=== PATIENT | female | born 1985 | race Caucasian/White ===

== ENCOUNTER 2016-07-01 06:36 | Emergency (ER) | payer OTHER ==
[~2016-07-01] VITALS: Ht 160 cm; Wt 69.6 kg
[~2016-07-01 06:36] MED LIST: HYDR-5688 PO; IBUP-1450 PO
[2016-07-01 06:41] VITALS: TEMP 37; Ht 160 cm; Wt 69.6 kg
[2016-07-01] MEDS ORDERED: TYLOTC500 PO (07:03)
[2016-07-01] MEDS ORDERED: SODIUM CHLORIDE 0.9% 1000ML 1,000 ML IV STA (07:09)
--- NOTE | 2016-07-01 07:20 | EMERGENCY ROOM VISIT NOTE ---
History First contact with patient: 06:59 Chief Complaint: FLANK PAIN Stated Complaint: PAIN/DISCOMFORT IN LEFT SIDE History of Present Illness The patient is a 30 year old female who presents to the Emergency Room with complaints of pain in her left upper abdomen with radiation into the back for the past one week. The patient reports that she has had a "uncomfortable" feeling in her left upper abdomen which radiates to the left flank. She first noticed a gradual onset of pain one week ago. She states that the pain has been constant since then. She reports she believes she has had low-grade fevers throughout the week. She saw her primary care provider 3 days ago, who ordered labs and a urinalysis. She is unsure of the results of these. The patient did have a few episodes of vomiting but has not vomited for 3 days now. She's been taking Tylenol for the pain but did not take any this morning. The patient rates her discomfort a 7/10. She states it is sometimes worse with movement. She denies any history of abdominal surgery. She does report a history of adrenal hyperplasia. She denies any chest pain, shortness of breath , changes in bowel movements. She does state that her urine seems dark in color but denies any other urinary symptoms. Review of Systems A complete 10-point Review of Systems was discussed with the patient, with pertinent positives and negatives listed in the History of Present Illness. All remaining Review of Systems questions can be considered negative unless otherwise specified. Past Medical/Surgical History Medical Problems: (1) Acute thoracic myofascial strain (2) Asthma (3) Congenital adrenal hyperplasia (4) Left elbow tendonitis (5) Mid back pain (6) Pain, dental (7) Work related injury Social History Smoking Status: Current Every Day Smoker Drug Use: none Housing Status: lives with family Occupation Status: employed Current/Historical Medications Scheduled Omeprazole (Prilosec), 40 MG PO DAILY Scheduled PRN Acetaminophen (Tylenol), 1,000 MG PO Q4 PRN for Pain or Fever Allergies Coded Allergies: Silver (Unverified Allergy, Severe, RASH, 07/01/16) Penicillins (Verified Allergy, Unknown, 07/01/16) Physical Exam Vital Signs Date Time Temp Pulse Resp B/P Pulse Ox O2 Delivery O2 Flow Rate FiO2 07/01/16 09:27 83 18 103/57 97 Room Air 07/01/16 08:43 72 18 101/66 98 Room Air 07/01/16 06:41 37.0 110 18 123/80 97 Room Air Physical Exam VITALS: Vitals are noted on the nurse's note and reviewed by myself. Vital signs stable. GENERAL: This is a 30-year-old female, in no acute distress, nondiaphoretic, well-developed well-nourished. HEART: Regular rate and rhythm without murmurs gallops or rubs. LUNGS: Clear to auscultation bilaterally without wheezes, rales or rhonchi. ABDOMEN: Positive bowel sounds x 4. The abdomen is soft. There is mild tenderness of the left upper quadrant and epigastric region. No guarding or rebound tenderness. MUSCULOSKELETAL: No CVA tenderness. NEURO: Patient was alert and oriented to person place and time. Medical Decision & Procedures ER Provider Diagnostic Interpretation: CT OF THE ABDOMEN AND PELVIS WITH CONTRAST TECHNIQUE: Following IV administration of 93 mL of Optiray-320, axial images of the abdomen and pelvis were obtained from the lung bases to the proximal femurs. Images were reviewed in the axial, sagittal, and coronal planes. IV contrast was administered without complication. CT DOSE: 291.64 mGy.cm FINDINGS: The liver, spleen, kidneys and pancreas are normal. Significant bilateral adrenal enlargement, left greater than right, is similar to CT of July 14, 2011. The left adrenal gland measures 7.5 x 2.7 cm. This is similar to prior exam. There is no hydronephrosis. No biliary or pancreatic ductal dilatation is present. No enlarged abdominal or pelvic lymph nodes are present. The caliber and wall thickness of small and large bowel are normal. The appendix is normal. Skeletal structures are unremarkable. Visualized portions of the lower lungs demonstrate tree-in-bud nodules within the right middle lobe and mucoid impaction. IMPRESSION: 1. No acute process within the abdomen or pelvis. 2. No change in significant bilateral adrenal enlargement, left greater than right, since CT of July 14, 2011. The findings favor adrenal hyperplasia. 3. Minimal tree-in-bud opacities within the right middle lobe which suggest a mild bronchiolitis, likely infectious. Laboratory Results 07/01/16 07:15 Red Blood Count 5.24, Mean Corpuscular Volume 87.8, Mean Corpuscular Hemoglobin 31.1, Mean Corpuscular Hemoglobin Concent 35.4, Mean Platelet Volume 10.5, Neutrophils (%) (Auto) 61.8, Lymphocytes (%) (Auto) 23.8, Monocytes (%) (Auto) 10.2, Eosinophils (%) (Auto) 3.4, Basophils (%) (Auto) 0.5, Neutrophils # (Auto ) 5.95, Lymphocytes # (Auto) 2.29, Monocytes # (Auto) 0.98, Eosinophils # (Auto ) 0.33, Basophils # (Auto) 0.05 07/01/16 07:15 Test 07/01/16 07:15 White Blood Count 9.63 K/uL (4.8-10.8) Red Blood Count 5.24 M/uL (4.2-5.4) Hemoglobin 16.3 g/dL (12.0-16.0) Hematocrit 46.0 % (37-47) Mean Corpuscular Volume 87.8 fL (80-100) Mean Corpuscular Hemoglobin 31.1 pg (25-34) Mean Corpuscular Hemoglobin Concent 35.4 g/dl (32-36) Platelet Count 341 K/uL (130-400) Mean Platelet Volume 10.5 fL (7.4-10.4) Neutrophils (%) (Auto) 61.8 % Lymphocytes (%) (Auto) 23.8 % Monocytes (%) (Auto) 10.2 % Eosinophils (%) (Auto) 3.4 % Basophils (%) (Auto) 0.5 % Neutrophils # (Auto) 5.95 K/uL (1.4-6.5) Lymphocytes # (Auto) 2.29 K/uL (1.2-3.4) Monocytes # (Auto) 0.98 K/uL (0.11-0.59) Eosinophils # (Auto) 0.33 K/uL (0-0.5) Basophils # (Auto) 0.05 K/uL (0-0.2) RDW Standard Deviation 41.4 fL (36.4-46.3) RDW Coefficient of Variation 12.8 % (11.5-14.5) Immature Granulocyte % (Auto) 0.3 % Immature Granulocyte # (Auto) 0.03 K/uL (0.00-0.02) Urine Color YELLOW Urine Appearance CLEAR (CLEAR) Urine pH 6.0 (4.5-7.5) Urine Specific [place] 1.013 (1.000-1.030) Urine Protein NEG (NEG) Urine Glucose (UA) NEG (NEG) Urine Ketones NEG (NEG) Urine Occult Blood NEG (NEG) Urine Nitrite NEG (NEG) Urine Bilirubin NEG (NEG) Urine Urobilinogen NEG (NEG) Urine Leukocyte Esterase NEG (NEG) Urine Test NEG (NEG) Anion Gap 12.0 mmol/L (3-11) Est Creatinine Clear Calc Drug Dose 83.8 ml/min Estimated GFR () 97.4 Estimated GFR (Non- 84.1 BUN/Creatinine Ratio 12.9 (10-20) Calcium Level 9.0 mg/dl (8.5-10.1) Total Bilirubin 0.2 mg/dl (0.2-1) Aspartate Amino Transf (AST/SGOT) 15 U/L (15-37) Alanine Aminotransferase (ALT/SGPT) 19 U/L (12-78) Alkaline Phosphatase 87 U/L (45-117) Total Protein 7.7 gm/dl (6.4-8.2) Albumin 4.2 gm/dl (3.4-5.0) Globulin 3.5 gm/dl (2.5-4.0) Albumin/Globulin Ratio 1.2 (0.9-2) Lipase 115 U/L (73-393) Medications Administered Medications (Trade) Dose Ordered Sig/Saul Route Start Time Stop Time Status Last Admin Dose Admin Sodium Chloride (Nss 1000ml) 1,000 ml @ 999 mls/hr Q1H1M STAT IV 07/01/16 07:09 07/01/16 08:09 DC 07/01/16 07:27 999 MLS/HR Morphine Sulfate (MoRPHine SULFATE INJ) 4 mg NOW STAT IV 07/01/16 07:31 07/01/16 07:32 DC 07/01/16 07:42 4 MG Medical Decision Differential diagnosis includes gastritis, cholecystitis, gastroenteritis, colitis, among others. The patient was evaluated as above. Labs were drawn and IV access was obtained. Imaging studies were performed and read by radiology as above. The patient was medicated with 1 L normal saline solution and 4 mg morphine IV. The patient was reassessed multiple times during their stay in the emergency department and remained in stable condition. The patient is a and 30-year-old female who presents today complaining of left upper quadrant abdominal pain. Labs revealed no leukocytosis, anemia or concerning electrolyte abnormalities. Urinalysis was not suggestive of infection. Urine was negative. CT scan of the abdomen and pelvis showed no acute findings. The patient does have adrenal hyperplasia, consistent with her verbal history of congenital adrenal hyperplasia. The patient did have evidence of possible bronchiolitis but has not been complaining of any upper respiratory symptoms. The patient has been here previously for epigastric discomfort and has been diagnosed with possible gastritis. I did recommend that she again began taking a PPI and follow up with her primary care provider. She will return for any worsening pain or any new/concerning symptoms. Based on the patient's presentation, lab results, and imaging studies, I feel the patient is stable for outpatient treatment. The patient's case was reviewed with Dr. Greenwood, ED attending physician, who agreed with my assessment and treatment plan. Discharge instructions were reviewed with the patient. The patient verbalized understanding of my assessment and treatment plan and was discharged home in good condition. Impression Primary Impression: Abdominal pain, left upper quadrant Departure Information Dispostion Home / Self-Care Condition GOOD Prescriptions Omeprazole (Prilosec) 40 Mg Capcr 40 MG PO DAILY for 14 Days, #14 CAP Prov: Miranda Almonte ., YONATHAN 07/01/16 Referrals Cordell Rosas, D.O. (PCP) Patient Instructions My [facility] Additional Instructions You have been treated in the Emergency Department for your Abdominal Pain. Laboratory results and imaging studies have ruled out any emergent causes for your abdominal pain which would warrant admission or surgery. Take Prilosec as prescribed until follow-up with your primary care provider. You may also use Tums or Mylanta [id number] for additional relief of her pain. For pain control, you can use the following [id number] medicines (if >12 yo): - Regular strength (325mg/tab) Tylenol (acetaminophen) 2 tabs every 4-6 hours as needed. Do not exceed 12 tablets in a 24 hour period. Avoid taking more than 4 grams (4000 mg) of Tylenol per day. This includes any other sources of acetaminophen you may take on a regular basis. Drink plenty of water and stay well hydrated. Follow-up with your primary care provider this week. Return to the emergency department if your symptoms persist despite treatment plan outlined above or if the following symptoms occur: fevers, chills, worsening nausea/vomiting, blood in your stool or urine.
[2016-07-01] MEDS ORDERED: MoRPHine SULFATE 4 MG/ML 1 ML CARP\\VIAL IV STA (07:31)
[2016-07-01 07:37] LABS: URINE APPEARANCE CLEAR (CLEAR); URINE BILIRUBIN NEG (NEG); URINE COLOR YELLOW; URINE NITRITE NEG (NEG); URINE SPECIFIC GRAVITY 1.013 (1.000-1.030); UROBILINOGEN NEG (NEG); ZZUR CULT IF INDIC CLEAN CATCH NO
[2016-07-01 07:38] LABS: BASO % 0.5 %; BASO ABS # 0.05 K/uL (0-0.2); COMPLETE YES; EOS % 3.4 %; IG% 0.3 %; LYMPH % 23.8 %; LYMPH ABS # 2.29 K/uL (1.2-3.4); MEAN CELL VOLUME 87.8 fL (80-100); MEAN CORPUSCULAR HEMOGLOBIN 31.1 pg (25-34); MEAN CORPUSCULAR HGB CONC 35.4 g/dl (32-36); MEAN PLATELET VOLUME 10.5 fL (7.4-10.4); MONO % 10.2 %; NEUT % 61.8 %; PLATELET COUNT 341 K/uL (130-400); PREG INTERNAL NEGATIVE QC NEG CLEAR BACKGROUND; PREG INTERNAL POSITIVE QC POS CONTROL LINE; RED BLOOD COUNT 5.24 M/uL (4.2-5.4); WHITE BLOOD COUNT 9.63 K/uL (4.8-10.8)
[2016-07-01 07:40] LABS: MANUAL MICROSCOPIC REQUIRED? NO; REVIEW REQ? NO
[2016-07-01 07:54] LABS: BUN/CREATININE RATIO 12.9 (10-20); CREATININE 0.91 mg/dl (0.60-1.20)
[2016-07-01 07:57] LABS: ALB/GLOB RATIO 1.2 (0.9-2)
--- NOTE | 2016-07-01 08:35 | DIAGNOSTIC IMAGING REPORT ---
CT OF THE ABDOMEN AND PELVIS WITH CONTRAST CLINICAL HISTORY: Left upper quadrant pain and vomiting. COMPARISON STUDY: CT of the abdomen and pelvis July 14, 2011 TECHNIQUE: Following IV administration of 93 mL of Optiray-320, axial images of the abdomen and pelvis were obtained from the lung bases to the proximal femurs. Images were reviewed in the axial, sagittal, and coronal planes. IV contrast was administered without complication. CT DOSE: 291.64 mGy.cm FINDINGS: The liver, spleen, kidneys and pancreas are normal. Significant bilateral adrenal enlargement, left greater than right, is similar to CT of July 14, 2011. The left adrenal gland measures 7.5 x 2.7 cm. This is similar to prior exam. There is no hydronephrosis. No biliary or pancreatic ductal dilatation is present. No enlarged abdominal or pelvic lymph nodes are present. The caliber and wall thickness of small and large bowel are normal. The appendix is normal. Skeletal structures are unremarkable. Visualized portions of the lower lungs demonstrate tree-in-bud nodules within the right middle lobe and mucoid impaction. IMPRESSION: 1. No acute process within the abdomen or pelvis. 2. No change in significant bilateral adrenal enlargement, left greater than right, since CT of July 14, 2011. The findings favor adrenal hyperplasia. 3. Minimal tree-in-bud opacities within the right middle lobe which suggest a mild bronchiolitis, likely infectious. Electronically signed by: Gaston Swan M.D. 07/01/2016 8:33 AM Dictated Date/Time: 07/01/2016 8:18 AM
[2016-07-01] MEDS ORDERED: OMEP40CA PO (09:10)
[2016-07-01 09:27] VITALS: BP 103/57; PULSE 83; O2SAT 97
[2016-07-01] MEDS ORDERED: ALUM-30 PO (17:58)
[2016-07-01] MEDS ORDERED: OXYC1TAB3 PO (19:37)
== END 2016-07-01 09:38 | disposition home or self-care (01) ==
LOC: C.EDB 06:37
DX: R10.12 Left upper quadrant pain (principal); E27.8 Other specified disorders of adrenal gland; J45.909 Unspecified asthma, uncomplicated; F17.200 Nicotine dependence, unspecified, uncomplicated

== ENCOUNTER 2016-07-01 17:01 | Emergency (ER) | payer OTHER ==
[~2016-07-01] VITALS: Ht 160 cm; Wt 70.9 kg
[~2016-07-01 17:01] MED LIST changes: +OMEP40CA PO; +TYLOTC500 PO
[2016-07-01 17:07] VITALS: TEMP 36.8; Ht 160 cm; Wt 70.9 kg
[2016-07-01] MEDS ORDERED: ALUM-30 PO (17:58)
[2016-07-01] MEDS ORDERED: LIDOCAINE HCL 2% VISC SOLN 20 ML UDC PO STA (18:02)
[2016-07-01] MEDS ORDERED: ALUMINUM/MAGNESIUM SUSP 30 ML UDC PO STA (18:02)
[2016-07-01] MEDS ORDERED: OXYCODONE HCL IR 5 MG TAB (IMMEDIATE RELEASE) PO STA (18:49)
[2016-07-01] MEDS ORDERED: OXYC1TAB3 PO (19:37)
--- NOTE | 2016-07-01 19:39 | EMERGENCY ROOM VISIT NOTE ---
History First contact with patient: 17:55 Chief Complaint: FLANK PAIN Stated Complaint: ABD PAIN WORSENING,LF SIDED ABD NEAR BLADDER History of Present Illness The patient is a 30 year old female who presents to the Emergency Room with complaints that her abdominal pain has persisted and gotten worse. The patient states that she was seen in the emergency room this morning for the same symptoms. The patient states that she went home and was able to keep food down. She has not vomited since being in the emergency room. She also states that she got a sharp pain in the left lower abdomen near her bladder but now she has pain in the epigastric and left upper quadrant. The patient denies any chest pain or shortness of breath. The patient states that she came back to the emergency room because at work is what was stated on her discharge papers. Review of Systems 10 system review was performed and was negative unless stated otherwise history of present illness. Past Medical/Surgical History Medical Problems: (1) Acute thoracic myofascial strain (2) Asthma (3) Congenital adrenal hyperplasia (4) Left elbow tendonitis (5) Mid back pain (6) Pain, dental (7) Work related injury Social History Smoking Status: Current Every Day Smoker Drug Use: none Housing Status: lives with family Occupation Status: employed Current/Historical Medications Scheduled Alum & Mag Hydrox-Simethicone (Mylanta), 1 DOSE PO DIRECTED Omeprazole (Prilosec), 40 MG PO DAILY Scheduled PRN Acetaminophen (Tylenol), 1,000 MG PO Q4 PRN for Pain or Fever Allergies Coded Allergies: Silver (Unverified Allergy, Severe, RASH, 07/01/16) Penicillins (Verified Allergy, Unknown, 07/01/16) Physical Exam Vital Signs Date Time Temp Pulse Resp B/P Pulse Ox O2 Delivery O2 Flow Rate FiO2 07/01/16 18:17 70 18 101/54 98 Room Air 07/01/16 17:07 36.8 81 18 119/80 99 Room Air Physical Exam GENERAL: 30-year-old white female appears in no acute distress. MENTAL Status: Alert and oriented 3. MOUTH: Mucosa is moist. NECK: Supple, no lymphadenopathy noted. No carotid bruits noted. LUNGS: Clear auscultation without wheezes rales or rhonchi. CARDIAC: Regular rate and rhythm without murmur. Pulses is full and equal throughout. BACK: No CVA tenderness noted. ABDOMEN: Positive bowel sounds all 4 quadrants. Soft, mild tenderness palpation in the left upper quadrant otherwise nontender to palpation without organomegaly or masses. EXTREMITIES: No cyanosis or edema noted. Medical Decision & Procedures Medications Administered Medications (Trade) Dose Ordered Sig/Saul Route Start Time Stop Time Status Last Admin Dose Admin Lidocaine HCl (Viscous Lidocaine 2% Soln) 10 ml NOW STAT PO 07/01/16 18:02 07/01/16 18:03 DC 07/01/16 18:15 10 ML Al Hydroxide/Mg Hydroxide (Maalox Susp) 30 ml NOW STAT PO 07/01/16 18:02 07/01/16 18:03 DC 07/01/16 18:14 30 ML Oxycodone HCl (Roxicodone Immediate Rel Tab) 5 mg NOW STAT PO 07/01/16 18:49 07/01/16 18:50 DC 07/01/16 18:55 5 MG ED Course The patient was evaluated. The patient's EMR was reviewed from this morning. The patient had a CAT scan without any acute findings this morning. Labs were unremarkable. Urinalysis was negative. The patient was given a GI cocktail. The patient was reevaluated and still was complaining of pain and therefore he was given OxyIR 5 mg by mouth.. The patient was reevaluated was feeling slightly better. The patient was discharged home with her mother driving. Medical Decision Differential diagnosis include acute gastritis, peptic ulcer disease, GERD, UTI , ureteral calculi, diverticulitis, colitis The patient had a full workup earlier today therefore no additional diagnostic imaging or laboratory studies were performed. Impression Primary Impression: Abdominal pain, left upper quadrant Additional Impression: Gastroenteritis Departure Information Dispostion Home / Self-Care Condition GOOD Prescriptions Oxycodone Immediate Rel Tab (ROXICODONE IR) 5 Mg Tab 5 MG PO Q6H Y for Pain, #14 TAB Prov: Cathy Monroy PA-C 07/01/16 Referrals Cordell Rosas D.OEmely (PCP) Forms HOME CARE DOCUMENTATION FORM, IMPORTANT VISIT INFORMATION Patient Instructions My [employer] Additional Instructions Push fluids but did not drink too much. Follow bland diet. Advance diet slowly as tolerated. Take Zofran as needed for nausea. Take OxyIR as needed for pain. Do not drive while taking the OxyIR. Recommend follow-up with your family doctor and possible referral to gastroenterology for colonoscopy and/or endoscopy if symptoms persist. Problem Qualifiers
[2016-07-01 20:05] VITALS: BP 112/73; PULSE 66; O2SAT 98
== END 2016-07-01 20:06 | disposition home or self-care (01) ==
LOC: C.EDB 17:01 → C.EDC 20:06
DX: K52.9 Noninfective gastroenteritis and colitis, unspecified (principal); J45.909 Unspecified asthma, uncomplicated; E27.8 Other specified disorders of adrenal gland; F17.200 Nicotine dependence, unspecified, uncomplicated

== ENCOUNTER 2016-10-11 14:25 | Emergency (ER) | payer OTHER ==
[~2016-10-11] VITALS: Ht 160 cm; Wt 70.4 kg
[~2016-10-11 14:25] MED LIST changes: +ALUM-30 PO; -HYDR-5688 PO; -IBUP-1450 PO; -OMEP40CA PO; +OXYC1TAB3 PO
[2016-10-11 14:47] VITALS: TEMP 36.9; Ht 160 cm; Wt 70.4 kg
--- NOTE | 2016-10-11 16:42 | DIAGNOSTIC IMAGING REPORT ---
RIGHT FOOT MIN 3 VIEWS ROUTINE CLINICAL HISTORY: Dorsal right foot pain and swelling. COMPARISON: None FINDINGS: Tarsometatarsal joints are intact. There is no acute fracture. A lucency within the distal tuft of the distal pharynx the right first toe is likely chronic. IMPRESSION: Lucency within the distal tuft of the distal phalanx of the right great toe. This is probably old although an acute nondisplaced fracture could appear similar. Electronically signed by: Gaston Swan M.D. 10/11/2016 4:41 PM Dictated Date/Time: 10/11/2016 4:39 PM
[2016-10-11] MEDS ORDERED: ASPI325T39 PO (16:53)
[2016-10-11] MEDS ORDERED: HYDR-5688 PO (16:53)
[2016-10-11] MEDS ORDERED: FLR/1 PO (16:53)
[2016-10-11] MEDS ORDERED: PRED-301 PO (16:53)
--- NOTE | 2016-10-11 17:27 | DIAGNOSTIC IMAGING REPORT ---
RIGHT LOWER EXTREMITY VENOUS DOPPLER CLINICAL HISTORY: R dorsal foot pain/swelling - R/O DVT COMPARISON STUDY: No previous studies for comparison. TECHNIQUE: Sonography of the deep venous system of the right lower extremity was performed. Compression and augmentation were evaluated. FINDINGS: The common femoral, superficial femoral and popliteal veins were compressible. Augmentation was normal. Flow was shown within the deep calf vessels. IMPRESSION: No evidence of deep venous thrombus within the right lower extremity. Electronically signed by: Gaston Swan M.D. 10/11/2016 5:25 PM Dictated Date/Time: 10/11/2016 5:25 PM
[2016-10-11 18:17] VITALS: BP 108/58; PULSE 78; O2SAT 97
--- NOTE | 2016-10-11 19:07 | EMERGENCY ROOM VISIT NOTE ---
History First contact with patient: 15:49 Chief Complaint: LEG PAIN,LEG INJURY Stated Complaint: PAIN IN LOWER LEG/ANKLE - SWELLING History of Present Illness The patient is a 31 year old female who presents to the Emergency Room with complaints of right foot pain and swelling for the past 2 days. The patient now reports significant pain with weightbearing, rating her discomfort a 9 out of 10. She denies any known injury. She does work on her feet all day long. She has been applying ice and elevating the foot without relief. The patient has also noticed some paresthesias of the foot as well. The patient denies any prior history of right foot injuries or DVT. The patient went to an urgent care facility yesterday and received a prescription for Vicodin. There was no additional workup performed. Review of Systems 10 system review was performed and was negative except for pertinent positives and negatives as indicated in history of present illness Past Medical/Surgical History Medical Problems: (1) Acute thoracic myofascial strain (2) Asthma (3) Congenital adrenal hyperplasia (4) Left elbow tendonitis (5) Mid back pain (6) Pain, dental (7) Work related injury Family History Unremarkable Social History Smoking Status: Current Every Day Smoker Drug Use: none Housing Status: lives with family Occupation Status: employed Current/Historical Medications Scheduled Aspirin (Aspirin Ec), 325 MG PO BID Fludrocortisone Acetate (Florinef), 1 TAB PO DAILY Hydrocodone/Acetaminophen 5MG/325MG ([place] 5MG/325MG), 1 TABLET PO BID Prednisone (Prednisone), 5 MG PO DAILY Allergies Coded Allergies: Silver (Unverified Allergy, Severe, RASH, 07/01/16) Penicillins (Verified Allergy, Unknown, 07/01/16) Physical Exam Vital Signs Date Time Temp Pulse Resp B/P Pulse Ox O2 Delivery O2 Flow Rate FiO2 10/11/16 18:17 78 19 108/58 97 10/11/16 17:39 84 19 100/55 97 10/11/16 16:29 79 18 114/64 95 Room Air 10/11/16 14:47 36.9 72 20 105/64 97 Room Air Physical Exam CONSTITUTIONAL: Healthy and well nourished. Alert and oriented X 3 with positive affect. Patient does not appear in any acute distress on initial exam. HEENT: Normocephalic, atraumatic. Pupils equal, round and reactive. NECK: Full active range of motion without discomfort. RESPIRATORY: Clear to auscultation bilaterally with no wheezing, crackles, rhonchi or stridor. CARDIOVASCULAR: Regular rate and rhythm with no murmurs, rubs or gallops. GASTROINTESTINAL: Bowel sounds present in all quadrants. Soft and nontender to palpation. MUSCULOSKELETAL: Examination shows moderate edema of the right foot and ankle region. She is tender across the dorsum of the foot. Subtalar motion also worsens her discomfort. No focal tenderness to palpation through the Achilles tendon, calcaneus, metatarsals, phalanges or ankle region. Negative anterior draw. Pedal pulses are intact. INTEGUMENTARY: No rash or other significant dermatologic conditions noted. NEUROLOGIC: No focal neurologic deficits noted. Right foot and toes are sensory intact. Medical Decision & Procedures ER Provider Diagnostic Interpretation: Venous ultrasound of the right lower extremity is negative for deep vein thrombosis. Radiologist report is as follows: RIGHT LOWER EXTREMITY VENOUS DOPPLER CLINICAL HISTORY: R dorsal foot pain/swelling - R/O DVT COMPARISON STUDY: No previous studies for comparison. TECHNIQUE: Sonography of the deep venous system of the right lower extremity was performed. Compression and augmentation were evaluated. FINDINGS: The common femoral, superficial femoral and popliteal veins were compressible. Augmentation was normal. Flow was shown within the deep calf vessels. IMPRESSION: No evidence of deep venous thrombus within the right lower extremity. My interpretation of right foot x-rays does not show any midfoot fractures or subluxation. Radiologist does question an age indeterminate fracture of the tuft of the great toe. Radiologist report is as follows: RIGHT FOOT MIN 3 VIEWS ROUTINE CLINICAL HISTORY: Dorsal right foot pain and swelling. COMPARISON: None FINDINGS: Tarsometatarsal joints are intact. There is no acute fracture. A lucency within the distal tuft of the distal pharynx the right first toe is likely chronic. IMPRESSION: Lucency within the distal tuft of the distal phalanx of the right great toe. This is probably old although an acute nondisplaced fracture could appear similar. ED Course Patient history and physical exam were performed. Nurse's notes were reviewed. Vital signs were reviewed and normal. X-rays of the right foot shows an age indeterminate tuft fracture of the great toe. The patient reports that she dropped a board on her foot last fall, and was seen here. She was told that she did not have any fractures. Venous ultrasound of the right lower extremity today was normal as well. The patient was advised that her clinical exam is suggestive of a midfoot sprain. Crutches were dispensed. The patient argued for a while about how she is to work or get around because of the pain. The patient was advised that if she had intermittently applies ice, elevate the foot and use crutches for ambulation, her pain should be easy to control. She was recently here and received a prescription for Vicodin. She was instructed to follow-up with orthopedics if symptoms persist. The patient voiced understanding of all discharge instructions, and rated her discomfort a 4 out of 10 at the time of discharge. [place] Drug Monitoring Program Search Results: patient reviewed within database, no issues identified Impression Primary Impression: Sprain of right foot Departure Information Referrals Cordell Rosas, D.OEmely (PCP) Patient Instructions My [facility] Problem Qualifiers Primary Impression: Sprain of right foot Encounter type: initial encounter Qualified Codes: S93.601A - Unspecified sprain of right foot, initial encounter
== END 2016-10-11 18:27 | disposition home or self-care (01) ==
LOC: C.EDB 14:26 → C.EDC 18:27
DX: S93.601A Unspecified sprain of right foot, initial encounter (principal); X58.XXXA Exposure to other specified factors, initial encounter; J45.909 Unspecified asthma, uncomplicated; F17.200 Nicotine dependence, unspecified, uncomplicated; Z87.828 Personal history of other (healed) physical injury and trauma; Z88.0 Allergy status to penicillin; Z91.09 Other allergy status, other than to drugs and biological substances

== ENCOUNTER 2016-11-18 10:46 | Emergency (ER) | payer OTHER ==
[~2016-11-18] VITALS: Ht 161.3 cm; Wt 67.2 kg
[~2016-11-18 10:46] MED LIST changes: -ALUM-30 PO; +ASPI325T39 PO; +FLR/1 PO; +HYDR-5688 PO; -OXYC1TAB3 PO; +PRED-301 PO; -TYLOTC500 PO
[2016-11-18 10:50] VITALS: TEMP 36.9; Ht 161.3 cm; Wt 67.2 kg
[2016-11-18] MEDS ORDERED: ACETAMINOPHEN/CODEINE 300/30MG TAB PO ONE (11:15)
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
[2016-11-18] MEDS ORDERED: HYDR-5688 PO (14:29)
[2016-11-18 14:47] VITALS: BP 123/80; PULSE 74; O2SAT 99
== END 2016-11-18 14:48 | disposition home or self-care (01) ==
LOC: C.EDB 10:47 → C.EDD 14:48
DX: S22.32XA Fracture of one rib, left side, initial encounter for closed fracture (principal); V49.50XA Passenger injured in collision with unspecified motor vehicles in traffic accident, initial encounter; M46.92 Unspecified inflammatory spondylopathy, cervical region; M46.90 Unspecified inflammatory spondylopathy, site unspecified; J45.909 Unspecified asthma, uncomplicated; F17.210 Nicotine dependence, cigarettes, uncomplicated; Z87.828 Personal history of other (healed) physical injury and trauma; Z87.11 Personal history of peptic ulcer disease; Z79.82 Long term (current) use of aspirin; Z79.899 Other long term (current) drug therapy; Z88.0 Allergy status to penicillin; Z91.09 Other allergy status, other than to drugs and biological substances

== ENCOUNTER 2017-01-14 18:16 | Emergency (ER) | payer OTHER ==
[~2017-01-14] VITALS: Ht 162.6 cm; Wt 73.3 kg
[~2017-01-14 18:16] MED LIST changes: -FLR/1 PO; -PRED-301 PO
[2017-01-14 18:25] VITALS: TEMP 36.6; Ht 162.6 cm; Wt 73.3 kg
--- NOTE | 2017-01-14 18:50 | EMERGENCY ROOM VISIT NOTE ---
History Report prepared by Bonilla: Bijan Barksdale Under the Supervision of: Dr. Shubham Dyer M.D. First contact with patient: 18:30 Chief Complaint: SWELLING TO EXTREMITY Stated Complaint: LOWER EXT SWELLING AND PAIN History of Present Illness The patient is a 31 year old female who presents to the Emergency Room with complaints of worsening bilateral leg swelling for the past two weeks. The patient states that she was on vacation, and the swelling went into her left leg. A few days later the patient got some swelling in her right leg. The patient states that today she tried to get up for work, and she was having leg pain and swelling worse than before. She additionally states that she has been having headaches and some shortness of breath, though she smokes. 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 The patient denies any family history of blood clots. She states that she is taking prednisone, Florinef and Tylenol for the pain. The patient has a history of adrenal hyperplasia. Source of History: patient Onset: two weeks ago Position: leg (bilateral) Quality: other (swelling) Timing: worsening Associated Symptoms: + headache, + SOB Review of Systems See HPI for pertinent positives & negatives. A total of 10 systems reviewed and were otherwise negative. Past Medical & Surgical Medical Problems: (1) Acute thoracic myofascial strain (2) Asthma (3) Congenital adrenal hyperplasia (4) Left elbow tendonitis (5) Mid back pain (6) Pain, dental (7) Work related injury Old medical records were reviewed. Nurse's notes were reviewed and I agree with. Social History Smoking Status: Current Every Day Smoker Drug Use: none Housing Status: lives with family Occupation Status: employed Current/Historical Medications Scheduled Fludrocortisone Acetate (Florinef), 0.1 MG PO HS Prednisone (Prednisone), 5 MG PO HS Allergies Coded Allergies: Silver (Unverified Allergy, Severe, RASH, 01/14/17) Penicillins (Verified Allergy, Unknown, 01/14/17) Physical Exam Vital Signs Date Time Temp Pulse Resp B/P (MAP) Pulse Ox O2 Delivery O2 Flow Rate FiO2 01/14/17 18:25 36.6 88 16 107/63 94 Room Air Physical Exam General: Non-ill appearing young female in no acute distress. HEENT: Normal cephalic atraumatic. Pupils are equal round and reactive to light. Extraocular movements are intact. Oropharynx is pink with moist mucous membranes. No swelling of the mouth lips or tongue. Neck: Supple with a midline trachea. No meningeal signs or stiffness, no JVD or bruits. No Stridor. Chest: Clear to auscultation bilaterally. No wheezes or rhonchi. No increased work of breathing. Heart: regular rate and rhythm. Abdomen: Soft nontender, nondistended without rebound guarding or rigidity. Extremities: Lower extremities have edema bilaterally mostly lateral. No redness or warmth. No calf tenderness. No cyanosis clubbing. No calf tenderness or assymetry Spine/Back. Non tender to palpation. No CVA tenderness Skin: Good turgor without rashes. Neurologic exam: Cranial nerves two through 12 are intact. Motor and sensation are intact and symmetrical throughout. Medical Decision & Procedures ER Provider Diagnostic Interpretation: Radiology results as stated below per my review and radiologist interpretation: ULTRASOUND BILATERAL LOWER EXTREMITY VENOUS CLINICAL HISTORY: Lower extremity pain and swelling. COMPARISON STUDY: Right lower extremity venous ultrasound dated 10/11/2016. TECHNIQUE: Real-time, grayscale, and color Doppler sonography of the deep veins of the right and left lower extremity was performed from the inguinal crease to the calf. Compression and augmentation were utilized. FINDINGS: There is no sonographic evidence of deep venous thrombosis identified in the right or left lower extremity. The common femoral, superficial femoral, and popliteal veins are patent and normally compressible bilaterally. The greater saphenous vein and the profunda femoris vein at the junction with the common femoral vein are clear in both legs. The visualized calf veins are patent bilaterally. Benign-appearing inguinal lymph nodes are incidentally noted. IMPRESSION: There is no sonographic evidence of deep venous thrombosis identified in the right or left lower extremity. Electronically signed by: Geovanny Goodman M.D. 01/14/2017 7:46 PM Dictated Date/Time: 01/14/2017 7:45 PM SINGLE VIEW CHEST CLINICAL HISTORY: Atypical chest pain. FINDINGS: An AP, portable, upright chest radiograph is compared to study dated 11/18/2016. The examination is degraded by portable technique and patient rotation. The cardiomediastinal silhouette is unremarkable. The lungs and pleural spaces are clear. No pneumothorax is seen. The bony thorax is grossly intact. IMPRESSION: No active disease in the chest Electronically signed by: Geovanny Goodman M.D. 01/14/2017 7:05 PM Dictated Date/Time: 01/14/2017 7:03 PM Laboratory Results 01/14/17 18:50 Red Blood Count 4.63, Mean Corpuscular Volume 91.6, Mean Corpuscular Hemoglobin 30.0, Mean Corpuscular Hemoglobin Concent 32.8, Mean Platelet Volume 9.4, Neutrophils (%) (Auto) 54.2, Lymphocytes (%) (Auto) 28.6, Monocytes (%) (Auto) 11.0, Eosinophils (%) (Auto) 5.1, Basophils (%) (Auto) 0.8, Neutrophils # (Auto ) 4.18, Lymphocytes # (Auto) 2.20, Monocytes # (Auto) 0.85, Eosinophils # (Auto ) 0.39, Basophils # (Auto) 0.06 01/14/17 18:50 Test 01/14/17 18:50 01/14/17 18:56 White Blood Count 7.70 K/uL (4.8-10.8) Red Blood Count 4.63 M/uL (4.2-5.4) Hemoglobin 13.9 g/dL (12.0-16.0) Hematocrit 42.4 % (37-47) Mean Corpuscular Volume 91.6 fL (80-100) Mean Corpuscular Hemoglobin 30.0 pg (25-34) Mean Corpuscular Hemoglobin Concent 32.8 g/dl (32-36) Platelet Count 348 K/uL (130-400) Mean Platelet Volume 9.4 fL (7.4-10.4) Neutrophils (%) (Auto) 54.2 % Lymphocytes (%) (Auto) 28.6 % Monocytes (%) (Auto) 11.0 % Eosinophils (%) (Auto) 5.1 % Basophils (%) (Auto) 0.8 % Neutrophils # (Auto) 4.18 K/uL (1.4-6.5) Lymphocytes # (Auto) 2.20 K/uL (1.2-3.4) Monocytes # (Auto) 0.85 K/uL (0.11-0.59) Eosinophils # (Auto) 0.39 K/uL (0-0.5) Basophils # (Auto) 0.06 K/uL (0-0.2) RDW Standard Deviation 47.1 fL (36.4-46.3) RDW Coefficient of Variation 14.0 % (11.5-14.5) Immature Granulocyte % (Auto) 0.3 % Immature Granulocyte # (Auto) 0.02 K/uL (0.00-0.02) Anion Gap 5.0 mmol/L (3-11) Est Creatinine Clear Calc Drug Dose 101.6 ml/min Estimated GFR () 116.6 Estimated GFR (Non- 100.6 BUN/Creatinine Ratio 13.4 (10-20) Uric Acid 4.9 mg/dl (2.6-7.2) Calcium Level 8.6 mg/dl (8.5-10.1) Total Bilirubin 0.4 mg/dl (0.2-1) Direct Bilirubin < 0.1 mg/dl (0-0.2) Aspartate Amino Transf (AST/SGOT) 20 U/L (15-37) Alanine Aminotransferase (ALT/SGPT) 24 U/L (12-78) Alkaline Phosphatase 76 U/L (45-117) Pro-B-Type Natriuretic Peptide 18 pg/ml (0-450) Total Protein 6.9 gm/dl (6.4-8.2) Albumin 3.6 gm/dl (3.4-5.0) Lipase 56 U/L (73-393) Thyroid Stimulating Hormone (TSH) 2.360 uIu/ml (0.300-4.500) Bedside Troponin I < 0.030 ng/ml (0-0.045) Laboratory studies as stated above per my review. ECG Indication: other (leg swelling) Rate (beats per minute): 82 Rhythm: normal sinus Findings: no acute ischemic change, other (Early repolarization) Comparison ECG Date: 08/09/11 Change: no significant change ED Course 0: Past medical records reviewed. The patient was evaluated in room B9, and a complete history and physical examination were performed. 1910: I reassessed the patient, and she was waiting for her ultrasound. 1950: Upon reevaluation, the patient is feeling well. I discussed the results and treatment plan with her. She verbalized agreement of the treatment plan. The patient was discharged home. Medical Decision Differentials include, but are not limited to; DVT, peripheral edema, cardiac disease, thyroid disease. This patient comes in as described above. She was placed in room B9. She has had bilateral lower extremity edema it has been hot and she does work on her feet. She does have congenital adrenal hyperplasia and has been taking her Florinef and prednisone has not missed any dosages. She has had no other symptoms. No chest pain or shortness of breath. No known injury. She was seen at [facility] [place] and referred here for possible DVTs. IV access established , EKG, chest x-ray, urinalysis and blood work were obtained. I also ordered ultrasounds of her legs bilaterally. She was reassessed frequently. EKG shows early repolarization unchanged from previous EKG. In no acute ischemic changes. Chest x-ray does not suggest congestive heart failure, pneumonia, or pneumothorax. She's had no fever or white count to suggest infection. There are no elevation of cardiac enzymes. There are no acute electrolyte or metabolic abnormalities. Clinically she does not appear to have cellulitis. Is no thyroid disease. BNP is not elevated nor is to troponin. There is no evidence to suggest any right-sided heart failure. Ultrasound shows no DVTs. Some of this may be from the hot weather and standing up at work. At this point , there is nothing to suggest this is related to the Florinef or adrenal hypoplasia. I told her to rest and elevate return if increasing pain or swelling, chest pain, shortness breath, fever chills, any new problems or concerns. Follow-up with her doctor this week for recheck. She was happy with plan and discharged to home. Medication Reconcilliation Current Medication List: was personally reviewed by me Blood Pressure Screening Patient's blood pressure: Normal blood pressure Impression Primary Impression: Bilateral lower extremity edema Scribe Attestation The scribe's documentation has been prepared under my direction and personally reviewed by me in its entirety. I confirm that the note above accurately reflects all work, treatment, procedures, and medical decision making performed by me. Departure Information Dispostion Home / Self-Care Referrals Cordell Rosas D.O. (PCP) Forms HOME CARE DOCUMENTATION FORM, IMPORTANT VISIT INFORMATION, WORK / SCHOOL INSTRUCTIONS Patient Instructions [facility] Additional Instructions Rest. Elevate your feet. Return if: Increasing pain or swelling, worsening symptoms, fever or chills, any new problems concerns. Follow-up with your doctor this week for recheck.
[2017-01-14 19:01] LABS: BASO % 0.8 %; BASO ABS # 0.06 K/uL (0-0.2); COMPLETE YES; EOS % 5.1 %; HEMATOCRIT 42.4 % (37-47); IG% 0.3 %; LYMPH % 28.6 %; MEAN CELL VOLUME 91.6 fL (80-100); MEAN CORPUSCULAR HGB CONC 32.8 g/dl (32-36); MEAN PLATELET VOLUME 9.4 fL (7.4-10.4); NEUT % 54.2 %; PLATELET COUNT 348 K/uL (130-400); RED BLOOD COUNT 4.63 M/uL (4.2-5.4)
--- NOTE | 2017-01-14 19:06 | DIAGNOSTIC IMAGING REPORT ---
SINGLE VIEW CHEST CLINICAL HISTORY: Atypical chest pain. FINDINGS: An AP, portable, upright chest radiograph is compared to study dated 11/18/2016. The examination is degraded by portable technique and patient rotation. The cardiomediastinal silhouette is unremarkable. The lungs and pleural spaces are clear. No pneumothorax is seen. The bony thorax is grossly intact. IMPRESSION: No active disease in the chest. Electronically signed by: Geovanny Goodman M.D. 01/14/2017 7:05 PM Dictated Date/Time: 01/14/2017 7:03 PM
[2017-01-14] MEDS ORDERED: PRED-301 PO (19:13)
[2017-01-14] MEDS ORDERED: FLUD0.1T10 PO (19:13)
[2017-01-14 19:18] LABS: ALT/SGPT 24 U/L (12-78); AST/SGOT 20 U/L (15-37); BLOOD UREA NITROGEN 10 mg/dl (7-18); BUN/CREATININE RATIO 13.4 (10-20); CALCIUM 8.6 mg/dl (8.5-10.1); CARBON DIOXIDE 29 mmol/L (21-32); CHLORIDE 105 mmol/L (98-107); CREATININE 0.78 mg/dl (0.60-1.20); GLUCOSE 84 mg/dl (70-99); SODIUM 139 mmol/L (136-145); URIC ACID 4.9 mg/dl (2.6-7.2)
[2017-01-14 19:29] LABS: ALKALINE PHOSPHATASE 76 U/L (45-117)
--- NOTE | 2017-01-14 19:47 | DIAGNOSTIC IMAGING REPORT ---
ULTRASOUND BILATERAL LOWER EXTREMITY VENOUS CLINICAL HISTORY: Lower extremity pain and swelling. COMPARISON STUDY: Right lower extremity venous ultrasound dated 10/11/2016. TECHNIQUE: Real-time, grayscale, and color Doppler sonography of the deep veins of the right and left lower extremity was performed from the inguinal crease to the calf. Compression and augmentation were utilized. FINDINGS: There is no sonographic evidence of deep venous thrombosis identified in the right or left lower extremity. The common femoral, superficial femoral, and popliteal veins are patent and normally compressible bilaterally. The greater saphenous vein and the profunda femoris vein at the junction with the common femoral vein are clear in both legs. The visualized calf veins are patent bilaterally. Benign-appearing inguinal lymph nodes are incidentally noted. IMPRESSION: There is no sonographic evidence of deep venous thrombosis identified in the right or left lower extremity. Electronically signed by: Geovanny Goodman M.D. 01/14/2017 7:46 PM Dictated Date/Time: 01/14/2017 7:45 PM
[2017-01-14 20:48] VITALS: BP 105/49; PULSE 71; O2SAT 100
[2017-01-14 21:43] LABS: URINE APPEARANCE CLEAR (CLEAR); URINE BILIRUBIN NEG (NEG); URINE COLOR YELLOW; URINE NITRITE NEG (NEG); URINE PH 7.5 (4.5-7.5); URINE SPECIFIC GRAVITY 1.009 (1.000-1.030); UROBILINOGEN NEG (NEG)
[2017-01-14 21:48] LABS: MANUAL MICROSCOPIC REQUIRED? NO; REVIEW REQ? NO
== END 2017-01-14 20:55 | disposition home or self-care (01) ==
LOC: C.EDB 18:17
DX: R60.0 Localized edema (principal); R51 Headache; F17.210 Nicotine dependence, cigarettes, uncomplicated; E27.8 Other specified disorders of adrenal gland; J45.909 Unspecified asthma, uncomplicated; E25.0 Congenital adrenogenital disorders associated with enzyme deficiency; Z79.899 Other long term (current) drug therapy

== ENCOUNTER 2017-09-09 12:14 | Emergency (ER) | payer OTHER ==
[~2017-09-09] VITALS: Ht 160 cm; Wt 74.8 kg
[~2017-09-09 12:14] MED LIST changes: -ASPI325T39 PO; +FLUD0.1T10 PO; -HYDR-5688 PO; +PRED-301 PO
[2017-09-09 12:30] VITALS: TEMP 36.8; Ht 160 cm; Wt 74.8 kg
[2017-09-09] MEDS ORDERED: BUPR8SUB19 SL (13:29)
[2017-09-09 13:48] LABS: BASO % 0.7 %; BASO ABS # 0.04 K/uL (0-0.2); EOS % 3.8 %; EOS ABS # 0.23 K/uL (0-0.5); HEMOGLOBIN 13.9 g/dL (12.0-16.0); IG# 0.01 K/uL (0.00-0.02); LYMPH % 31.7 %; LYMPH ABS # 1.93 K/uL (1.2-3.4); MEAN CELL VOLUME 89.4 fL (80-100); MEAN CORPUSCULAR HEMOGLOBIN 28.9 pg (25-34); MEAN CORPUSCULAR HGB CONC 32.3 g/dl (32-36); MEAN PLATELET VOLUME 9.6 fL (7.4-10.4); MONO % 12.2 %; MONO ABS # 0.74 K/uL (0.11-0.59); NEUT % 51.4 %; NEUT ABS # 3.13 K/uL (1.4-6.5); PLATELET COUNT 349 K/uL (130-400); RED CELL DISTRIBUTION WIDTH CV 14.4 % (11.5-14.5); RED CELL DISTRIBUTION WIDTH SD 47.7 fL (36.4-46.3); WHITE BLOOD COUNT 6.08 K/uL (4.8-10.8)
--- NOTE | 2017-09-09 13:50 | DIAGNOSTIC IMAGING REPORT ---
L-SPINE MIN 4 VIEWS ROUTINE CLINICAL HISTORY: Low back pain COMPARISON: Lumbar spine radiographs December 29, 2012. FINDINGS: There is minimal leftward curvature of the lumbar spine. Vertebral body heights are maintained. There is no fracture or suspicious lesion. There is mild disc space narrowing at L5-S1. Bowel gas pattern is normal. There is a moderate amount stool within the colon. IMPRESSION: 1. No lumbar spine fracture or subluxation. 2. Mild disc space narrowing at L5-S1. 3. Slight leftward curvature of the lumbar spine. Electronically signed by: Gaston Swan M.D. 09/09/2017 1:48 PM Dictated Date/Time: 09/09/2017 1:47 PM
[2017-09-09 14:26] LABS: ALBUMIN 3.6 gm/dl (3.4-5.0); CALCIUM 8.6 mg/dl (8.5-10.1); CREATININE 0.78 mg/dl (0.60-1.20)
[2017-09-09 14:30] LABS: TOTAL PROTEIN 6.9 gm/dl (6.4-8.2)
--- NOTE | 2017-09-09 15:13 | DIAGNOSTIC IMAGING REPORT ---
ULTRASOUND VENOUS DOPPLER LWR EXT BILA CLINICAL HISTORY: Bilateral lower extremity edema COMPARISON STUDY: No previous studies for comparison. FINDINGS: Real-time and color flow Doppler imaging were performed. Flow was seen within the femoral, popliteal and calf veins with no intraluminal thrombus demonstrated. The saphenous vein is patent. There are mildly prominent bilateral inguinal lymph nodes. IMPRESSION: No evidence of lower extremity DVT. Electronically signed by: Dinh Powell M.D. 09/09/2017 3:12 PM Dictated Date/Time: 09/09/2017 3:11 PM
--- NOTE | 2017-09-09 17:02 | DIAGNOSTIC IMAGING REPORT ---
(CHEST FOR PE) ANGIO WITH CT DOSE: 553.65 mGy.cm HISTORY: Chest pain dyspnea TECHNIQUE: Multiaxial CT images of the chest were performed following the intravenous administration of contrast to evaluate the pulmonary arteries. Maximal intensity projection images were also obtained. A dose lowering technique was utilized adhering to the principles of ALARA. COMPARISON STUDY: None. FINDINGS: The thoracic aorta is normal. The pulmonary vasculature enhances uniformly. No filling defects are appreciated. Bibasilar atelectatic change. The lungs otherwise appear clear. Moderate mediastinal adenopathy. Right para esophageal node image 85 measuring 1.3 cm. Para-aortic nodes measuring to 1.5 cm. Left paratracheal nodes measuring 1.6 cm. Subcarinal nodes measuring 2.5 cm. Left hilar nodes measuring to 1.3 cm. Right hilar nodes measuring to 1.5 cm. Small hiatal hernia. Splenomegaly measuring 11.5 cm. IMPRESSION: 1. Study is negative for pulmonary embolus. 2. Bibasilar atelectatic change. 3. Significant mediastinal and hilar adenopathy. 4. Splenic enlargement 5. Follow-up should be performed to exclude entities such as lymphoma/sarcoid. The above report was generated using voice recognition software. It may contain grammatical, syntax or spelling errors. Electronically signed by: Chencho Monroy M.D. 09/09/2017 5:01 PM Dictated Date/Time: 09/09/2017 4:54 PM
--- NOTE | 2017-09-09 17:08 | DIAGNOSTIC IMAGING REPORT ---
CT ABD/PELVIS IV CONTRAST ONLY CLINICAL HISTORY: Lower extremity edema, erythema COMPARISON STUDY: 07/01/2016 TECHNIQUE: Following the IV administration of 116 mL of [id number]-320, CT scan of the abdomen and pelvis was performed from the lung bases to the proximal femurs. Images are reviewed in the axial, sagittal, and coronal planes. IV contrast was administered without complication. A dose lowering technique was utilized adhering to the principles of ALARA. CT DOSE: FINDINGS: Lower chest: There are lingular right middle lobe and bilateral lower lobe atelectatic changes. A 9 mm pleural-based opacity within the right middle lobe while nonspecific likely reflects focal atelectasis. There is mild prominence the parasagittal soft tissues and subcarinal adenopathy is suspected. Liver: The contrast-enhanced liver is normal in size, contour, and attenuation. There is no intrahepatic biliary ductal dilatation. The hepatic veins and portal veins are patent. Gallbladder: Unremarkable. Spleen: Normal in size and attenuation. Pancreas: Unremarkable. Adrenal glands: There is persistent bilateral adrenal gland enlargement, left markedly greater than right. The left adrenal gland measures 81 x 28 mm. This finding has been present on studies dating back to 2011. This strongly favors a diagnosis of adrenal gland hyperplasia Kidneys: There is symmetric renal cortical enhancement. The kidneys are normal in size without hydronephrosis. Bowel: There are no transition zones to indicate bowel obstruction. There is no acute diverticulitis. The appendix appears normal. There is mild fecal retention. Peritoneum: There is no intraperitoneal free air or abdominal ascites. Vasculature: The abdominal aorta is normal in course and caliber. Adenopathy: Inguinal lymph nodes are the upper limits of normal in size. Pelvic viscera: The bladder, and pelvic viscera are unremarkable. Skeletal structures: No destructive osseous lesions are seen. IMPRESSION: 1. No evidence of bowel obstruction. No evidence of free air 2. Persistent significant bilateral adrenal gland enlargement left greater than right, likely representing adrenal hyperplasia 3. Suspected subcarinal lymphadenopathy 4. Inguinal lymph nodes at the upper limits of normal in size Electronically signed by: Dinh Powell M.D. 09/09/2017 5:07 PM Dictated Date/Time: 09/09/2017 4:59 PM
[2017-09-09] MEDS ORDERED: OPTIRAY 320 IV PRN (17:15)
[2017-09-09] MEDS ORDERED: HYDROCORTISONE SOD SUCCINATE 100 MG/2 ML VIAL IV STA (18:35)
[2017-09-09] MEDS ORDERED: CEPH500C PO (18:48)
--- NOTE | 2017-09-09 18:53 | EMERGENCY ROOM VISIT NOTE ---
History First contact with patient: 12:51 Chief Complaint: FOOT PAIN Stated Complaint: SWELLING IN FEET,TINGLING AND NUMBNESS,RANDOM PAIN History of Present Illness The patient is a 32 year old female who presents to the Emergency Room via private vehicle with complaints of "swelling in feet, tingling and numbness, random pain". The patient states that she has a history of congenital adrenal hyperplasia, and has not been taking her medication recently. She states that she is here today because she is tingling in the bilateral legs and feet, sharp pains in her back and behind her knees. She also notes that she was eating breakfast today she developed sudden onset of swelling in her feet. She states that she can no longer put her shoes on. She states that she has been 55 days sober from drugs. She states that she had swelling of this in her legs before but that was from standing for long periods of time she states that is not the case at this time. She states it also feels that there is a knot in her back. She denies any chest pain, shortness of breath, fevers or chills. She notes that she may have some sweats at times. Review of Systems A complete 10-point Review of Systems was discussed with the patient, with pertinent positives and negatives listed in the History of Present Illness. All remaining Review of Systems questions can be considered negative unless otherwise specified. Past Medical/Surgical History Medical Problems: (1) Abdominal pain, left upper quadrant (2) Acute thoracic myofascial strain (3) Asthma (4) Congenital adrenal hyperplasia (5) History of congenital adrenal hyperplasia (6) Hx of drug abuse (7) Left elbow tendonitis (8) Mid back pain (9) Pain, dental (10) Sprain of right foot (11) Work related injury (12) Wrist pain, left Surgical Problems: (1) Hx of carpal tunnel repair Social History Smoking Status: Current Every Day Smoker Drug Use: none Housing Status: lives with family Occupation Status: employed Current/Historical Medications Scheduled Buprenorphine Hcl (Subutex), 1 DOSE SL DAILY Cephalexin Monohydrate (Keflex), 500 MG PO TID Fludrocortisone Acetate (Florinef), 0.1 MG PO HS Prednisone (Prednisone), 5 MG PO HS Physical Exam Vital Signs Date Time Temp Pulse Resp B/P (MAP) Pulse Ox O2 Delivery O2 Flow Rate FiO2 09/09/17 19:00 85 16 102/76 98 09/09/17 18:16 93 22 119/78 97 Room Air 09/09/17 12:30 36.8 97 18 118/79 96 Room Air Physical Exam VITAL SIGNS - Vital signs and nursing notes were reviewed. Stable. GENERAL - 32-year-old female appearing her stated age who is in no acute distress. Communicates well with provider and answers questions appropriately. SKIN -there is minimal erythema of the bilateral lower extremities. There is also edema of the feet and ankle regions and distal shins. HEAD - NC/AT. EYES - Sclera anicteric. EARS - No deformities of external structures noted on gross examination bilaterally. NOSE - Midline and without cyanosis. No epistaxis or purulent drainage noted. MOUTH/OROPHARYNX - Without perioral cyanosis. NECK - Neck with FROM. No nuchal rigidity. LUNGS - Chest wall symmetric without accessory muscle use, intercostals retractions, or central cyanosis. Normal vesicular breath sounds CTA B/L. No wheezes, rales, or rhonchi appreciated. CARDIAC - RRR with S1/S2. No murmur, rubs, or gallops appreciated. EXTREMITIES - +5/5 strength noted in UE/LE bilaterally. There is edema noted to the bilateral lower extremity with erythema. NEUROLOGIC - Cranial nerves II through XII grossly intact. Sensory intact to light touch throughout. PSYCH - A&O, and cooperates fully with examiner. Pt is very pleasant and interacts well with examiner. Medical Decision & Procedures ER Provider Diagnostic Interpretation: (CHEST FOR PE) ANGIO WITH CT DOSE: 553.65 mGy.cm HISTORY: Chest pain dyspnea TECHNIQUE: Multiaxial CT images of the chest were performed following the intravenous administration of contrast to evaluate the pulmonary arteries. Maximal intensity projection images were also obtained. A dose lowering technique was utilized adhering to the principles of ALARA. COMPARISON STUDY: None. FINDINGS: The thoracic aorta is normal. The pulmonary vasculature enhances uniformly. No filling defects are appreciated. Bibasilar atelectatic change. The lungs otherwise appear clear. Moderate mediastinal adenopathy. Right para esophageal node image 85 measuring 1.3 cm. Para-aortic nodes measuring to 1.5 cm. Left paratracheal nodes measuring 1.6 cm. Subcarinal nodes measuring 2.5 cm. Left hilar nodes measuring to 1.3 cm. Right hilar nodes measuring to 1.5 cm. Small hiatal hernia. Splenomegaly measuring 11.5 cm. IMPRESSION: 1. Study is negative for pulmonary embolus. 2. Bibasilar atelectatic change. 3. Significant mediastinal and hilar adenopathy. 4. Splenic enlargement 5. Follow-up should be performed to exclude entities such as lymphoma/sarcoid. The above report was generated using voice recognition software. It may contain grammatical, syntax or spelling errors. Electronically signed by: Chencho Monroy M.D. 09/09/2017 5:01 PM Dictated Date/Time: 09/09/2017 4:[address] ABD/PELVIS IV CONTRAST ONLY CLINICAL HISTORY: Lower extremity edema, erythema COMPARISON STUDY: 07/01/2016 TECHNIQUE: Following the IV administration of 116 mL of [id number]-320, CT scan of the abdomen and pelvis was performed from the lung bases to the proximal femurs. Images are reviewed in the axial, sagittal, and coronal planes. IV contrast was administered without complication. A dose lowering technique was utilized adhering to the principles of ALARA. CT DOSE: FINDINGS: Lower chest: There are lingular right middle lobe and bilateral lower lobe atelectatic changes. A 9 mm pleural-based opacity within the right middle lobe while nonspecific likely reflects focal atelectasis. There is mild prominence the parasagittal soft tissues and subcarinal adenopathy is suspected. Liver: The contrast-enhanced liver is normal in size, contour, and attenuation. There is no intrahepatic biliary ductal dilatation. The hepatic veins and portal veins are patent. Gallbladder: Unremarkable. Spleen: Normal in size and attenuation. Pancreas: Unremarkable. Adrenal glands: There is persistent bilateral adrenal gland enlargement, left markedly greater than right. The left adrenal gland measures 81 x 28 mm. This finding has been present on studies dating back to 2011. This strongly favors a diagnosis of adrenal gland hyperplasia Kidneys: There is symmetric renal cortical enhancement. The kidneys are normal in size without hydronephrosis. Bowel: There are no transition zones to indicate bowel obstruction. There is no acute diverticulitis. The appendix appears normal. There is mild fecal retention. Peritoneum: There is no intraperitoneal free air or abdominal ascites. Vasculature: The abdominal aorta is normal in course and caliber. Adenopathy: Inguinal lymph nodes are the upper limits of normal in size. Pelvic viscera: The bladder, and pelvic viscera are unremarkable. Skeletal structures: No destructive osseous lesions are seen. IMPRESSION: 1. No evidence of bowel obstruction. No evidence of free air 2. Persistent significant bilateral adrenal gland enlargement left greater than right, likely representing adrenal hyperplasia 3. Suspected subcarinal lymphadenopathy 4. Inguinal lymph nodes at the upper limits of normal in size Electronically signed by: Dinh Powell M.D. 09/09/2017 5:07 PM Dictated Date/Time: 09/09/2017 4:59 PM L-SPINE MIN 4 VIEWS ROUTINE CLINICAL HISTORY: Low back pain COMPARISON: Lumbar spine radiographs December 29, 2012. FINDINGS: There is minimal leftward curvature of the lumbar spine. Vertebral body heights are maintained. There is no fracture or suspicious lesion. There is mild disc space narrowing at L5-S1. Bowel gas pattern is normal. There is a moderate amount stool within the colon. IMPRESSION: 1. No lumbar spine fracture or subluxation. 2. Mild disc space narrowing at L5-S1. 3. Slight leftward curvature of the lumbar spine. Electronically signed by: Gaston Swan M.D. 09/09/2017 1:48 PM Dictated Date/Time: 09/09/2017 1:47 PM ULTRASOUND VENOUS DOPPLER LWR EXT BILA CLINICAL HISTORY: Bilateral lower extremity edema COMPARISON STUDY: No previous studies for comparison. FINDINGS: Real-time and color flow Doppler imaging were performed. Flow was seen within the femoral, popliteal and calf veins with no intraluminal thrombus demonstrated. The saphenous vein is patent. There are mildly prominent bilateral inguinal lymph nodes. IMPRESSION: No evidence of lower extremity DVT. Electronically signed by: Dinh Powell M.D. 09/09/2017 3:12 PM Dictated Date/Time: 09/09/2017 3:11 PM Laboratory Results 09/09/17 13:24 Red Blood Count 4.81, Mean Corpuscular Volume 89.4, Mean Corpuscular Hemoglobin 28.9, Mean Corpuscular Hemoglobin Concent 32.3, Mean Platelet Volume 9.6, Neutrophils (%) (Auto) 51.4, Lymphocytes (%) (Auto) 31.7, Monocytes (%) (Auto) 12.2, Eosinophils (%) (Auto) 3.8, Basophils (%) (Auto) 0.7, Neutrophils # (Auto ) 3.13, Lymphocytes # (Auto) 1.93, Monocytes # (Auto) 0.74, Eosinophils # (Auto ) 0.23, Basophils # (Auto) 0.04 09/09/17 13:24 Test 09/09/17 13:24 White Blood Count 6.08 K/uL (4.8-10.8) Red Blood Count 4.81 M/uL (4.2-5.4) Hemoglobin 13.9 g/dL (12.0-16.0) Hematocrit 43.0 % (37-47) Mean Corpuscular Volume 89.4 fL (80-100) Mean Corpuscular Hemoglobin 28.9 pg (25-34) Mean Corpuscular Hemoglobin Concent 32.3 g/dl (32-36) Platelet Count 349 K/uL (130-400) Mean Platelet Volume 9.6 fL (7.4-10.4) Neutrophils (%) (Auto) 51.4 % Lymphocytes (%) (Auto) 31.7 % Monocytes (%) (Auto) 12.2 % Eosinophils (%) (Auto) 3.8 % Basophils (%) (Auto) 0.7 % Neutrophils # (Auto) 3.13 K/uL (1.4-6.5) Lymphocytes # (Auto) 1.93 K/uL (1.2-3.4) Monocytes # (Auto) 0.74 K/uL (0.11-0.59) Eosinophils # (Auto) 0.23 K/uL (0-0.5) Basophils # (Auto) 0.04 K/uL (0-0.2) RDW Standard Deviation 47.7 fL (36.4-46.3) RDW Coefficient of Variation 14.4 % (11.5-14.5) Immature Granulocyte % (Auto) 0.2 % Immature Granulocyte # (Auto) 0.01 K/uL (0.00-0.02) Anion Gap 7.0 mmol/L (3-11) Est Creatinine Clear Calc Drug Dose 99.4 ml/min Estimated GFR () 115.8 Estimated GFR (Non- 99.9 BUN/Creatinine Ratio 15.4 (10-20) Calcium Level 8.6 mg/dl (8.5-10.1) Total Bilirubin 0.4 mg/dl (0.2-1) Aspartate Amino Transf (AST/SGOT) U/L (15-37) Alanine Aminotransferase (ALT/SGPT) 35 U/L (12-78) Alkaline Phosphatase 86 U/L (45-117) Pro-B-Type Natriuretic Peptide 32 pg/ml (0-450) Total Protein 6.9 gm/dl (6.4-8.2) Albumin 3.6 gm/dl (3.4-5.0) Globulin 3.3 gm/dl (2.5-4.0) Albumin/Globulin Ratio 1.1 (0.9-2) Human Chorionic Gonadotropin, Qual NEG (NEG) Medications Administered Medications (Trade) Dose Ordered Sig/Saul Route Start Time Stop Time Status Last Admin Dose Admin Hydrocortisone Sodium Succinate (Solu-Cortef IV) 100 mg NOW STAT IV 09/09/17 18:35 09/09/17 18:36 DC 09/09/17 18:35 100 MG Medical Decision Patient was seen and evaluated as above in room D6. Review was performed of nursing notes and vital signs. After obtaining a thorough history and physical examination the above work up was performed. She presents today with lower back pain and bilateral lower extremity edema. She is nontoxic on exam. Vital signs are stable. CBC reveals no concerning leukocytosis or anemia. Metabolic panel reveals no concerning electrolyte abnormality, kidney function, LFT abnormality. BNP normal. HCG negative. Negative. I did obtain a CAT scan of the abdomen and pelvis as well as CTA as the patient There vital signs are stable. Imaging was obtained in the lower extremities. No DVT. There is significant edema of the lower extremities. This is more than expected for this patient.I did obtain a lumbar spine x-ray as well. Throughout her stay had more and more lower extremity edema. She was also seen by the attending physician. A bedside ultrasound was performed of the heart/limited echo. No abnormalities are seen. Good ejection fraction noted from the emergency department standpoint. These imaging studies do reveal a large amount of adenopathy. I did discuss this with the attending physician and subsequently the hospitalist. They came to evaluate the patient. It was identified that the patient could be managed in the outpatient setting. I was recommended to provide an IV dose of steroids here. As well as provide her with p.o. Keflex for home per the admission team. This was provided. She is to follow with the family doctor/material yard clerk. I did inform her upon possibilities of which can cause the lymph node enlargement. She is to return with worsening. The patient was educated upon management, had questions answered prior to discharge , and was discharged home in good condition. She was placed upon p.o. Keflex, noting that she said as a child penicillins caused a rash. I discussed with her benefit versus risk of initiating this medication and the decision was made to initiate. Case was discussed with the attending physician. In the evaluation and treatment of this patient the following differential diagnoses were entertained: UT, PE, DVT, adrenal insufficiency, adrenal crisis, mass pressing upon the IVC, urticarial reaction, among others. Impression Primary Impression: Lower extremity edema Additional Impressions: Hilar adenopathy Mediastinal adenopathy Departure Information Dispostion Home / Self-Care Condition GOOD Prescriptions Cephalexin Monohydrate (Keflex) 500 Mg Cap 500 MG PO TID for 10 Days, #30 CAP Prov: Duane Alvarado PA-C 09/09/17 Referrals No Doctor, Assigned (PCP) Patient Instructions My [facility] Additional Instructions You were seen in the emergency department for swelling in her lower extremities. At this time we have given you IV steroids. We will also begin with oral antibiotics in the case of a small infection. As we discussed you do have a penicillin allergy and these are in a similar family so if you develop any rash, hives or problems please stop and return. I do recommend follow-up with the family doctor for the enlarged lymph nodes in your chest as you may need to see a cotton factor/oncologist. Please continue your regular medications with the steroid. Please return with any new/concerning symptoms. If you are not able to follow-up within the next 7 days please call back here to help arrange appointment at [phone] and ask for watch case polisher. Thank you for your time. Problem Qualifiers
[2017-09-09 19:00] VITALS: BP 102/76; PULSE 85; O2SAT 98
--- NOTE | 2017-09-09 20:48 | Medical Consult ---
Consultation Date of Consultation: Sep 09, 2017. Attending Physician: Reason for Consultation: Request by ER physician to evaluate History of Present Illness Pt is 32 y/o F with PMH congenital adrenal hyperplasia, hx IV heroin use presented to ER with c/o LE edema. Pt reports this morning woke up and was eating breakfast and noticed swelling to bilateral feet and lower legs with associated tingling sensation. States thinks legs looked a little red. Denies injury/trauma to legs or open wounds. Hx LE edema approx 7 months ago which lasted several days and resolved and had negative LE dopplers at that time. Reports hx low back pain, having some pain to lower back today also and doesn't feel worse than normal. Denies recent injury or trauma. Denies loss control of bowel/bladder, saddle paresthesias. Pt admits hasn't used her steroids for approx 6 months. Reports stopped using IV drugs 2 months ago and when would use , would inject to bilateral arms. Denies fever/chills, diaphoresis, N/V/D/C, CASE , dizziness, vision changes, neck pain, CP, SOB, orthopnea, palpitations, cough , sore throat, choking, otalgia, rhinorrhea, abdominal pain, extremity weakness , rashes, urinary symptoms. Past Medical/Surgical History Medical Problems: (1) Abdominal pain, left upper quadrant Status: Resolved (2) Acute thoracic myofascial strain Status: Resolved (3) Asthma Status: Chronic (4) Congenital adrenal hyperplasia Status: Chronic (5) History of congenital adrenal hyperplasia Status: Chronic (6) Hx of drug abuse Status: Chronic (7) Left elbow tendonitis Status: Resolved (8) Mid back pain Status: Resolved (9) Pain, dental Status: Resolved (10) Sprain of right foot Status: Resolved (11) Work related injury Status: Resolved (12) Wrist pain, left Status: Resolved Surgical Problems: (1) Hx of carpal tunnel repair Status: Resolved Family History FH: congenital adrenal hyperplasia - brother, grandfather Social History Smoking Status: Current Every Day Smoker Smokeless Tobacco Use: No Alcohol Use: occasionally Drug Use: none (denies current use, reports been clean for past 2 months) Housing Status: lives with family Occupation Status: employed Allergies Coded Allergies: Silver (Unverified Allergy, Severe, RASH, 09/09/17) Penicillins (Verified Allergy, Unknown, 09/09/17) Current Inpatient Medications Current Inpatient Medications Medications (Trade) Dose Ordered Sig/Saul Route Start Time Stop Time Status Last Admin Dose Admin Ioversol (Optiray 320) 116 ml UD PRN IV 09/09/17 17:15 09/13/17 17:14 Review of Systems See HPI for pertinent positives & negatives. All other systems reviewed and were otherwise negative Physical Exam Date Time Temp Pulse Resp B/P (MAP) Pulse Ox O2 Delivery O2 Flow Rate FiO2 09/09/17 18:16 93 22 119/78 97 Room Air 09/09/17 12:30 36.8 97 18 118/79 96 Room Air General Appearance: no apparent distress, + pertinent finding (appears older than stated age) Head: normocephalic, atraumatic Eyes: normal inspection ENT: hearing grossly normal Respiratory/Chest: lungs clear, normal breath sounds, no respiratory distress Cardiovascular: regular rate, rhythm, normal peripheral pulses Abdomen/GI: normal bowel sounds, non tender, soft Extremities/Musculoskelatal: normal capillary refill, normal range of motion, + pedal edema (bilateral, no significant erythema or red streaking or open wounds noted to lower extremities. ROM intact, sensation to light touch intact) Neurologic/Psych: alert, normal mood/affect, oriented x 3 Skin: normal color, warm/dry Laboratory Results Last 24 Hours Test 09/09/17 13:24 White Blood Count 6.08 K/uL Red Blood Count 4.81 M/uL Hemoglobin 13.9 g/dL Hematocrit 43.0 % Mean Corpuscular Volume 89.4 fL Mean Corpuscular Hemoglobin 28.9 pg Mean Corpuscular Hemoglobin Concent 32.3 g/dl Platelet Count 349 K/uL Mean Platelet Volume 9.6 fL Neutrophils (%) (Auto) 51.4 % Lymphocytes (%) (Auto) 31.7 % Monocytes (%) (Auto) 12.2 % Eosinophils (%) (Auto) 3.8 % Basophils (%) (Auto) 0.7 % Neutrophils # (Auto) 3.13 K/uL Lymphocytes # (Auto) 1.93 K/uL Monocytes # (Auto) 0.74 K/uL Eosinophils # (Auto) 0.23 K/uL Basophils # (Auto) 0.04 K/uL RDW Standard Deviation 47.7 fL RDW Coefficient of Variation 14.4 % Immature Granulocyte % (Auto) 0.2 % Immature Granulocyte # (Auto) 0.01 K/uL Sodium Level 137 mmol/L Potassium Level mmol/L Chloride Level 104 mmol/L Carbon Dioxide Level 26 mmol/L Anion Gap 7.0 mmol/L Blood Urea Nitrogen 12 mg/dl Creatinine 0.78 mg/dl Est Creatinine Clear Calc Drug Dose 99.4 ml/min Estimated GFR () 115.8 Estimated GFR (Non- 99.9 BUN/Creatinine Ratio 15.4 Random Glucose 95 mg/dl Calcium Level 8.6 mg/dl Total Bilirubin 0.4 mg/dl Aspartate Amino Transf (AST/SGOT) U/L Alanine Aminotransferase (ALT/SGPT) 35 U/L Alkaline Phosphatase 86 U/L Pro-B-Type Natriuretic Peptide 32 pg/ml Total Protein 6.9 gm/dl Albumin 3.6 gm/dl Globulin 3.3 gm/dl Albumin/Globulin Ratio 1.1 Human Chorionic Gonadotropin, Qual NEG Assessment & Plan LE EDEMA Pt with B/L LE edema today. Negative U/S LE for DVT. Recommend elevation LE. Could do trial oral antibiotics. To return if any worsening. MEDIASTINAL/HILAR ADENOPATHY Vitals stable, labs WNL. No SOB or CP. -recommend pt f/u with PCP, may need further f/u with heme/onc out patient. CT CHEST:IMPRESSION: 1. Study is negative for pulmonary embolus. 2. Bibasilar atelectatic change. 3. Significant mediastinal and hilar adenopathy. 4. Splenic enlargement 5. Follow-up should be performed to exclude entities such as lymphoma/sarcoid. CT ABD/PELVIS: IMPRESSION: 1. No evidence of bowel obstruction. No evidence of free air 2. Persistent significant bilateral adrenal gland enlargement left greater than right, likely representing adrenal hyperplasia 3. Suspected subcarinal lymphadenopathy 4. Inguinal lymph nodes at the upper limits of normal in size CHRONIC BACK PAIN: No bowel/bladder incontinence or saddle paresthesias CT L SPINE: IMPRESSION: 1. No lumbar spine fracture or subluxation. 2. Mild disc space narrowing at L5-S1. 3. Slight leftward curvature of the lumbar spine. CONGENITAL ADRENAL HYPERPLASIA Pt to resume her prednisone, Florinef as directed. F/U with citrus peeler Disposition: Pt was seen with Dr Becerril. See addendum Feel pt can do out patient trial with close f/u with PCP and [facility] Follows with Dr Rosas for routine care Patient is a 32 yr female with PMH of IV drug use, congenial adrenal hyperplasia , Medication non compliance and other problems presents with B/L LE swelling. Venous doppler was negative of DVT. Patient had also reported similar B/L LE swelling which spontaneously resolved as per patient. She reports some LE discomfort and tingling sensation. She was noted to have significant mediastinal and hilar adenopathy and splenomegaly on CT scan incidentally. Patient denied any chest pain, SOB, cough, fever, chills, abd pain. Patient admitted that she has not been taking his Florinef and prednisone since at least 6 months. Physical Exam: B/L LE swelling CTA S1, S2 B/L LE edema CAH: Follows with citrus peeler in [place] Lymphadenopathy/Splenomegaly Non compliance Patient received Hydrocortisone in ED Advised to resume Florinef, prednisone Was DCed home on empiric oral ABx Advised close follow up with PCP, Endocrinology and Heme oncology as outpatient Also advised to consider Infectious disease as outpatient Advised that repeat CT is needed to assess resolution and possible need for biopsy Seek immediate medical attention if your symptoms reoccur or worsen I personally reviewed the record. Patient is interviewed and examined at bedside. Patient's care is coordinated with Yamilet Garcia PA-C. Please refer to the documentation above for details of patient's presentation and for discussion of other issues. Additional Copies To Cordell Rosas D.O.
== END 2017-09-09 19:00 | disposition home or self-care (01) ==
LOC: C.EDB 12:15 → C.EDD 19:00
DX: R60.0 Localized edema (principal); R59.1 Generalized enlarged lymph nodes; E25.0 Congenital adrenogenital disorders associated with enzyme deficiency; J45.909 Unspecified asthma, uncomplicated; F17.200 Nicotine dependence, unspecified, uncomplicated

== ENCOUNTER 2018-01-18 10:55 | Emergency (ER) | payer OTHER ==
[~2018-01-18] VITALS: Ht 160 cm; Wt 75.4 kg
[~2018-01-18 10:55] MED LIST changes: +BUPR8SUB19 SL
[2018-01-18 10:57] VITALS: TEMP 36.9; Ht 160 cm; Wt 75.4 kg
[2018-01-18 12:18] VITALS: BP 125/90; PULSE 102; O2SAT 97
--- NOTE | 2018-01-18 17:15 | EMERGENCY ROOM VISIT NOTE ---
History First contact with patient: 11:00 Chief Complaint: WRIST PAIN Stated Complaint: WRIST PAIN, NUMBNESS History of Present Illness The patient is a 32 year old female who presents to the Emergency Room with complaints of numbness and tingling of her fingers, as well as pain extending from her hand, through the forearm and into the elbow region. 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 He reports that he is barely high enough to operate the arm to slice the potatoes. The patient reports that doing so significantly worsens his pain. He denies any other trauma to the right upper extremity. He is right-hand dominant. The patient is status post bilateral carpal tunnel release.. He denies any neck pain, and rates his discomfort a 3 out of 10. The patient is right-hand dominant. Review of Systems 10 system review was performed and was negative except for pertinent positives and negatives as indicated in history of present illness Past Medical/Surgical History Medical Problems: (1) Abdominal pain, left upper quadrant (2) Acute thoracic myofascial strain (3) Asthma (4) Congenital adrenal hyperplasia (5) History of congenital adrenal hyperplasia (6) Hx of drug abuse (7) Left elbow tendonitis (8) Mid back pain (9) Pain, dental (10) Sprain of right foot (11) Work related injury (12) Wrist pain, left Surgical Problems: (1) Hx of carpal tunnel repair Family History Unremarkable Social History Smoking Status: Current Every Day Smoker Drug Use: none Housing Status: lives with family Occupation Status: employed Current/Historical Medications Scheduled Fludrocortisone Acetate (Florinef), 0.1 MG PO HS Prednisone (Prednisone), 5 MG PO HS Physical Exam Vital Signs Date Time Temp Pulse Resp B/P (MAP) Pulse Ox O2 Delivery O2 Flow Rate FiO2 01/18/18 12:18 102 20 125/90 97 01/18/18 10:57 36.9 75 17 120/82 95 Room Air Physical Exam CONSTITUTIONAL: Healthy and well nourished. Alert and oriented X 3 with positive affect. HEENT: Normocephalic, atraumatic. Pupils equal, round and reactive. NECK: Full active range of motion without discomfort. MUSCULOSKELETAL: Examination shows generalized tenderness to palpation of all the muscles through the forearm. He is also tender over the lateral and medial epicondyles, lateral worse than medial. Resisted extension and flexion of the wrist worsens his discomfort over the epicondyles. He has no worsening pain with pronation and supination. He has generalized tenderness to palpation through the muscles of the forearm and volar wrist region. Capillary refill of the fingers is less than 2 seconds. He is able to individually flex and extend all fingers. INTEGUMENTARY: No rash or other significant dermatologic conditions noted. NEUROLOGIC: Right hand and fingers are sensory intact. No thenar or interosseous flattening/atrophy noted. Medical Decision & Procedures ED Course Patient history and physical exam were performed. Nurse's notes were reviewed. Vital signs were reviewed and were normal. The patient was advised that his symptoms are likely secondary to his activities at work. The patient was advised that his condition is called overuse syndrome. A wrist brace was applied. She was encouraged to intermittently apply ice to the wrist, forearm and elbow region. I did recommend orthopedic follow-up if needed for further management of symptoms are not improving within the next week, which is unlikely given his job duties. She was encouraged alternate ibuprofen and Tylenol as needed for pain. The patient voiced understanding of all discharge instructions, was happy with plan of care, and rated her discomfort a 3 out of 10 at the time of discharge. Medical Decision Impression Primary Impression: Right arm tendonitis Additional Impression: Right upper extremity overuse syndrome Departure Information Dispostion Home / Self-Care Condition GOOD Referrals Ike Cage D.O. Cordell Rosas D.O. (PCP) No Doctor, Assigned Forms HOME CARE DOCUMENTATION FORM, IMPORTANT VISIT INFORMATION Patient Instructions My [facility] Additional Instructions Continue to intermittently apply ice to the arm. Wear wrist brace when working. Ibuprofen 800 mg and/or Tylenol 1000 mg every 8 hours. You may also alternate these medications for more effective pain relief: Ibuprofen --4 HRS--> Tylenol --4 HRS--> ibuprofen --4 HRS--> Tylenol .... Follow-up with [facility] (Dr. Cage) for further management -call for appointment. Problem Qualifiers
== END 2018-01-18 12:14 | disposition home or self-care (01) ==
LOC: C.EDB 10:56 → C.EDD 12:14
DX: M77.8 Other enthesopathies, not elsewhere classified (principal); M70.90 Unspecified soft tissue disorder related to use, overuse and pressure of unspecified site; J45.909 Unspecified asthma, uncomplicated; E25.0 Congenital adrenogenital disorders associated with enzyme deficiency; F17.210 Nicotine dependence, cigarettes, uncomplicated; Z79.899 Other long term (current) drug therapy

== ENCOUNTER 2024-08-30 15:58 | Observation (INO) ==
[2024-08-30 17:04] LABS: Basophils # (auto) 0.04 K/uL (0.00-0.20); Basophils % (auto) 0.4 %; Eosinophils # (auto) 0.14 K/uL (0.00-0.50); Eosinophils % (auto) 1.4 %; Hematocrit (blood only) 46.7 % (37.0-47.0); Hemoglobin 15.8 g/dl (12.0-16.0); Immature Granulocytes # (auto) 0.04 K/uL (0.01-0.20); Immature Granulocytes % (auto) 0.4 %; Lymphocytes # (auto) 1.17 K/uL (1.20-3.40); Lymphocytes % (auto) 11.5 %; Mean Corpuscular Hemoglobin 29.9 pg (25.0-34.0); Mean Corpuscular Hgb Conc 33.8 g/dL (32.0-36.0); Mean Corpuscular Volume 88.3 fL (80.0-100.0); Mean Platelet Volume 10.1 fL (9.4-12.4); Monocytes # (auto) 0.74 K/uL (0.11-0.59); Monocytes % (auto) 7.3 %; Neutrophils # (auto) 8.04 K/uL (1.40-6.50); Platelet Count 341 K/uL (130-400); RDW Coefficient of Variation 12.8 % (11.5-14.5); RDW Standard Deviation 41.2 fL (36.4-46.3); Red Blood Count 5.29 M/uL (4.20-5.40); White Blood Count 10.17 K/ul (4.8-10.8)
--- NOTE | 2024-08-30 17:04 | Emergency Department Note ---
Impression & Plan Nausea vomiting and diarrhea, High serum lactate, Elevated procalcitonin, Congenital adrenal hyperplasia ED Provider Note CHIEF COMPLAINT: Flu like symptoms HISTORY OF PRESENTING ILLNESS: This 39 year old female patient presents to the ER for evaluation of fevers, nausea, vomiting, and diarrhea. Also having some chills and body aches. Fever 102 F max. Symptoms started abruptly last night. Not able to keep much fluid down and not able to eat. Having a headache as well. Not really having abdominal pain, just the discomfort from the vomiting and diarrhea. Denies chest pain or SOB. Took Tylenol yesterday without improvement of her symptoms. She is not on any blood thinners. She has a history of congenital adrenal hyperplasia and is on steroids on a regular basis. However, she has been unable to keep down her oral steroids. She is supposed to take a stress dose injection if she can't keep her medications down. However, she did not have any of the stress dose of steroids at home because of problems with availability at the pharmacy and problems with insurance. She follows with endocrinology through [facility]. Her stress dose of steroids is Decadron 4 mg IM per patient and [facility] records. REVIEW OF SYSTEMS: See HPI for pertinent positives and pertinent negatives. ALLERGIES: Silver, PCN MEDICATIONS: See below PAST MEDICAL HISTORY: See below PHYSICAL EXAM: Vital Signs: Vitals are noted on the nurse's note and reviewed by myself. GENERAL: Non toxic in appearance and in no acute distress. SKIN: Capillary reflex less than 2 seconds. HEAD: Normocephalic, atraumatic. EARS: Bilateral external auditory canals clear without tragus tenderness. Bilateral tympanic membranes pearly salgado without erythema or effusion. No mastoid tenderness bilaterally. EYES: Pupils equal round and reactive to light and accommodation. Conjunctivae without injection, sclerae without icterus. Extraocular movements intact. NOSE: Patent, turbinates inflamed with no discharge. No sinus tenderness. MOUTH: Mucous membranes moist. Airway patent, uvula midline. Pharynx is not erythematous and not edematous without exudate. Pharynx without postnasal drip. No evidence for peritonsillar abscess. NECK: Supple without nuchal rigidity. No lymphadenopathy. HEART: Regular rate and rhythm without murmurs gallops or rubs. LUNGS: Clear to auscultation bilaterally without wheezes, rales or rhonchi. No accessory muscle use or retractions. ABDOMEN: Positive bowel sounds x 4. Normal tympanic percussion. Soft, nontender to palpation. No masses or hepatosplenomegaly. No guarding, rigidity, or rebound tenderness. No CVA tenderness. No focal RLQ or LLQ tenderness. NEURO: Patient was alert and oriented. DIFFERENTIAL DIAGNOSIS: Differential diagnosis includes viral gastroenteritis, bacterial gastroenteritis, food poisoning, viral syndrome, RSV, Influenza, COVID, strep throat, pharyngitis/tonsillitis, mononucleosis, retropharyngeal abscess, peritonsillar abscess, otitis media, otitis externa, sinusitis, bronchitis, pneumonia, as well as other pathologies. ED COURSE AND MEDICAL DECISION MAKING: MEDICATIONS GIVEN: Decadron 4 mg IV, Zofran 4 mg IV, Tylenol 1000 mg IV, Toradol 10 mg IV. Reglan 10 mg IV. Pepcid 20 mg IV. A total of 1750 mL normal saline solution bolus. Rocephin 2 g IV. MONITOR: Continuous manager monitoring: Order was placed for continuous manager monitoring. Patient was placed on the manager monitoring and continuous pulse ox. Patient was noted to be in normal sinus rhythm at an initial rate of 90 bpm per my interpretation. INTERPRETATION OF LABS: I interpreted the labs with full lab results as below in the lab section of this note. Laboratory results pertinent to the emergent complaint are discussed in the MDM section below. The patient was advised to follow up with their PCP and/or specialist(s) for further outpatient monitoring and management of any abnormal results. INTERPRETATION OF IMAGING: Imaging studies were interpreted by myself and read by radiology as per the imaging section of this note. The patient was advised to follow up with their PCP and/or specialist(s) for further outpatient management of any non-emergent abnormal findings. Chest x-ray negative for pneumonia or other acute cardiopulmonary etiology. CT scan of the abdomen pelvis with IV contrast shows a fat density area involving the lateral aspect of the enlarged left adrenal gland has increased in the previous examination and now measures 1.7 x 1.4 cm where it was 1.1 x 0.8 cm previously. Otherwise, the previously described bilateral adrenal hypertrophic changes (L>R) are stable in appearance. No evidence for focal high-grade bowel obstruction. Fluid and gas distended small bowel throughout the abdomen and pelvis without dilation is nonspecific in appearance but suggests a diffuse enteritis. No obvious asymmetric bowel mucosal abnormality. Minimal stool burden. Questionable prominent fluid in the descending colon raises a suspicion for potential coexisting diarrheal disease. No for diverticulitis. No free air or pneumoperitoneum. EXTERNAL RECORDS REVIEWED: I reviewed the patient's records from [facility] endocrinology from 11/24/2023. CHRONIC MEDICAL/SOCIAL CONDITIONS AFFECTING CARE: Congenital adrenal hyperplasia CONSULTATIONS: On-call hospitalist MDM SUMMARY: The patient was seen during a time of extreme volume and extreme acuity. Nursing triage protocols were initiated with IV lock, labs, and/or imaging studies conducted by protocol in the triage area. The patient was initially evaluated in a triage room and then re-evaluated once they were taken back to an exam room. The patient started with nausea, vomiting, diarrhea last evening. She then had a fever of 102 F maximum today. She denies any significant abdominal pain. Denies any cough, chest pain, or shortness of breath. The patient has a history of congenital adrenal hyperplasia and has been taking her baseline dose of steroids, but ran out of her stress dose of steroids. The patient was mildly tachycardic at 112 bpm in triage, but her heart rate was normal in the 80s and low 90s at the time of my examination. She was afebrile. She was well-appearing upon initial exam. Laboratory studies at the time of my examination showed a normal white blood cell count. Therefore, lactate and procalcitonin were not ordered initially. I reviewed the outpatient [facility] endocrinology records that showed that she is to take methylprednisolone 2 mg orally 2 tablets in the morning and 1 tablet in the evening with a prescription for Decadron 4 mg IM to be used for an adrenal flare. The patient was given Decadron 4 mg IV in the ER since she had not taken her stress dose at home. The patient was medicated with IV Tylenol, IV Toradol, IV Zofran, IV Reglan, and IV Pepcid for her symptoms. Initially the patient was given 1 L normal saline solution bolus. The patient's initial laboratory studies showed a normal white blood cell count at 10.17, hemoglobin 15.8, and platelet count 341. Sodium was slightly low at 133 and glucose 105, but CMP otherwise normal. Magnesium normal. Serum hCG negative. Urinalysis with trace ketones, but otherwise negative. Respiratory BioFire negative. Upon recheck of the patient to discuss the laboratory studies, the patient looked a little sweatier and her blood pressure had dropped to 95/67. Repeat temp revealed a temperature of 99.5 F. At this point, lactate and procalcitonin were drawn and the patient was given an additional 500 mL normal saline solution bolus. The patient's lactate came back elevated at 2.5 and her procalcitonin came back elevated at 0.57. The patient was given another 250 mL normal saline solution bolus for a total of 1750 mL based on her ideal body weight. Blood cultures were also drawn and the patient was given Rocephin 2 g IV. The patient's repeat lactate level was still elevated at 2.4. Additional imaging studies were also obtained at this time given her worsening condition. Chest x-ray negative for pneumonia or other acute cardiopulmonary etiology. CT scan of the abdomen pelvis with IV contrast shows a fat density area involving the lateral aspect of the enlarged left adrenal gland has increased in the previous examination and now measures 1.7 x 1.4 cm where it was 1.1 x 0.8 cm previously. Otherwise, the previously described bilateral adrenal hypertrophic changes (L>R) are stable in appearance. No evidence for focal high-grade bowel obstruction. Fluid and gas distended small bowel throughout the abdomen and pelvis without dilation is nonspecific in appearance but suggests a diffuse enteritis. No obvious asymmetric bowel mucosal abnormality. Minimal stool burden. Questionable prominent fluid in the descending colon raises a suspicion for potential coexisting diarrheal disease. No for diverticulitis. No free air or pneumoperitoneum. Unfortunately, the patient was unable to give a stool sample while in the ER. I suspect the patient's symptoms are secondary to a diarrheal illness or possible gastroenteritis that is exacerbated by her congenital adrenal hyperplasia and inability to keep down her oral steroids from the vomiting. Based on the patient's appearance, vital signs, and continued abnormal lactate level despite IV fluids, I feel the patient requires admission for further evaluation and treatment. I spoke with the on-call hospitalist who agreed to admit the patient for further inpatient management. Please refer to their dictation for further details. The patient's care was transferred in stable condition. DIAGNOSIS: Nausea, vomiting, and diarrhea Elevated lactate and procalcitonin Congenital adrenal hyperplasia Past Med/Surg History Problem List (Updated 08/30/24 @ 23:04 by Richa Leon PA-C) Congenital adrenal hyperplasia (Acute) Elevated procalcitonin (Acute) High serum lactate (Acute) Nausea vomiting and diarrhea (Acute) History of congenital adrenal hyperplasia (Chronic) Hx of drug abuse (Chronic) Social History Smoking Status: Current every day smoker Tobacco Type: Cigarettes Preferred Language: Cymro Feels Safe at Home: Yes Allergies Allergies Allergy/AdvReac Type Severity Reaction Status Date / Time silver Allergy Severe RASH Verified 08/30/24 19:19 Penicillins Allergy Unknown HAPPENED A Verified 08/30/24 19:19 LONG TIME AGO. Home Meds Home Medications Medication Instructions Recorded Confirmed Medical Marijuana 1 dose inhalation DIRECTED PRN 09/13/21 08/30/24 NEEDED acetaminophen 500 mg tablet 500 - 1,000 mg PO DIRECTED PRN 08/30/24 08/30/24 (Tylenol Extra Strength) Pain albuterol sulfate 90 mcg/actuation 2 puff inhalation DIRECTED PRN 08/30/24 08/30/24 aerosol inhaler Shortness Of Breath Or Wheezing baclofen 10 mg tablet 10 mg PO BID PRN MUSCLE SPASMS 08/30/24 08/30/24 diclofenac sodium 75 mg 75 mg PO DAILY 08/30/24 08/30/24 tablet,delayed release fludrocortisone 0.1 mg tablet 0.1 mg PO DAILY 08/30/24 08/30/24 methylprednisolone 2 mg tablet 2 - 4 mg PO BID 08/30/24 08/30/24 spironolactone 50 mg tablet 50 mg PO DAILY 08/30/24 08/30/24 varenicline tartrate 1 mg tablet 1 mg PO DAILY 08/30/24 08/30/24 (Chantix) Results & Data (ED) Vital Signs Vital Signs - 24 hr 08/30/24 16:03 08/30/24 18:04 08/30/24 18:08 Temperature 37.0 C Temperature Source Oral Pulse Rate 112 H Pulse Rate [Apical] 87 Pulse Rate from SpO2 Sensor Pulse Rhythm Regular Pulse Rhythm [Apical] Pulse Strength Normal Pulse Strength [Apical] Respiratory Rate 20 16 Respiratory Effort / Characteristics Non-Labored Spontaneous Non-Labored Spontaneous Respiratory Depth Normal Normal Respiratory Pattern Regular Regular Blood Pressure 103/61 95/67 L Blood Pressure [Right Arm] 95/67 L Blood Pressure Mean 75 75 Blood Pressure Mean [Right Arm] 76 Blood Pressure Position [Right Arm] Pulse Oximetry 97 95 Oxygen Delivery Method Room Air Room Air Sepsis Recent Fever Within 48 Hours No Sepsis New/Unexplained Change in Mental Status N/A Sepsis Action Taken by Nursing No Action Required 08/30/24 18:26 08/30/24 18:33 08/30/24 19:05 Temperature 37.5 C Temperature Source Oral Pulse Rate 97 H 90 Pulse Rate [Apical] Pulse Rate from SpO2 Sensor 90 Pulse Rhythm Pulse Rhythm [Apical] Pulse Strength Pulse Strength [Apical] Respiratory Rate 29 H Respiratory Effort / Characteristics Respiratory Depth Respiratory Pattern Blood Pressure Blood Pressure [Right Arm] Blood Pressure Mean Blood Pressure Mean [Right Arm] Blood Pressure Position [Right Arm] Pulse Oximetry 95 Oxygen Delivery Method Room Air Sepsis Recent Fever Within 48 Hours Sepsis New/Unexplained Change in Mental Status Sepsis Action Taken by Nursing 08/30/24 19:05 08/30/24 19:30 08/30/24 20:01 Temperature Temperature Source Pulse Rate 86 85 Pulse Rate [Apical] Pulse Rate from SpO2 Sensor Pulse Rhythm Pulse Rhythm [Apical] Pulse Strength Pulse Strength [Apical] Respiratory Rate 30 H 26 H Respiratory Effort / Characteristics Respiratory Depth Respiratory Pattern Blood Pressure 82/53 L 89/62 L 108/53 L Blood Pressure [Right Arm] Blood Pressure Mean 55 64 70 Blood Pressure Mean [Right Arm] Blood Pressure Position [Right Arm] Pulse Oximetry 96 97 Oxygen Delivery Method Room Air Room Air Sepsis Recent Fever Within 48 Hours Sepsis New/Unexplained Change in Mental Status Sepsis Action Taken by Nursing 08/30/24 20:51 08/30/24 21:00 08/30/24 21:30 Temperature Temperature Source Pulse Rate 83 86 82 Pulse Rate [Apical] Pulse Rate from SpO2 Sensor 83 84 Pulse Rhythm Pulse Rhythm [Apical] Pulse Strength Pulse Strength [Apical] Respiratory Rate 17 22 21 Respiratory Effort / Characteristics Respiratory Depth Respiratory Pattern Blood Pressure 83/63 L 104/65 95/62 L Blood Pressure [Right Arm] Blood Pressure Mean 69 73 73 Blood Pressure Mean [Right Arm] Blood Pressure Position [Right Arm] Pulse Oximetry 97 94 96 Oxygen Delivery Method Room Air Room Air Room Air Sepsis Recent Fever Within 48 Hours Sepsis New/Unexplained Change in Mental Status Sepsis Action Taken by Nursing 08/30/24 22:00 08/30/24 22:23 08/30/24 22:34 Temperature Temperature Source Pulse Rate 89 87 90 Pulse Rate [Apical] Pulse Rate from SpO2 Sensor Pulse Rhythm Pulse Rhythm [Apical] Pulse Strength Pulse Strength [Apical] Respiratory Rate 24 20 Respiratory Effort / Characteristics Respiratory Depth Respiratory Pattern Blood Pressure 85/57 L 96/59 L Blood Pressure [Right Arm] Blood Pressure Mean 68 62 Blood Pressure Mean [Right Arm] Blood Pressure Position [Right Arm] Pulse Oximetry 96 97 Oxygen Delivery Method Room Air Room Air Sepsis Recent Fever Within 48 Hours Sepsis New/Unexplained Change in Mental Status Sepsis Action Taken by Nursing 08/30/24 23:35 08/31/24 01:00 Temperature Temperature Source Pulse Rate Pulse Rate [Apical] 80 100 H Pulse Rate from SpO2 Sensor Pulse Rhythm Pulse Rhythm [Apical] Regular Regular Pulse Strength Pulse Strength [Apical] Normal Normal Respiratory Rate 17 18 Respiratory Effort / Characteristics Non-Labored Spontaneous Respiratory Depth Normal Normal Respiratory Pattern Regular Blood Pressure Blood Pressure [Right Arm] 90/52 L 92/63 L Blood Pressure Mean Blood Pressure Mean [Right Arm] 64 72 Blood Pressure Position [Right Arm] Lying Pulse Oximetry 94 96 Oxygen Delivery Method Room Air Room Air Sepsis Recent Fever Within 48 Hours Sepsis New/Unexplained Change in Mental Status Sepsis Action Taken by Nursing Laboratory Data 08/30/24 16:40 08/30/24 16:40 Lab Results 08/30/24 08/30/24 08/30/24 Range/Units 16:04 16:40 18:05 WBC 10.17 (4.8-10.8) K/ul RBC 5.29 (4.20-5.40) M/uL Hgb 15.8 (12.0-16.0) g/dl Hct 46.7 (37.0-47.0) % MCV 88.3 (80.0-100.0) fL MCH 29.9 (25.0-34.0) pg MCHC 33.8 (32.0-36.0) g/dL RDW Std Deviation 41.2 (36.4-46.3) fL RDW Coeff of Sonya 12.8 (11.5-14.5) % Plt Count 341 (130-400) K/uL MPV 10.1 (9.4-12.4) fL Immature Gran % (Auto) 0.4 % Neut % (Auto) 79.0 % Lymph % (Auto) 11.5 % [place] % (Auto) 7.3 % Eos % (Auto) 1.4 % Baso % (Auto) 0.4 % Neut # (Auto) 8.04 H (1.40-6.50) K/uL Lymph # (Auto) 1.17 L (1.20-3.40) K/uL [place] # (Auto) 0.74 H (0.11-0.59) K/uL Eos # (Auto) 0.14 (0.00-0.50) K/uL Baso # (Auto) 0.04 (0.00-0.20) K/uL Immature Gran # (Auto) 0.04 (0.01-0.20) K/uL Sodium 133 L (136-145) mmol/L Potassium 3.9 (3.5-5.1) mmol/L Chloride 104 (98-107) mmol/L Carbon Dioxide 21 (21-32) mmol/L Anion Gap 8 (3-11) BUN 12 (6-23) mg/dl Creatinine 0.93 (0.6-1.2) mg/dl Est Cr Clr Drug Dosing 76.9 ml/min eGFR 79.68 BUN/Creatinine Ratio 12.9 (10-20) Glucose 105 H (70-99(Fasting)) mg/dl Lactate (0.4-2.0) mmol/L Calcium 8.7 (8.6-10.3) mg/dl Magnesium 1.8 (1.7-2.4) mg/dl Total Bilirubin 0.7 (0.2-1.0) mg/dl AST 19 (13-39) U/L ALT 20 (7-52) U/L Alkaline Phosphatase 81 (34-104) U/L Total Protein 7.3 (6.0-8.3) gm/dl Albumin 4.7 (3.4-5.0) gm/dl Globulin 2.6 (2.5-4.0) gm/dl Albumin/Globulin Ratio 1.8 (0.9-2) Procalcitonin 0.57 H (0-0.5) ng/ml HCG, Qual Negative (Negative) Urine Color Urine Appearance (Clear) Urine pH (4.5-7.5) Ur Specific [place] (1.000-1.030) Urine Protein (Negative) Urine Glucose (UA) (Negative) Urine Ketones (Negative) Urine Blood (Negative) Urine Nitrite (Negative) Urine Bilirubin (Negative) Urine Urobilinogen (Negative) Ur Leukocyte Esterase (Negative) Adenovirus (PCR) Not Detected (NotDetected) B. pertussis DNA (PCR) Not Detected (NotDetected) B.parapertussis DNA PCR Not Detected (NotDetected) C. pneumoniae DNA (PCR) Not Detected (NotDetected) Coronavirus OC43 (PCR) Not Detected (NotDetected) Coronavirus HKU1 (PCR) Not Detected (NotDetected) Coronavirus 229E (PCR) Not Detected (NotDetected) SARS-CoV-2 (PCR) Not Detected (NotDetected) Coronavirus NL63 (PCR) Not Detected (NotDetected) Human Metapneumovir PCR Not Detected (NotDetected) Influenza Type A (PCR) Not Detected (NotDetected) Influenza Type B (PCR) Not Detected (NotDetected) M. pneumoniae (PCR) Not Detected (NotDetected) Parainfluenza 1 (PCR) Not Detected (NotDetected) Parainfluenza 2 (PCR) Not Detected (NotDetected) Parainfluenza 3 (PCR) Not Detected (NotDetected) Parainfluenza 4 (PCR) Not Detected (NotDetected) RSV (PCR) Not Detected (NotDetected) Entero/Rhino (PCR) Not Detected (NotDetected) 08/30/24 08/30/24 08/30/24 Range/Units 19:03 19:12 20:57 WBC (4.8-10.8) K/ul RBC (4.20-5.40) M/uL Hgb (12.0-16.0) g/dl Hct (37.0-47.0) % MCV (80.0-100.0) fL MCH (25.0-34.0) pg MCHC (32.0-36.0) g/dL RDW Std Deviation (36.4-46.3) fL RDW Coeff of Sonya (11.5-14.5) % Plt Count (130-400) K/uL MPV (9.4-12.4) fL Immature Gran % (Auto) % Neut % (Auto) % Lymph % (Auto) % [place] % (Auto) % Eos % (Auto) % Baso % (Auto) % Neut # (Auto) (1.40-6.50) K/uL Lymph # (Auto) (1.20-3.40) K/uL [place] # (Auto) (0.11-0.59) K/uL Eos # (Auto) (0.00-0.50) K/uL Baso # (Auto) (0.00-0.20) K/uL Immature Gran # (Auto) (0.01-0.20) K/uL Sodium (136-145) mmol/L Potassium (3.5-5.1) mmol/L Chloride (98-107) mmol/L Carbon Dioxide (21-32) mmol/L Anion Gap (3-11) BUN (6-23) mg/dl Creatinine (0.6-1.2) mg/dl Est Cr Clr Drug Dosing ml/min eGFR BUN/Creatinine Ratio (10-20) Glucose (70-99(Fasting)) mg/dl Lactate 2.5 H* 2.4 H* (0.4-2.0) mmol/L Calcium (8.6-10.3) mg/dl Magnesium (1.7-2.4) mg/dl Total Bilirubin (0.2-1.0) mg/dl AST (13-39) U/L ALT (7-52) U/L Alkaline Phosphatase (34-104) U/L Total Protein (6.0-8.3) gm/dl Albumin (3.4-5.0) gm/dl Globulin (2.5-4.0) gm/dl Albumin/Globulin Ratio (0.9-2) Procalcitonin (0-0.5) ng/ml HCG, Qual (Negative) Urine Color Yellow Urine Appearance Clear (Clear) Urine pH 5.5 (4.5-7.5) Ur Specific [place] 1.026 (1.000-1.030) Urine Protein Negative (Negative) Urine Glucose (UA) Negative (Negative) Urine Ketones Trace H (Negative) Urine Blood Negative (Negative) Urine Nitrite Negative (Negative) Urine Bilirubin Negative (Negative) Urine Urobilinogen Negative (Negative) Ur Leukocyte Esterase Negative (Negative) Adenovirus (PCR) (NotDetected) B. pertussis DNA (PCR) (NotDetected) B.parapertussis DNA PCR (NotDetected) C. pneumoniae DNA (PCR) (NotDetected) Coronavirus OC43 (PCR) (NotDetected) Coronavirus HKU1 (PCR) (NotDetected) Coronavirus 229E (PCR) (NotDetected) SARS-CoV-2 (PCR) (NotDetected) Coronavirus NL63 (PCR) (NotDetected) Human Metapneumovir PCR (NotDetected) Influenza Type A (PCR) (NotDetected) Influenza Type B (PCR) (NotDetected) M. pneumoniae (PCR) (NotDetected) Parainfluenza 1 (PCR) (NotDetected) Parainfluenza 2 (PCR) (NotDetected) Parainfluenza 3 (PCR) (NotDetected) Parainfluenza 4 (PCR) (NotDetected) RSV (PCR) (NotDetected) Entero/Rhino (PCR) (NotDetected) Administered Medications Discontinued Medications Dexamethasone Sodium Phosphate (DexamethasonePf 10 Mg/Ml Vial) 4 mg IV NOW ONE Stop: 08/30/24 17:07 Last Admin: 08/30/24 17:58 Dose: 4 mg Documented By: NAA Sodium Chloride (Nss) 1,000 mls @ 999 mls/hr IV .Q1H1M ONE Stop: 08/30/24 18:06 Last Infusion: 08/30/24 19:29 Dose: Infused Documented By: Admin: 08/30/24 17:59 Dose: 999 mls/hr Documented By: NAA Acetaminophen (Ofirmev) 1,000 mg in 100 mls @ 400 mls/hr IV NOW STA Stop: 08/30/24 17:20 Last Infusion: 08/30/24 18:55 Dose: Infused Documented By: Admin: 08/30/24 17:58 Dose: 400 mls/hr Documented By: NAA Sodium Chloride (Nss) 500 mls @ 999 mls/hr IV .Q31M ONE Stop: 08/30/24 19:57 Last Infusion: 08/30/24 21:03 Dose: Infused Documented By: Admin: 08/30/24 19:55 Dose: 999 mls/hr Documented By: TONA Sodium Chloride (Nss) 250 mls @ 999 mls/hr IV .Q16M ONE Stop: 08/30/24 19:42 Last Infusion: 08/30/24 21:03 Dose: Infused Documented By: Admin: 08/30/24 19:56 Dose: 999 mls/hr Documented By: TONA Ceftriaxone Sodium (Rocephin) 2,000 mg in 50 mls @ 100 mls/hr IV NOW STA Stop: 08/30/24 20:38 Last Infusion: 08/30/24 21:40 Dose: Infused Documented By: Admin: 08/30/24 20:53 Dose: 100 mls/hr Documented By: NAA Famotidine (Pepcid 20mg Iv Push) 20 mg in 5 mls @ 2.5 mls/min IV NOW STA Stop: 08/30/24 21:31 Last Admin: 08/30/24 21:39 Dose: 2.5 mls/min Documented By: TONA Ioversol (Optiray 320 100ml) 93 ml IV ONCE ONE Stop: 08/30/24 20:27 Last Admin: 08/30/24 20:26 Dose: 93 ml Documented By: PRICILA Ketorolac Tromethamine (Ketorolac Tromethamine 15 Mg/Ml Vial) 10 mg IV NOW ONE Stop: 08/30/24 19:05 Last Admin: 08/30/24 19:25 Dose: 10 mg Documented By: NAA Metoclopramide HCl (Metoclopramide Hcl Inj 5 Mg/Ml 2 Ml Vial) 10 mg IV NOW STA Stop: 08/30/24 21:25 Last Admin: 08/30/24 21:39 Dose: 10 mg Documented By: TONA Ondansetron HCl (Ondansetron Inj 2 Mg/Ml 2 Ml Vial) 4 mg IV NOW STA Stop: 08/30/24 17:07 Last Admin: 08/30/24 17:57 Dose: 4 mg Documented By: NAA Imaging Data Radiologist's Impression: Chest X-Ray 08/30/24 19:04 INDICATION: Cough. TECHNIQUE: Frontal radiograph of the chest. COMPARISON: Radiograph from 10/01/2023. FINDINGS: The cardiomediastinal silhouette and pulmonary vasculature appear within normal limits. No infiltrate, pleural effusion or pneumothorax. No acute osseous abnormality evident. IMPRESSION: No acute cardiopulmonary process. Electronically signed by Jamie Pedroza 08-30-2024 7:29 PM Abdomen/Pelvis CT 03/17/25 20:09 Exam(s): CT ABDOMEN + PELVIS With Contrast IV Amt: 93 cc opti 320 EXAM: CT Abdomen and Pelvis With Intravenous Contrast CLINICAL HISTORY: abd pain, N/V/D, fever. TECHNIQUE: Axial computed tomography images of the abdomen and pelvis with intravenous contrast. CTDI is 20 mGy and DLP is 1038 mGy-cm. Automated exposure control was utilized for the study. A dose lowering technique was utilized adhering to the principles of ALARA. CONTRAST: Patient received 93 cc opti 320 of IV contrast COMPARISON: CT abdomen and pelvis with contrast dated 09/13/2021 FINDINGS: Lung bases: Unremarkable. No mass. No consolidation. ABDOMEN: Liver: Unremarkable. No mass. Gallbladder and bile ducts: Unremarkable. No calcified stones. No ductal dilation. Pancreas: Unremarkable. No mass. No ductal dilation. Spleen: Unremarkable. No splenomegaly. Adrenals: Unremarkable. No mass. Kidneys and ureters: Unremarkable. No solid mass. No hydronephrosis. Stomach and bowel: No evidence for focal high-grade bowel obstruction. Fluid and gas distended small bowel throughout the abdomen and pelvis without dilation is noted. No obvious asymmetric bowel mucosal abnormality, accounting for limitations with diffuse respiratory artifact. Minimal stool burden. Questionable prominent fluid in the descending colon. No diverticulitis. PELVIS: Appendix: No findings to suggest acute appendicitis. Bladder: Unremarkable. No mass. Reproductive: Unremarkable as visualized. ABDOMEN and PELVIS: Intraperitoneal space: Unremarkable. No free air. No significant fluid collection. Bones/joints: A fat density area involving the lateral aspect of the enlarged left adrenal gland has increased from the previous examination, now measuring 1.7 x 1.4 cm from 1.1 x 0.8 cm previously. Otherwise, the previously described bilateral adrenal hypertrophic changes, left greater than right, are stable in appearance. No acute fracture. No dislocation. Soft tissues: Unremarkable. Vasculature: Unremarkable. No abdominal aortic aneurysm. Lymph nodes: Unremarkable. No enlarged lymph nodes. IMPRESSION: 1. A fat density area involving the lateral aspect of the enlarged left adrenal gland has increased from the previous examination, now measuring 1.7 x 1.4 cm from 1.1 x 0.8 cm previously. Otherwise, the previously described bilateral adrenal hypertrophic changes, left greater than right, are stable in appearance. 2. No evidence for focal high-grade bowel obstruction. Fluid and gas distended small bowel throughout the abdomen and pelvis without dilation is nonspecific in appearance but suggests diffuse enteritis. No obvious asymmetric bowel mucosal abnormality, accounting for limitations with diffuse respiratory artifact. Minimal stool burden. Questionable prominent fluid in the descending colon raises a suspicion for potential coexisting diarrheal disease. No diverticulitis. No free intraperitoneal fluid or pneumoperitoneum. Electronically signed by: Pramod Dawn MD 08/30/24 21:23 PM Discharge Plan Visit Data Chief Complaint: Illness Stated Complaint: N/V,FEVER,HEADACHE,DIZZINESS ED Provider: Luis Maloney ED Midlevel Provider: Richa Leon Discharge Problem: Nausea vomiting and diarrhea, High serum lactate, Elevated procalcitonin, Congenital adrenal hyperplasia Patient Disposition: Admitted As Inpatient Condition: Good Forms Stand Alone Forms: My Fitbit Prescriptions Prescriptions: No Action Medical Marijuana 1 dose inhalation DIRECTED PRN (Reason: NEEDED) Rx Instructions: PER PT "USES VAP AND TRYING TO MAKE EDIBLES". acetaminophen [Tylenol Extra Strength] 500 mg Tablet 500 - 1,000 mg PO DIRECTED PRN (Reason: Pain) methylprednisolone 2 mg Tablet 2 - 4 mg PO BID Rx Instructions: PER PT "TAKES 4 MG QAM, THEN 2 MG QPM". baclofen 10 mg tablet 10 mg PO BID PRN (Reason: MUSCLE SPASMS) diclofenac sodium 75 mg Tablet,Delayed Release (Dr/Ec) 75 mg PO DAILY albuterol sulfate 90 mcg/actuation Hfa Aerosol Inhaler 2 puff INHALATION DIRECTED PRN (Reason: Shortness Of Breath Or Wheezing) fludrocortisone 0.1 mg Tablet 0.1 mg PO DAILY spironolactone 50 mg Tablet 50 mg PO DAILY varenicline tartrate [Chantix] 1 mg Tablet 1 mg PO DAILY Referrals Referrals: Cordell Rosas DO [Primary Care Provider] -
[2024-08-30 17:20] LABS: Albumin Globulin Ratio 1.8 (0.9-2); Albumin Level 4.7 gm/dl (3.4-5.0); BUN Creatinine Ratio 12.9 (10-20); Bilirubin,Total 0.7 mg/dl (0.2-1.0); Calcium 8.7 mg/dl (8.6-10.3); Creatinine Clr Calc Pharmacy 76.9 ml/min; Globulin 2.6 gm/dl (2.5-4.0); Magnesium 1.8 mg/dl (1.7-2.4); Potassium 3.9 mmol/L (3.5-5.1); Total Protein 7.3 gm/dl (6.0-8.3)
[2024-08-30 17:30] LABS: Pregnancy Test, Serum Negative (Negative)
[2024-08-30] MEDS: ONDANSETRON INJ 2 MG/ML 2 ML VIAL IV STA (17:57)
[2024-08-30] MEDS: dexAMETHasone**PF** 10 MG/ML VIAL IV ONE (17:58)
[2024-08-30] MEDS: ACETAMINOPHEN 1,000 MG/100 ML VIAL IV STA (17:58)
[2024-08-30] MEDS: SODIUM CHLORIDE 0.9% 1,000 ML IV ONE (17:59)
[2024-08-30 19:13] LABS: Adenovirus PCR Not Detected (NotDetected); Bordetella parapertussis PCR Not Detected (NotDetected); Bordetella pertussis PCR Not Detected (NotDetected); Chlamydia pneumoniae PCR Not Detected (NotDetected); Coronavirus 229E PCR Not Detected (NotDetected); Coronavirus CoV-2 (COVID19)PCR Not Detected (NotDetected); Coronavirus HKU1 PCR Not Detected (NotDetected); Coronavirus NL63 PCR Not Detected (NotDetected); Coronavirus OC43PCR Not Detected (NotDetected); Human Metapneumovirus PCR Not Detected (NotDetected); Influenza A PCR Not Detected (NotDetected); Influenza B PCR Not Detected (NotDetected); Mycoplasma pneumoniae PCR Not Detected (NotDetected); Parainfluenza Virus 1 PCR Not Detected (NotDetected); Parainfluenza Virus 2 PCR Not Detected (NotDetected); Parainfluenza Virus 3 PCR Not Detected (NotDetected); Parainfluenza Virus 4 PCR Not Detected (NotDetected); Respiratory Syncytial VirusPCR Not Detected (NotDetected); Rhinovirus/Enterovirus PCR Not Detected (NotDetected)
[2024-08-30 19:18] LABS: Appearance Urine Clear (Clear); Bilirubin Urine Negative (Negative); Blood Urine Negative (Negative); Color Urine Yellow; Glucose Urine UA Negative (Negative); Ketones Urine Trace (Negative); Leukocyte Esterase Urine Negative (Negative); Nitrite Urine Negative (Negative); Protein Urine Negative (Negative); Specific Gravity Urine 1.026 (1.000-1.030); Urobilinogen Urine Negative (Negative); pH Urine 5.5 (4.5-7.5)
[2024-08-30] MEDS: KETOROLAC TROMETHAMINE 15 MG/ML VIAL IV ONE (19:25)
--- NOTE | 2024-08-30 19:29 | XRay Report ---
INDICATION: Cough. TECHNIQUE: Frontal radiograph of the chest. COMPARISON: Radiograph from 10/01/2023. FINDINGS: The cardiomediastinal silhouette and pulmonary vasculature appear within normal limits. No infiltrate, pleural effusion or pneumothorax. No acute osseous abnormality evident. IMPRESSION: No acute cardiopulmonary process. Electronically signed by Jamie Pedroza 08-30-2024 7:29 PM
[2024-08-30] MEDS: SODIUM CHLORIDE 0.9% 500 ML IV ONE (19:55)
[2024-08-30] MEDS: SODIUM CHLORIDE 0.9% 250 ML IV ONE (19:56)
[2024-08-30] MEDS: OPTIRAY 320 100ml IV ONE (20:26)
[2024-08-30] MEDS: cefTRIAXone SODIUM 2,000 MG/50 ML BAG IV STA (20:53)
--- NOTE | 2024-08-30 21:24 | CT Scan Report ---
Exam(s): CT ABDOMEN + PELVIS With Contrast IV Amt: 93 cc opti 320 EXAM: CT Abdomen and Pelvis With Intravenous Contrast CLINICAL HISTORY: abd pain, N/V/D, fever. TECHNIQUE: Axial computed tomography images of the abdomen and pelvis with intravenous contrast. CTDI is 20 mGy and DLP is 1038 mGy-cm. Automated exposure control was utilized for the study. A dose lowering technique was utilized adhering to the principles of ALARA. CONTRAST: Patient received 93 cc opti 320 of IV contrast COMPARISON: CT abdomen and pelvis with contrast dated 09/13/2021 FINDINGS: Lung bases: Unremarkable. No mass. No consolidation. ABDOMEN: Liver: Unremarkable. No mass. Gallbladder and bile ducts: Unremarkable. No calcified stones. No ductal dilation. Pancreas: Unremarkable. No mass. No ductal dilation. Spleen: Unremarkable. No splenomegaly. Adrenals: Unremarkable. No mass. Kidneys and ureters: Unremarkable. No solid mass. No hydronephrosis. Stomach and bowel: No evidence for focal high-grade bowel obstruction. Fluid and gas distended small bowel throughout the abdomen and pelvis without dilation is noted. No obvious asymmetric bowel mucosal abnormality, accounting for limitations with diffuse respiratory artifact. Minimal stool burden. Questionable prominent fluid in the descending colon. No diverticulitis. PELVIS: Appendix: No findings to suggest acute appendicitis. Bladder: Unremarkable. No mass. Reproductive: Unremarkable as visualized. ABDOMEN and PELVIS: Intraperitoneal space: Unremarkable. No free air. No significant fluid collection. Bones/joints: A fat density area involving the lateral aspect of the enlarged left adrenal gland has increased from the previous examination, now measuring 1.7 x 1.4 cm from 1.1 x 0.8 cm previously. Otherwise, the previously described bilateral adrenal hypertrophic changes, left greater than right, are stable in appearance. No acute fracture. No dislocation. Soft tissues: Unremarkable. Vasculature: Unremarkable. No abdominal aortic aneurysm. Lymph nodes: Unremarkable. No enlarged lymph nodes. IMPRESSION: 1. A fat density area involving the lateral aspect of the enlarged left adrenal gland has increased from the previous examination, now measuring 1.7 x 1.4 cm from 1.1 x 0.8 cm previously. Otherwise, the previously described bilateral adrenal hypertrophic changes, left greater than right, are stable in appearance. 2. No evidence for focal high-grade bowel obstruction. Fluid and gas distended small bowel throughout the abdomen and pelvis without dilation is nonspecific in appearance but suggests diffuse enteritis. No obvious asymmetric bowel mucosal abnormality, accounting for limitations with diffuse respiratory artifact. Minimal stool burden. Questionable prominent fluid in the descending colon raises a suspicion for potential coexisting diarrheal disease. No diverticulitis. No free intraperitoneal fluid or pneumoperitoneum. Electronically signed by: Pramod Dawn MD 08/30/24 21:23 PM
[2024-08-30] MEDS: FAMOTIDINE 20MG IV PUSH 20 MG/5 ML SYR IV STA (21:39)
[2024-08-30] MEDS: METOCLOPRAMIDE HCL INJ 5 MG/ML 2 ML VIAL IV STA (21:39)
--- NOTE | 2024-08-31 01:45 | History & Physical Report ---
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 Friday patient had brunch outside and since evening she started have a lot of nausea /vomiting and diarrhea. And also had temp spike. Not able to keep anything down. So came to the ER. Currently nausea is better. Was also having abdominal pain which is better now. Did not moved bowels since Friday afternoon. Denies any chest pain or shortness of breath. No cough. No headache. No runny nose or sore throat. Resting comfortably. Feeli ng hungry. Nausea vomiting and diarrhea Mostly gastroenteritis Will follow stool studies CT scan showing diffuse enteritis UA is unremarkable. Respiratory bio fire negative Seems improving Clear liquid diet for now Initial lactic is 2.5 repeat is 2.4 possibly from dehydration IV fluids, IV antiemetics as needed Procalcitonin is elevated empirically placed on Rocephin we will follow the blood cultures Will follow repeat lactic acid Observe in the hospital CAH due to 21-hydroxylase deficiency On methylprednisolone and Florinef and Aldactone Currently giving stress dose IV Decadron 4 mg daily Continue Florinef if able to take p.o. 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 Friday patient had brunch outside and since evening she started have a lot of nausea /vomiting and diarrhea. And also had temp spike. Not able to keep anything down. So came to the ER. Currently nausea is better. Was also having abdominal pain which is better now. Did not moved bowels since Friday. Denies any chest pain or shortness of breath. No cough. No headache. No runny nose or sore throat. Resting comfortably. Feeling hungry. Past medical history. As mentioned above Past surgical history. Bilateral carpal tunnel surgery. Vaginoplasty. Social history. Smokes 1.5 pack a day for last 23 years. Vapes some days. Alcohol rarely. Uses marijuana. History of heroin and cocaine and meth use. Family history. Brother had bipolar disorder. Brother had CAH. Paternal grandfather had CHF. Allergies Allergy/AdvReac Type Severity Reaction Status Date / Time silver Allergy Severe RASH Verified 08/30/24 19:19 Penicillins Allergy Unknown HAPPENED A Verified 08/30/24 19:19 LONG TIME AGO. Home Medications Medication Instructions Recorded Confirmed Type Medical Marijuana 1 dose inhalation DIRECTED PRN 09/13/21 08/30/24 History NEEDED acetaminophen 500 mg tablet 500 - 1,000 mg PO DIRECTED PRN 08/30/24 08/30/24 History (Tylenol Extra Strength) Pain albuterol sulfate 90 mcg/actuation 2 puff inhalation DIRECTED PRN 08/30/24 08/30/24 History aerosol inhaler Shortness Of Breath Or Wheezing baclofen 10 mg tablet 10 mg PO BID PRN MUSCLE SPASMS 08/30/24 08/30/24 History diclofenac sodium 75 mg 75 mg PO DAILY 08/30/24 08/30/24 History tablet,delayed release fludrocortisone 0.1 mg tablet 0.1 mg PO DAILY 08/30/24 08/30/24 History methylprednisolone 2 mg tablet 2 - 4 mg PO BID 08/30/24 08/30/24 History spironolactone 50 mg tablet 50 mg PO BID 08/30/24 08/31/24 History varenicline tartrate 1 mg tablet 1 mg PO DAILY 08/30/24 08/30/24 History (Chantix) Past Med/Surg History Problem List (Updated 08/30/24 @ 23:04 by Richa Leon PA-C) Congenital adrenal hyperplasia (Acute) Elevated procalcitonin (Acute) High serum lactate (Acute) Nausea vomiting and diarrhea (Acute) History of congenital adrenal hyperplasia (Chronic) Hx of drug abuse (Chronic) Social History Smoking Status: Current some day smoker Tobacco Type: Cigarettes Hx Alcohol Use: Yes Hx Substance Use: Yes Preferred Language: Thai Communication Ability: Effective Communications Administrator Required: No Beliefs That Will Affect Care: None Current Living Situation: Alone Other Information That Helps Us Care for You: No Feels Safe at Home: Yes Safety Concerns: Feels Safe At This Time Assistive Devices: Glasses Review of Systems Review of Systems: All systems reviewed & are unremarkable except as noted in HPI & below Physical Exam Physical Exam: General- Not in distress Head- atraumatic Eyes- PERRL. ENT- oropharynx clear Neck- supple, no JVD. Lungs- clear to auscultation no wheezing or crackles Heart- regular rate and rhythm; no murmur, no gallop. Abdomen- normal bowel sounds, soft, nontender, no distension. Extremities- no pretibial edema, no erythema seen Neuro- alert, oriented PERRL, no facial palsy; no dysarthria; moves extremities Results & Data Results & Data Vital Signs (Past 12 Hours) Vital Signs Temp Pulse Pulse Resp BP BP Pulse Ox 08/31/24 01:00 100 H 18 92/63 L 96 08/30/24 23:35 80 17 90/52 L 94 08/30/24 22:34 90 20 96/59 L 97 08/30/24 22:23 87 08/30/24 22:00 89 24 85/57 L 96 08/30/24 21:30 82 21 95/62 L 96 08/30/24 21:00 86 22 104/65 94 08/30/24 20:51 83 17 83/63 L 97 08/30/24 20:01 85 26 H 108/53 L 97 08/30/24 19:30 86 30 H 89/62 L 96 08/30/24 19:05 82/53 L 08/30/24 19:05 37.5 C 08/30/24 18:33 90 29 H 95 08/30/24 18:26 97 H 08/30/24 18:08 87 16 95/67 L 95 08/30/24 18:04 95/67 L 08/30/24 16:03 37.0 C 112 H 20 103/61 97 O2 Del Method 08/31/24 01:00 Room Air 08/30/24 23:35 Room Air 08/30/24 22:34 Room Air 08/30/24 22:23 08/30/24 22:00 Room Air 08/30/24 21:30 Room Air 08/30/24 21:00 Room Air 08/30/24 20:51 Room Air 08/30/24 20:01 Room Air 08/30/24 19:30 Room Air 08/30/24 19:05 08/30/24 19:05 08/30/24 18:33 Room Air 08/30/24 18:26 08/30/24 18:08 Room Air 08/30/24 18:04 08/30/24 16:03 Room Air Diagnostic Findings Laboratory Results WBC 10.17 K/ul (4.8-10.8) 08/30/24 16:40 RBC 5.29 M/uL (4.20-5.40) 08/30/24 16:40 Hgb 15.8 g/dl (12.0-16.0) 08/30/24 16:40 Hct 46.7 % (37.0-47.0) 08/30/24 16:40 MCV 88.3 fL (80.0-100.0) 08/30/24 16:40 MCH 29.9 pg (25.0-34.0) 08/30/24 16:40 MCHC 33.8 g/dL (32.0-36.0) 08/30/24 16:40 RDW Std Deviation 41.2 fL (36.4-46.3) 08/30/24 16:40 RDW Coeff of Sonya 12.8 % (11.5-14.5) 08/30/24 16:40 Plt Count 341 K/uL (130-400) 08/30/24 16:40 MPV 10.1 fL (9.4-12.4) 08/30/24 16:40 Immature Gran % (Auto) 0.4 % 08/30/24 16:40 Neut % (Auto) 79.0 % 08/30/24 16:40 Lymph % (Auto) 11.5 % 08/30/24 16:40 [place] % (Auto) 7.3 % 08/30/24 16:40 Eos % (Auto) 1.4 % 08/30/24 16:40 Baso % (Auto) 0.4 % 08/30/24 16:40 Neut # (Auto) 8.04 K/uL (1.40-6.50) H 08/30/24 16:40 Lymph # (Auto) 1.17 K/uL (1.20-3.40) L 08/30/24 16:40 [place] # (Auto) 0.74 K/uL (0.11-0.59) H 08/30/24 16:40 Eos # (Auto) 0.14 K/uL (0.00-0.50) 08/30/24 16:40 Baso # (Auto) 0.04 K/uL (0.00-0.20) 08/30/24 16:40 Immature Gran # (Auto) 0.04 K/uL (0.01-0.20) 08/30/24 16:40 Sodium 133 mmol/L (136-145) L 08/30/24 16:40 Potassium 3.9 mmol/L (3.5-5.1) 08/30/24 16:40 Chloride 104 mmol/L (98-107) 08/30/24 16:40 Carbon Dioxide 21 mmol/L (21-32) 08/30/24 16:40 Anion Gap 8 (3-11) 08/30/24 16:40 BUN 12 mg/dl (6-23) 08/30/24 16:40 Creatinine 0.93 mg/dl (0.6-1.2) 08/30/24 16:40 Est Cr Clr Drug Dosing 76.9 ml/min 08/30/24 16:40 eGFR 79.68 08/30/24 16:40 BUN/Creatinine Ratio 12.9 (10-20) 08/30/24 16:40 Glucose 105 mg/dl (70-99(Fasting)) H 08/30/24 16:40 Lactate 2.4 mmol/L (0.4-2.0) H* 08/30/24 20:57 Calcium 8.7 mg/dl (8.6-10.3) 08/30/24 16:40 Magnesium 1.8 mg/dl (1.7-2.4) 08/30/24 16:40 Total Bilirubin 0.7 mg/dl (0.2-1.0) 08/30/24 16:40 AST 19 U/L (13-39) 08/30/24 16:40 ALT 20 U/L (7-52) 08/30/24 16:40 Alkaline Phosphatase 81 U/L (34-104) 08/30/24 16:40 Total Protein 7.3 gm/dl (6.0-8.3) 08/30/24 16:40 Albumin 4.7 gm/dl (3.4-5.0) 08/30/24 16:40 Globulin 2.6 gm/dl (2.5-4.0) 08/30/24 16:40 Albumin/Globulin Ratio 1.8 (0.9-2) 08/30/24 16:40 Procalcitonin 0.57 ng/ml (0-0.5) H 08/30/24 16:04 HCG, Qual Negative (Negative) 08/30/24 16:40 Urine Color Yellow 08/30/24 19:03 Urine Appearance Clear (Clear) 08/30/24 19:03 Urine pH 5.5 (4.5-7.5) 08/30/24 19:03 Ur Specific [place] 1.026 (1.000-1.030) 08/30/24 19:03 Urine Protein Negative (Negative) 08/30/24 19:03 Urine Glucose (UA) Negative (Negative) 08/30/24 19:03 Urine Ketones Trace (Negative) H 08/30/24 19:03 Urine Blood Negative (Negative) 08/30/24 19:03 Urine Nitrite Negative (Negative) 08/30/24 19:03 Urine Bilirubin Negative (Negative) 08/30/24 19:03 Urine Urobilinogen Negative (Negative) 08/30/24 19:03 Ur Leukocyte Esterase Negative (Negative) 08/30/24 19:03 Adenovirus (PCR) Not Detected (NotDetected) 08/30/24 18:05 B. pertussis DNA (PCR) Not Detected (NotDetected) 08/30/24 18:05 B.parapertussis DNA PCR Not Detected (NotDetected) 08/30/24 18:05 C. pneumoniae DNA (PCR) Not Detected (NotDetected) 08/30/24 18:05 Coronavirus OC43 (PCR) Not Detected (NotDetected) 08/30/24 18:05 Coronavirus HKU1 (PCR) Not Detected (NotDetected) 08/30/24 18:05 Coronavirus 229E (PCR) Not Detected (NotDetected) 08/30/24 18:05 SARS-CoV-2 (PCR) Not Detected (NotDetected) 08/30/24 18:05 Coronavirus NL63 (PCR) Not Detected (NotDetected) 08/30/24 18:05 Human Metapneumovir PCR Not Detected (NotDetected) 08/30/24 18:05 Influenza Type A (PCR) Not Detected (NotDetected) 08/30/24 18:05 Influenza Type B (PCR) Not Detected (NotDetected) 08/30/24 18:05 M. pneumoniae (PCR) Not Detected (NotDetected) 08/30/24 18:05 Parainfluenza 1 (PCR) Not Detected (NotDetected) 08/30/24 18:05 Parainfluenza 2 (PCR) Not Detected (NotDetected) 08/30/24 18:05 Parainfluenza 3 (PCR) Not Detected (NotDetected) 08/30/24 18:05 Parainfluenza 4 (PCR) Not Detected (NotDetected) 08/30/24 18:05 RSV (PCR) Not Detected (NotDetected) 08/30/24 18:05 Entero/Rhino (PCR) Not Detected (NotDetected) 08/30/24 18:05 Impressions Chest X-Ray 08/30/24 19:04 INDICATION: Cough. TECHNIQUE: Frontal radiograph of the chest. COMPARISON: Radiograph from 10/01/2023. FINDINGS: The cardiomediastinal silhouette and pulmonary vasculature appear within normal limits. No infiltrate, pleural effusion or pneumothorax. No acute osseous abnormality evident. IMPRESSION: No acute cardiopulmonary process. Electronically signed by Jamie Pedroza 08-30-2024 7:29 PM Abdomen/Pelvis CT 08/30/24 20:09 Exam(s): CT ABDOMEN + PELVIS With Contrast IV Amt: 93 cc opti 320 EXAM: CT Abdomen and Pelvis With Intravenous Contrast CLINICAL HISTORY: abd pain, N/V/D, fever. TECHNIQUE: Axial computed tomography images of the abdomen and pelvis with intravenous contrast. CTDI is 20 mGy and DLP is 1038 mGy-cm. Automated exposure control was utilized for the study. A dose lowering technique was utilized adhering to the principles of ALARA. CONTRAST: Patient received 93 cc opti 320 of IV contrast COMPARISON: CT abdomen and pelvis with contrast dated 09/13/2021 FINDINGS: Lung bases: Unremarkable. No mass. No consolidation. ABDOMEN: Liver: Unremarkable. No mass. Gallbladder and bile ducts: Unremarkable. No calcified stones. No ductal dilation. Pancreas: Unremarkable. No mass. No ductal dilation. Spleen: Unremarkable. No splenomegaly. Adrenals: Unremarkable. No mass. Kidneys and ureters: Unremarkable. No solid mass. No hydronephrosis. Stomach and bowel: No evidence for focal high-grade bowel obstruction. Fluid and gas distended small bowel throughout the abdomen and pelvis without dilation is noted. No obvious asymmetric bowel mucosal abnormality, accounting for limitations with diffuse respiratory artifact. Minimal stool burden. Questionable prominent fluid in the descending colon. No diverticulitis. PELVIS: Appendix: No findings to suggest acute appendicitis. Bladder: Unremarkable. No mass. Reproductive: Unremarkable as visualized. ABDOMEN and PELVIS: Intraperitoneal space: Unremarkable. No free air. No significant fluid collection. Bones/joints: A fat density area involving the lateral aspect of the enlarged left adrenal gland has increased from the previous examination, now measuring 1.7 x 1.4 cm from 1.1 x 0.8 cm previously. Otherwise, the previously described bilateral adrenal hypertrophic changes, left greater than right, are stable in appearance. No acute fracture. No dislocation. Soft tissues: Unremarkable. Vasculature: Unremarkable. No abdominal aortic aneurysm. Lymph nodes: Unremarkable. No enlarged lymph nodes. IMPRESSION: 1. A fat density area involving the lateral aspect of the enlarged left adrenal gland has increased from the previous examination, now measuring 1.7 x 1.4 cm from 1.1 x 0.8 cm previously. Otherwise, the previously described bilateral adrenal hypertrophic changes, left greater than right, are stable in appearance. 2. No evidence for focal high-grade bowel obstruction. Fluid and gas distended small bowel throughout the abdomen and pelvis without dilation is nonspecific in appearance but suggests diffuse enteritis. No obvious asymmetric bowel mucosal abnormality, accounting for limitations with diffuse respiratory artifact. Minimal stool burden. Questionable prominent fluid in the descending colon raises a suspicion for potential coexisting diarrheal disease. No diverticulitis. No free intraperitoneal fluid or pneumoperitoneum. Electronically signed by: Pramod Dawn MD 08/30/24 21:23 PM Code Status & VTE Plan VTE Prophylaxis Plan VTE Prophylaxis will be ordered: Yes
[2024-08-31] MEDS: LACTATED RINGER'S 1,000 ML IV SCH (01:57)
[2024-08-31] MEDS ORDERED: ALBUTEROL HFA 8 GM INHALER INH PRN (02:42)
[2024-08-31] MEDS ORDERED: BACLOFEN 10 MG TAB PO PRN (02:42)
[2024-08-31] MEDS ORDERED: ONDANSETRON INJ 2 MG/ML 2 ML VIAL IV PRN (02:42)
[2024-08-31] MEDS ORDERED: ACETAMINOPHEN 1,000 MG/100 ML VIAL IV PRN (02:42)
[2024-08-31] MEDS: SODIUM CHLORIDE 0.9% 1,000 ML IV SCH (02:44)
--- OUTSIDE RECORDS SUMMARY | 2024-08-31 02:55 | External Medical Summary | Summary of Care ---
Author Name Unknown Organization [facility] Address [address] [place] [address] Phone [phone] Care Team Providers Care Iuss Analyst Name Role Phone Cordell Rosas DO Primary Care Provider [phone] Reason for Visit * Reason Onset Date Comments Advice 08/06/2024 Encounter Details Date Type Department Care Team (Late st Contact Info) Description 08/06/2024 Telephone Access Center, [facility] [address] [facility] *DO NOT REMOVE THIS DEPARTMENT* [place] [address] Services, Scheduling [address] [place] [address] Advice Allergies Active Allergy Reactions Criticality Noted Date Comments Penicillins 01/01/2002 Silver 01/05/2016 documented as of this encounter (statuses as of 08/13/2024) Medications Acetaminophen 500 MG Oral Tablet (Tylenol Extra Strength) Take 1 Tablet by mouth every 6 hours as needed. Active Albuterol Sulfate HFA 108 (90 Base) MCG/ACT Inhalation Aerosol SolutionIndicatio ns:Bronchitis, complicated Inhale 2 Puffs by mouth every 4 hours as needed for Wheezing. 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 20 Tablet 12/01/19 24 Active Baclofen 10 MG Oral Tablet (Lioresal)Indicat ions:Cervical radiculopathy due to degenerative joint disease of spine,Osteoarthri tis of left AC (acromioclavicula r) joint Take 1 Tablet by mouth in the morning and 1 Tablet before bedtime. 40 Tablet 1 12/01/19 24 Active Vitamin D3 50 MCG (2000 UT) Oral Capsule TAKE 1 CAPSULE BY MOUTH EVERY MORNING 90 Capsule 1 01/27/20 24 Active Benzonatate 200 MG Oral CapsuleIndication s:Acute non-recurrent maxillary sinusitis Take 1 Capsule by mouth 3 times a day as needed for Cough. 50 Capsule 1 04/05/20 24 Active Diclofenac Sodium 75 MG Oral Tablet Delayed Release (Voltaren) 04/24/20 24 Active Varenicline Tartrate 1 MG Oral Tablet (Chantix)Indicati ons:Tobacco use disorder Take 1 Tablet by mouth in the morning. 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 DDD (degenerative disc disease), lumbar Chronic back pain Overview (12/26/2016): back injury documented as of this encounter (statuses as of 08/13/2024) Resolved Problems Problem Noted Date Diagnosed Date Resolved Date Major depressive disorder, r ecurrent episode, moderate 12/19/2023 02/09/2024 History of congenital adrenal hyperplasia 10/02/2023 10/02/2023 Heroin withdrawal 03/01/2017 03/16/2018 Right foot pain 10/15/2016 10/02/2023 Pain of right lower leg 10/15/201609/14 Adrenogenital disorder 12/24/200407/29 documented as of this encounter (statuses as of 08/13/2024) Immunizations Name Administration Dates Next Due DTP Vaccine 08/03/1985,03/10/1985,1984 HEPATITIS B VACCINE, RECOMB, 20 MCG/ML, ADULT (HEPLISAV-B) 07/23/2023 Hepatitis B, 20+ yrs 10/02/2023 OPV - Polio Virus Vaccine (Oral) 03/10/1985,11/14 Pneumococcal Conjugate Vacci ne, 20-valent ([id number]) 03/25/2022 Pneumococcal Polysaccharide PPV23 (Pneumovax) 11/20/2016 Seasonal Influenza Vac., MDV , IM, 0.5 mL (Fluzone) 04/16/2011 Seasonal Influenza Virus Vac cine, Unspecified Formulation 04/16/2011 TDAP (age 10 and older)(Boostrix) 09/05/2018, documented as of this encounter Social History Tobacco Use Types Packs/Day Years Used Date Smoking Tobacco: Every Day Cigarettes 1.5 23 Smokeless Tobacco: Never Comments:currently smoking 5 -10 cig/day. 5-10 cpd smoker 10/15/23 Alcohol Use Standard Drinks/Week Comments Yes 0 (1 standard drink = 0.6 oz pur e alcohol) rare PHQ-2 Answer Date Recorded PHQ Adult Total Score 24 01/21/2024 Hunger Vital Sign Answer Date Recorded Within the past 12 months, y ou worried that your food would run out before you got the money to buy more. Sometimes true Within the past 12 months, t he food you bought just didn't last and you didn't have money to get more. Sometimes true Childcare Answer Date Recorded Do you feel overwhelmed with taking care of a child, family member or friend? No 11/13/2023 Does your family need help f inding childcare? (Household - for ages 0-17 years) Not on file 11/13/2023 Clothing Answer Date Recorded Have you been unable to get clothing when it was really needed? No 11/13/2023 Is your family able to get c lothes or diapers when needed? (Household - for ages 0-17 years) Not on file 11/13/2023 Personal Safety Answer Date Recorded Do you feel unsafe or have concerns for your saf ety? No 11/13/2023 Do you have concerns for you r family's safety? (Household - for ages 0-17 years) Not on file 11/13/2023 Utilities Answer Date Recorded Do you have trouble paying y our heating, water, or electric bill? Yes 11/13/2023 Is your family able to pay t he heat, water, or electric bill? (Household - for ages 0-17 years) Not on file 11/13/2023 Does your family have access to good internet? (Household - for ages 0-17 years) Not on file 11/13/2023 Employment Status Answer Date Recorded Are you unemployed or without regular income? Ye s 11/13/2023 Does the household have a re gular source of income? (Household - for ages 0-17 years) Not on file 11/13/2023 Social Connections Answer Date Recorded How often do you feel lonely or isolated from th ose around you? Often 11/13/2023 Financial Resource Strain Answer Date R ecorded Do you have any trouble payi ng for your medications, or do you think you might in the future? No 11/13/2023 Does your family have troubl e paying for medicine? (Household - for ages 0-17 years) Not on file 11/13/2023 Transportation Needs Answer Date Record ed READ ONLY Do you have troubl e getting a ride to medical visits or work? Never True 11/13/2023 Does your family have a hard time getting a ride to doctors visits? (Household - for ages 0-17 years) Not on file 11/13/2023 Has lack of transportation k ept you from medical appointments, meetings, work, or from getting things needed for daily living? Check all that apply. (Adult - for ages 18 years and over) Not on file 11/13/2023 Do you (or your family) have trouble finding or paying for a ride (transportation)? (Household - for ages 0-17 years) Not on file 11/13/2023 Housing Stability Answer Date Recorded Do you currently live in a s helter or have no steady place to sleep at night? No 11/13/2023 READ ONLY Do you think you a re at risk of becoming homeless? No 11/13/2023 Does your family worry about paying for your home or becoming homeless? (Household - for ages 0-17 years) Not on file 0 11/13/2023 Are you homeless or worried that you might be in the future? (Adult - for ages 18 years and over) Not on file Are you (or your family) lucila eless or worried that you might be in the future? (Household - for ages 0-17 years) Not on file Food Insecurity Answer Date Recorded Do you need food for this week? No 11/13/2023 Are you able to get enough f ood for your family? (Household - for ages 0-17 years) Not on file 11/13/2023 Does your family need food t his week? (Household - for ages 0-17 years) Not on file 11/13/2023 Do you always have enough fo od for your family? (Household - for ages 0-17 years) Not on file 11/13/2023 Food Insecurity Answer Date Recorded Within the past 12 months, y ou worried that your food would run out before you got the money to buy more. Sometimes true Within the past 12 months, t he food you bought just didn't last and you didn't have money to get more. Sometimes true Do you need food for this week? No 11/13/2023 Comments Unknown Sex and Gender Information Value Date Recorded Sex Assigned at Female 04/21/2020 9:12 AM EST Legal Sex Female 5:25 AM EST Gender Identity Female 04/21/2020 9:12 AM EST Sexual Orientation Lesbian 04/21/2020 9: 12 AM EST Occupation Industry Job Start Date Job End Date [employer] Not on file Not on file Not on file documented as of this encounter Miscellaneous Notes * Telephone Encounter - Miranda Mustafa LPN - 08/13/2024 2:39 PM EST Images from the original note were not included. This was addressed with Dr Davidson 08/12, patient to have labs drawn and based on results, will be following up with our office in [address] Davidson sees pt again * Telephone Encounter - Sharri Santana OSA - 08/13/2024 11:19 AM EST Leslie ( [facility] ) calling requesting to speak with someone regarding this matter please contact Leslie @ [phone] * Telephone Encounter - Shubham Bey DO - 08/06/2024 12:[address] Childress pt Return not new Also per 07/21/24 pt email I will not be able to keep our appointment tomorrow due to having lost my medicaid coverage. I was able to get into [facility] to start getting care there since I cannot afford insurance. I've given them copies of my medication list, health conditions and a copy of future appointments. They are working to get me my medications back and will be setting me up hopefully soon to get labwork done so I can forward everything to you. If [place] would stop going off of gross income, I'd still have medical coverage. Not sure financially she can afford this, and she seems to be plugged in with care and Dr. Childress aware Id cancel * Telephone Encounter - Lesli Chavira OSA - 08/06/2024 12:32 PM EST NEW REFERRAL pt has a new referral please advise and send back to me, thank you! documented in this encounter Plan of Treatment Upcoming Encounters Date Type Department Care Team (Late st Contact Info) Description 09/09/2024 9:15 AM EDT Office Visit Orthopaedics [facility] [address] [place] [phone] Mario Mackey, [address] [place] [address] 10/14/2024 11:30 AM EDT Office Visit Pulmonary Medicine, [facility] [address] [place] [address] John Jolly MD [address] [facility] [place] [address] Health Maintenance Due Date Last Done Comments Pap Smear 2005 Cervical Cancer Screening 2014 HPV/Co-Test 2014 Hepatitis B Vaccine (3 of 3 - 19+ 3-dose series) 01/21/2024 10/02/2023, 07/23/2023 COVID-19 Vaccine ( season) 2024 Influenza Vaccine (FLU shot) (#1) 2024 04/16/2011, 04/16/2011 Depression Monitoring 01/20/2025 01/21/2024 Diabetes Screening 04/05/2027 04/05/2024, 1 , 03/11/2024, Additional history exists DTap/Tdap Vaccines (6 - Td or Tdap) 09/05/2028 09/05/2018, 02/13/2016, 08/03/1985, Additional history exists Hepatitis C Screening Completed 10/28/2018 Pneumococcal Vaccine: Pediatrics (0 to 5 Years) and At-Risk Patients (6 to 18 Years and 19+ Years) Completed 03/25/2022, 11/20/2016 HPV (Gardasil) Vaccine Aged Out No lo nger eligible based on patient's age to complete this topic MENINGOCOCCAL (MENACTRA/MENVEO) Aged Out No longer eligible based on patient's age to complete this topic Meningitis B Vaccine (Bexsero/Trumemba) Aged Out No longer eligible based on patient's age to complete this topic documented as of this encounter Medical Devices Not on filedocumented as of this encounter Care Teams Iuss Analyst Relationship Specialty Start Date End Date Cordell Rosas DO [address] [place] [address] PCP - General Family Medicine 03/11/24 documented as of this encounter
--- OUTSIDE RECORDS SUMMARY | 2024-08-31 02:56 | External Medical Summary | Summary of Care ---
Author Name Unknown Organization [facility] Address [address] [place] [address] Phone [phone] Care Team Providers Care Sausage Stuffer Name Role Phone Cordell Rosas DO Primary Care Provider [phone] Reason for Visit * Reason Onset Date Comments Advice 08/12/2024 Encounter Details Date Type Department Care Team (Late st Contact Info) Description 08/12/2024 Telephone Family Practice [facility] [address] [place] [address] Cordell Rosas DO [address] [place] [address] Advice Allergies Active Allergy Reactions Criticality Noted [...] ff 05/22/2023 Food insecurity 11/25/2022 Overview: Per [facility] Protocol Anxiety and depression 08/14/2022 History [...] (Oral) 03/10/1985,11/14 Pneumococcal Conjugate Vacci ne, 20-valent ([id number]) 03/25/2022 Pneumococcal Polysaccharide PPV23 (Pneumovax) 11/20/2016 Seasonal [...] Encounter - Miranda Mustafa LPN - 08/13/2024 6:43 AM EST Addressed in 07/19/2024 encounter Miranda Mustafa LPN 08/13/2024 6:43 AM * Telephone Encounter - Akash Hunt OSA - 08/12/2024 2:48 PM EST Reason for patient's call: Leslie calling from Dr. 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 Please call doctor on her personal cell phone at [phone]Allison Davidson can be reached by tiger text. Patient is struggling with a lot of issue. Caller was transferred to [facility] at the nurse line. documented in this encounter Plan of Treatment Upcoming Encounters Date Type Department Care Team (Late st Contact Info) Description 09/09/2024 9:15 AM EDT Office Visit [facility]ics [facility] [address] [place] [phone] Mario Mackey DO [address] [place] [address] 10/14/2024 11:30 AM EDT Office Visit Pulmonary Medicine, Health system [address] [place] [address] John Jolly MD [address] [facility] [place] [id number] Health Maintenance Due Date Last Done Comments [...] filedocumented as of this encounter Care Teams Sausage Stuffer Relationship Specialty Start Date End Date Cordell Rosas DO [address] [place] [address] PCP - General Family Medicine 03/11/24 documented as of this encounter
--- OUTSIDE RECORDS SUMMARY | 2024-08-31 02:56 | External Medical Summary | Summary of Care ---
Author Name Unknown Organization [facility] Address [address] [facility] [place] [address] Phone [phone] Care Team Providers Care Job Superintendent Name Role Phone Cordell Rosas DO Primary Care Provider [phone] Reason for Referral * Evaluate & Treat - Unlimited Visits (Within 10 days (routine)) - Pending Review Specialty Diagnoses / Procedures Referred By Luz west Referred To Contact Endocrinology/Metabolism / Endocrinology Diagnoses Congenital adrenal cortical hyperplasia (HCC) Ania Davidson DO [address] [place] [address] Phone: tel: fax: Referral ID Status Reason Start Date Expiration Date Visits Requested Visits Authorized [id number] Pending Review Specialty Services Required 08/06/[phone] Question Answer Referral Priority Within 10 days (routine) Where should this appointment be scheduled? [facility] For what condition is the patient being referred? Other Conditions Comments Notes scanned into epic 08/06/24 crb Encounter Details Date Type Department Care Team (Late st Contact Info) Description 08/06/2024 Orders Only Access Center, [facility] [address] [facility] *DO NOT REMOVE THIS DEPARTMENT* [place] [address] Request, External Referral Congenital adrenal cortical hyperplasia (HCC)* Allergies Active Allergy Reactions Criticality Noted Date Comments Penicillins 01/01/2002 Silver 01/05/2016 documented as of this encounter (statuses as of 08/06/2024) Medications Acetaminophen 500 MG Oral Tablet (Tylenol [...] with dexamethasone if adrenal crisis 5 Each 07/10/19 24 Active Fludrocortisone Acetate 0.1 MG [...] as of this encounter (statuses as of 08/06/2024) Active Problems Problem Noted Date Diagnosed Date DRE (generalized anxiety disorder) 12/19/2023 Nontraumatic incomplete tear of right rotator cu ff 05/22/2023 Food insecurity 11/25/2022 Overview: Per [facility] Protocol Anxiety and depression 08/14/2022 History of tobacco use 05/29/2022 Thoracic back pain 04/28/2017 Lumbar spine pain 04/28/2017 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 DDD (degenerative disc disease), lumbar Chronic back pain Overview (12/26/2016): back injury documented as of this encounter (statuses as of 08/06/2024) Resolved Problems Problem Noted Date Diagnosed Date Resolved Date Major depressive disorder, r ecurrent episode, moderate 12/19/2023 02/09/2024 History of congenital adrenal hyperplasia 10/02/2023 10/02/2023 Heroin withdrawal 03/01/2017 03/16/2018 Right foot pain 10/15/2016 10/02/2023 Pain of right lower leg 10/15/201609/14 Adrenogenital disorder 12/24/200407/29 documented as of this encounter (statuses as of 08/06/2024) Immunizations Name Administration Dates Next Due DTP Vaccine 08/03/1985,03/10/1985,1984 HEPATITIS B VACCINE, RECOMB, 20 MCG/ML, ADULT (HEPLISAV-B) 07/23/2023 Hepatitis B, 20+ yrs 10/02/2023 OPV - Polio Virus Vaccine (Oral) 03/10/1985,11/14 Pneumococcal Conjugate Vacci ne, 20-valent ([id number]) 03/25/2022 Pneumococcal Polysaccharide PPV23 (Pneumovax) 11/20/2016 Seasonal [...] on file documented as of this encounter Plan of Treatment Upcoming Encounters Date Type Department Care Team (Late st Contact Info) Description 09/09/2024 9:15 AM EDT Office Visit Orthopaedics [facility] [address] [place] [phone] Mario Mackey DO [address] [place] [address] 10/14/2024 11:30 AM EDT Office Visit Pulmonary Medicine, [facility] [address] [place] [address] John Jolly MD [address] [place] [address] Scheduled Referrals Name Type Priority Associated Diagnoses Orde r Schedule ADULT ENDOCRINOLOGY REFERRAL OP Referral Within 10 days (routine) Congenital adrenal cortical hyperplasia (HCC) Ordered: 08/06/2024 Health Maintenance Due Date Last Done Comments Pap Smear 2005 Cervical Cancer Screening 2014 HPV/Co-Test 2014 Hepatitis B Vaccine (3 of 3 - 19+ 3-dose series) 01/21/2024 10/02/2023, 07/23/2023 COVID-19 Vaccine (2023- season) 2024 Influenza Vaccine (FLU shot) (#1) [...] Not on filedocumented as of this encounter Visit Diagnoses Diagnosis Congenital adrenal cortical hyperplasia (HCC)- Primary Adrenogenital disorders documented in this encounter Care Teams Job Superintendent Relationship Specialty Start Date End Date Cordell Rosas DO [address] [place] [address] PCP - General Family Medicine 03/11/24 documented as of this encounter
--- OUTSIDE RECORDS SUMMARY | 2024-08-31 02:56 | External Medical Summary | Summary of Care ---
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 30 Tablet 3 05/03/20 24 Active Doxycycline Hyclate 100 MG Oral CapsuleIndication s:Acute non-recurrent maxillary sinusitis Take 1 Capsule by mouth in the morning and 1 Capsule before bedtime. Do all this for 10 days. Until gone.. 20 Capsule 04/05/20 24 024 Discontin ued(Patie nt preferenc e/discont inuation) Varenicline Tartrate 0.5 MG Oral Tablet (Chantix)Indicati ons:Tobacco use disorder Take 1 Tablet by mouth in the morning. 30 Tablet 04/05/20 24 024 Discontin ued(Medic ation/Dos e Changed) Hospital, Clinic, or Other Facility Administered Medication Ordered Dose Route Frequency Start Date End Date Status Albuterol Sulfate (Proventil) (5 MG/ML) 0.5% *conc* inhalation solution 2.5 mgIndications:Chronic cough,Hilar lymphadenopathy,Congeni cassidy adrenal hyperplasia due to 70-yzyv-bwnxevqamef deficiency (HCC) 2.5 mg NEBULIZER PRN 07/16/2023 07/15/2024 Active Albuterol Sulfate (Proventil) (2.5 MG/3ML) 0.083% inhalation solution 2.5 mgIndications:Chronic cough,Hilar lymphadenopathy,Congeni cassidy adrenal hyperplasia due to 97-sskz-wqhfzeucfie deficiency (HCC) 2.5 mg NEBULIZER PRN 07/16/2023 07/15/2024 Active documented as of this encounter (statuses as of 05/03/2024) Active Problems Problem Noted Date Diagnosed Date DRE (generalized anxiety disorder) 12/19/2023 Nontraumatic incomplete tear of right rotator cu ff 05/22/2023 Food insecurity 11/25/2022 Overview: Per [facility] Protocol Anxiety and depression 08/14/2022 History of tobacco use 05/29/2022 Thoracic back pain 04/28/2017 Lumbar spine pain 04/28/2017 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 DDD (degenerative disc disease), lumbar Chronic back pain Overview (12/26/2016): back injury documented as of this encounter (statuses as of 05/03/2024) Resolved Problems Problem Noted Date Diagnosed Date Resolved Date Major depressive disorder, r ecurrent episode, moderate 12/19/2023 02/09/2024 History of congenital adrenal hyperplasia 10/02/2023 10/02/2023 Heroin withdrawal 03/01/2017 03/16/2018 Right foot pain 10/15/2016 10/02/2023 Pain of right lower leg 10/15/201609/14 Adrenogenital disorder 12/24/200407/29 documented as of this encounter (statuses as of 05/03/2024) Immunizations Name Administration Dates Next Due DTP Vaccine 08/03/1985,03/10/1985,1984 HEPATITIS B VACCINE, RECOMB, 20 MCG/ML, ADULT (HEPLISAV-B) 07/23/2023 Hepatitis B, 20+ yrs 10/02/2023 OPV - Polio Virus Vaccine (Oral) 03/10/1985,11/14 Pneumococcal Conjugate Vacci ne, 20-valent ([id number]) 03/25/2022 Pneumococcal Polysaccharide PPV23 (Pneumovax) 11/20/2016 Seasonal [...] ages 0-17 years) Not on file 11/13/2023 Comments Unknown Sex and Gender Information Value Date Recorded Sex Assigned at Female 04/21/2020 9:12 AM EST Legal Sex Female 5:25 AM EST Gender Identity Female 04/21/2020 9:12 AM EST Sexual Orientation Lesbian 04/21/2020 9: 12 AM EST Occupation Industry Job Start Date Job End Date [employer] Not on file Not on file Not on file documented as of this encounter Last Filed Vital Signs Vital Sign Reading Time Taken Comments Blood Pressure 110/68 05/03/2024 4:17 PM EST Pulse 84 05/03/2024 4:17 PM EST Temperature 37.7 C (99.9 F) 05/03/2024 4:17 PM ES T Respiratory Rate - - Oxygen Saturation 98% 05/03/2024 4:17 PM EST Inhaled Oxygen Concentration - - Weight 75 kg (165 lb 4.8 oz) 05/03/2024 4:17 PM EST Height 162.6 cm (5' 4.02") 05/03/2024 4:17 PM ES T Body Mass Index 28.36 05/03/2024 4:17 PM EST documented in this encounter Progress Notes * Anjel Mansfield, DO - 05/03/2024 4:21 PM EST Subjective Tg Estrada is a 38 year old female. Chief Complaint Patient presents with Re-Check HPI: Patient presents for follow up. Recent lab work reviewed with patient. Medication list reviewed. Patient was treated for sinusitis last visit with Doxycycline. Seems to have issues with chronic sinusitis. Has been noting some night sweats which have now stopped. CMP, CBC, A1c and TSH/Free T4 looked ok overall. Has still been using awxa-bip-lbjewxc meds to help with sinus congestion but overallfeeling much better. No further night sweats. Tobacco use history with trouble quitting with nicotine patch alone. Last visit started on Chantix 0.5mg daily. Has had some vivid dreams but no night terrors or other DRS noted. Cravings and cigarette use decreased but still getting regular cravings. History of CAH. Remains on methylprednisolone and fludrocortisone daily. This is likely the cause of mild elevation WBCs on labs. No acute issues otherwise. 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 Albuterol Sulfate HFA 108 (90 Base) MCG/ACT Inhalation Aerosol Solution Inhale 2 Puffs by mouth every 4 hours as needed for Wheezing. 18 g 5 dexAMETHasone Sodium Phosphate 4 MG/ML Injection Solution (Decadron) Inject 4 mg into a large muscle as needed for Other (adrenal flare). 1 mL 3 Syringe 22G X 1-1/2" 3 ML Use with dexamethasone if adrenal crisis 5 Each 3 Fludrocortisone Acetate 0.1 MG Oral Tablet (Florinef) TAKE 1 TABLET BY MOUTH EVERY DAY IN THE MORNING 90 Tablet 3 methylPREDNISolone 2 MG Oral Tablet Take 2 pills in the morning and 1 pill in the evening 270 Tablet 3 Spironolactone 50 MG Oral Tablet (Aldactone) one pill twice a day 180 Tablet 3 LORazepam 0.5 MG Oral Tablet (Ativan) Take 1 Tablet by mouth daily as needed for Anxiety. 20 Tablet0 Baclofen 10 MG Oral Tablet (Lioresal) Take 1 Tablet by mouth in the morning and 1 Tablet before bedtime. 40 Tablet 1 Vitamin D3 50 MCG (1999 UT) Oral Capsule TAKE 1 CAPSULE BY MOUTH EVERY MORNING 90 Capsule 1 Benzonatate 200 MG Oral Capsule Take 1 Capsule by mouth 3 times a day as needed for Cough. 50 Capsule 1 Varenicline Tartrate 0.5 MG Oral Tablet (Chantix) Take 1 Tablet by mouth in the morning. 30 Tablet 0 Current Facility-Administered Medications Medication Dose Route Frequency Provider Last Rate Last Admin Albuterol Sulfate (Proventil) (5 MG/ML) 0.5% *conc* inhalation solution 2.5 mg 2.5 mg Nebulizer John Seals MD Albuterol Sulfate (Proventil) (2.5 MG/3ML) 0.083% inhalation solution 2.5 mg 2.5 mg Nebulizer SHIRAN John Jolly MD 2.5 mg at 07/30/23 1320 Past Medical History: Diagnosis Date Adrenal disorder (HCC) CAH Chronic back pain back injury DDD (degenerative disc disease), lumbar Depression History of congenital adrenal hyperplasia 10/02/2023 Past Surgical History: Procedure Laterality Date CARPAL TUNNEL SYNDROME EDU. Bilateral UROLOGY SURGERY PROCEDURE NEC vaginoplasty Review of patient's allergies indicates: Allergen Reactions Penicillins Silver Family History Problem Relation Name Age of Onset Other (adrenal [Other]) Brother CAH Bipolar Disorder Brother Other (adrenal [Other]) Grandfather (Paternal) CAH Family Status Relation Status Mo Alive Fa Alive Bro Alive PGFA (Not Specified) Social History Socioeconomic History Marital status: Single Spouse name: Not on file Number of children: Not on file Years of education: Not on file Highest education level: Not on file Occupational History Occupation: [employer] Comment: [employer] Tobacco Use Smoking status: Every Day Current packs/day: 1.50 Average packs/day: 1.5 packs/day for 23.0 years (34.5 ttl pk-yrs) Types: Cigarettes Smokeless tobacco: Never Tobacco comments: currently smoking 5-10 cig/day. 5-10 cpd smoker 10/15/23 Vaping Use Vaping status: Some Days Substance and Sexual Activity Alcohol use: Yes Comment: rare Drug use: Yes Frequency: 14.0 times per week Types: Marijuana Comment: rare. h/o heroin, cocaine, meth user Sexual activity: Not on file Other Topics Concern Service Not Asked Blood Transfusions Not Asked Caffeine Concern Not Asked Occupational Exposure Not Asked Hobby Hazards Not Asked Sleep Concern Not Asked Stress Concern Not Asked Weight Concern Not Asked Special Diet Not Asked Back Care Not Asked Exercise Not Asked Bike Helmet Not Asked Seat Belt Yes Self-Exams Not Asked Social History Narrative 1 cat in her home. Possible mold in apartment. Originally from [place]. Lived in [place] for period. Goes to [employer] shows Social Needs Financial Resource Strain: Low Risk (11/13/2023) Financial Resource Strain Do you have any trouble paying for your medications, or do you think you might in the future? (Adult - for ages 18 years and over): No Does your family have trouble paying for medicine? (Household - for ages 0-17 years): Not on file Food Insecurity: No Food Insecurity (11/13/2023) Food Insecurity Do you need food for this week? (Adult - for ages 18 years and over): No Are you able to get enough food for your family? (Household - for ages 0-17 years): Not on file Does your family need food this week? (Household - for ages 0-17 years): Not on file Do you always have enough food for your family? (Household - for ages 0-17 years): Not on file Recent Concern: Food Insecurity - Food Insecurity Present (11/13/2023) Hunger Vital Sign Worried About Running Out of Food in the Last Year: Sometimes true Ran Out of Food in the Last Year: Sometimes true Transportation Needs: No Transportation Needs (11/13/2023) Transportation Needs Do you have trouble getting a ride to medical visits or work? (Adult - for ages 18 years and over):Never True Does your family have a hard time getting a ride to doctors visits? (Household - for ages 0-17 years): Not on file Has lack of transportation kept you from medical appointments, meetings, work, or from getting things needed for daily living? Check all that apply. (Adult - for ages 18 years and over): Not on file Do you (or your family) have trouble finding or paying for a ride (transportation)? (Household - for ages 0-17 years): Not on file Social Connections: Socially Isolated (11/13/2023) Social Connections How often do you feel lonely or isolated from those around you? (Adult - for ages 18 years and over): Often Housing Stability: Low Risk (11/13/2023) Housing Stability Do you currently live in a senior living or have no steady place to sleep at night? (Adult - for ages 18 years and over): No Do you think you are at risk of becoming homeless? (Adult - for ages 18 years and over): No Does your family worry about paying for your home or becoming homeless? (Household - for ages 0-17 years): Not on file Are you homeless or worried that you might be in the future? (Adult - for ages 18 years and over): Not on file Are you (or your family) homeless or worried that you might be in the future? (Household - for ages0-17 years): Not on file Review of Systems Constitutional: Negative for chills and fever. HENT: Positive for congestion. Negative for sore throat. Eyes: Negative for photophobia and itching. Respiratory: Negative for apnea, cough, shortness of breath and wheezing. Cardiovascular: Negative for chest pain and palpitations. Gastrointestinal: Negative for abdominal distention, abdominal pain, nausea and vomiting. Genitourinary: Negative for dysuria and frequency. Musculoskeletal: Negative for arthralgias and myalgias. Skin: Negative for pallor and rash. Neurological: Negative for dizziness, light-headedness and headaches. Psychiatric/Behavioral: Negative for sleep disturbance. The patient is not nervous/anxious. Objective BP 110/68 (BP Site: Left Arm, BP Position: Sitting, BP Cuff Size: Regular) | Pulse 84 | Temp 37.7 C (99.9 F) (Tympanic) | Ht 1.626 m (5' 4.02") | Wt 75 kg (165 lb 4.8 oz) | SpO2 98% | BMI 28.36 kg/m | BSA 1.84 m Physical Exam Constitutional: General: She is not in acute distress. Appearance: She is not ill-appearing. HENT: Head: Normocephalic and atraumatic. Right Ear: Tympanic membrane, ear canal and external ear normal. Left Ear: Tympanic membrane, ear canal and external ear normal. Nose: Nose normal. No congestion or rhinorrhea. Comments: Previous congestion improved. Less postnasal drip Mouth/Throat: Mouth: Mucous membranes are moist. Pharynx: Oropharynx is clear. Eyes: General: No scleral icterus. Extraocular Movements: Extraocular movements intact. Conjunctiva/sclera: Conjunctivae normal. Pupils: Pupils are equal, round, and reactive to light. Cardiovascular: Rate and Rhythm: Normal rate and regular rhythm. Pulses: Normal pulses. Heart sounds: Normal heart sounds. No murmur heard. No friction rub. No gallop. Pulmonary: Effort: Pulmonary effort is normal. No respiratory distress. Breath sounds: Normal breath sounds. No wheezing, rhonchi or rales. Abdominal: General: Bowel sounds are normal. There is no distension. Palpations: Abdomen is soft. There is no mass. Tenderness: There is no abdominal tenderness. There is no right CVA tenderness or left CVA tenderness. Musculoskeletal: General: No deformity. Normal range of motion. Cervical back: Normal range of motion and neck supple. Right lower leg: No edema. Left lower leg: No edema. Lymphadenopathy: Cervical: No cervical adenopathy. Skin: General: Skin is warm and dry. Coloration: Skin is not jaundiced. Findings: No rash. Neurological: General: No focal deficit present. Mental Status: She is oriented to person, place, and time. Cranial Nerves: No cranial nerve deficit. Sensory: No sensory deficit. Motor: No weakness. Psychiatric: Mood and Affect: Mood normal. Behavior: Behavior normal. Latest Reference Range & Units 04/05/24 11:58 SODIUM 135 - 146 mmol/L 139 POTASSIUM 3.5 - 5.1 mmol/L 5.0 CHLORIDE 98 - 107 mmol/L 102 CO2 22 - 32 mmol/L 24 BUN 6 - 20 mg/dL 9 CREATININE 0.5 - 1.0 mg/dL 0.8 EGFR >=60 mL/min >90 ANION GAP 7 - 15 mmol/L 13 GLUCOSE 70 - 120 mg/dL 84 CALCIUM 8.4 - 10.2 mg/dL 10.1 Protein 6.0 - 8.3 g/dL 7.3 Estimated Average Glucose <126 mg/dL 117 Hemoglobin A1C 4.0 - 5.6 % 5.7 (H) TSH 0.27 - 4.20 uIU/mL 1.14 TSH WITH FREE T4 IF INDICATED Rpt CBC Rpt ! WBC 4.00 - 10.80 K/uL 12.27 (H) RBC 3.85 - 5.15 M/uL 4.77 HGB 12.0 - 15.3 g/dL 15.2 HCT 36.0 - 45.2 % 46.0 (H) MCV 81.5 - 97.5 fL 96.4 MCH 27.0 - 34.0 pg 31.9 MCHC 32.0 - 36.0 g/dL 33.0 RDW 11.5 - 15.5 % 13.3 PLT 140 - 400 K/uL 356 MPV 6.6 - 11.1 fL 10.0 CBC WITH WBC DIFFERENTIAL Rpt ! Absolute Neutrophils 1.80 - 7.70 K/uL 8.64 (H) Absolute Lymphocytes 1.00 - 4.80 K/ul 2.49 Absolute Monocytes 0.00 - 1.10 K/uL 0.94 Absolute Eosinophils 0.00 - 0.70 K/uL 0.17 Absolute Basophils 0.00 - 0.20 K/uL 0.03 Albumin 3.8 - 5.0 g/dL 4.9 AST 10 - 35 U/L 18 ALT 10 - 35 U/L 17 Alkaline Phosphatase 35 - 130 U/L 103 Bilirubin, Total <=1.2 mg/dL 0.2 (H): Data is abnormally high !: Data is abnormal Rpt: View report in Results Review for more information ASSESSMENT/PLAN: Tobacco use disorder (Primary) - Varenicline Tartrate 1 MG Oral Tablet (Chantix); Take 1 Tablet by mouth in the morning. 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 Feeling well overall. Has been tolerating Chantix/far but still having some cravings. Unable to completely stop cigaretteuse. Would like to increase Chantix to 1 mg daily. Counseled on common side effects which to monitor Again reviewed labs including CMP, CBC, A1c, thyroid. All looked fine. Mild elevation in WBCs related to chronic steroid use Patient is still considering if he would like hep B vaccine. Would like to discuss further at next appointment. Defers other vaccine recommendations at this time Follow-up with Endocrinology as scheduled in regards to CAH. Continue methylprednisolone 4 mg a.m./2 mg p.m.. Continue fludrocortisone 0.1 mg daily Follow Up: Return in about 3 months (around 08/03/2024), or if symptoms worsen or fail to improve, for Return with Physician. | For: Return with Physician | Check-out note: 3 month follow up for recheck Anjel Mansfield DO documented in this encounter Nursing Notes * Vandana Dennis CMA - 05/03/2024 4:15 PM EST Tg Estrada presents for 1 month recheck. She denies any new concerns at this time. Medications & HM reviewed. documented in this encounter Plan of Treatment Upcoming Encounters Date Type Department Care Team (Late st Contact Info) Description 07/20/2024 8:20 AM EST Telemedicine Endocrinology, [place] [address] [place] [address] Carmencita Childress MD [address] [place] [address] 08/06/2024 4:40 PM EST Office Visit General Internal Medicine [facility] [address] [place] [address] Anjel Mansfield DO [address] [facility] [address] 10/14/2024 10:20 AM EDT Office Visit Pulmonary Medicine, [facility] [address] [place] [address] John Jolly MD [address] [place] [id number] Health Maintenance Due Date Last Done Comments [...] 5 Years) and At-Risk Patients (6 to 64 Years) Completed 03/25/2022, 11/20/2016 HPV (Gardasil) Vaccine Aged Out No lo nger eligible based on patient's age to complete this topic MENINGOCOCCAL (MENACTRA/MENVEO) Aged Out No longer eligible based on patient's age to complete this topic documented as of this encounter Medical Devices Not on filedocumented as of this encounter Visit Diagnoses Diagnosis Tobacco use disorder- Primary Vaccine for viral hepatitis Need for prophylactic vaccination and inoculation against viral hepatitis 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
--- OUTSIDE RECORDS SUMMARY | 2024-08-31 02:56 | External Medical Summary | Summary of Care ---
Author Name Unknown Organization [facility] Address [address] [place] [address] Phone [phone] Care Team Providers Care Stapler Coil Unit Name Role Phone Cordell Rosas DO Primary Care Provider [phone] Reason for Visit * Reason Onset Date Comments Advice 08/06/2024 Encounter Details Date Type Department Care Team (Late st Contact Info) Description 08/06/2024 Telephone Access Center, [place] [facility] [address] [facility] *DO NOT REMOVE THIS DEPARTMENT* [place] [address] Services, Scheduling [address] [place] [address] Advice Allergies Active Allergy Reactions Criticality Noted [...] ff 05/22/2023 Food insecurity 11/25/2022 Overview: Per [facility] Protocol Anxiety and depression 08/14/2022 History [...] (Oral) 03/10/1985,11/14 Pneumococcal Conjugate Vacci ne, 20-valent ([id number]) 03/25/2022 Pneumococcal Polysaccharide PPV23 (Pneumovax) 11/20/2016 Seasonal [...] - 08/13/2024 11:19 AM EST Leslie ( [facility] ) calling requesting to speak with someone regarding this matter please contact Leslie @ [phone] * Telephone Encounter - Shubham Bey DO - 08/06/2024 12:[address] Childress pt Return not new Also per 07/21/24 pt email I will not be able to keep our appointment tomorrow due to having lost my medicaid coverage. I was able to get into [facility] to start getting care [...] 09/09/2024 9:15 AM EDT Office Visit Orthopaedics [facility] [address] [place] [phone] Mario Mackey, [address] [place] [address] 10/14/2024 11:30 AM EDT Office Visit Pulmonary Medicine, [facility] [address] [place] [address] John Jolly MD [address] [facility] [place] [address] Health Maintenance Due Date Last Done Comments [...] filedocumented as of this encounter Care Teams Stapler Coil Unit Relationship Specialty Start Date End Date Cordell Rosas DO [address] [place] [address] PCP - General Family Medicine 03/11/24 documented as of this encounter
--- OUTSIDE RECORDS SUMMARY | 2024-08-31 02:56 | External Medical Summary | Summary of Care ---
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 Active Albuterol Sulfate HFA 108 (90 Base) MCG/ACT Inhalation Aerosol SolutionIndication s:Bronchitis, complicated Inhale 2 Puffs by mouth every 4 hours as needed for Wheezing. 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 20 Tablet 12/01/2023 Active Baclofen 10 MG Oral Tablet (Lioresal)Indicati ons:Cervical radiculopathy due to degenerative joint disease of spine,Osteoarthrit is of left AC (acromioclavicular ) joint Take 1 Tablet by mouth in the morning and 1 Tablet before bedtime. 40 Tablet 1 12/01/2023 Active Vitamin D3 50 MCG (1999 UT) Oral Capsule TAKE 1 CAPSULE BY MOUTH EVERY MORNING 90 Capsule 1 01/27/2024 Active Doxycycline Hyclate 100 MG Oral CapsuleIndications :Acute non-recurrent maxillary sinusitis Take 1 Capsule by mouth in the morning and 1 Capsule before bedtime. Do all this for 10 days. Until gone.. 20 Capsule 04/05/2024 04/15/20 24 Active Benzonatate 200 MG Oral CapsuleIndications :Acute non-recurrent maxillary sinusitis Take 1 Capsule by mouth 3 times a day as needed for Cough. 50 Capsule 1 04/05/2024 Active Varenicline Tartrate 0.5 MG Oral Tablet (Chantix)Indicatio ns:Tobacco use disorder Take 1 Tablet by mouth in the morning. 30 Tablet 04/05/2024 Active Diclofenac Sodium 75 MG Oral Tablet Delayed Release (Voltaren)Indicati ons:Cervical radiculopathy due to degenerative joint disease of spine,Osteoarthrit is of left AC (acromioclavicular ) joint Take 1 Tablet by mouth in the morning and 1 Tablet before bedtime. With food.. 60 Tablet 3 12/01/2023 04/05/20 24 Discontinu ed(Medicat ion List Clean Up) Nicotine 21 MG/24HR Transdermal Patch 24 Hour (Nicoderm CQ)Indications:His tory of tobacco use Place 1 Patch over 24 hours topically on the skin daily. For 6 weeks. 42 Patch 12/02/2023 04/05/20 24 Discontinu ed(Medicat ion List Clean Up) Hospital, Clinic, or Other Facility Administered Medication Ordered Dose Route Frequency Start Date End Date Status Albuterol Sulfate (Proventil) (5 MG/ML) 0.5% *conc* inhalation solution 2.5 mgIndications:Chronic cough,Hilar lymphadenopathy,Congeni cassidy adrenal hyperplasia due to 99-vkpn-zzxtuqmuora deficiency (HCC) 2.5 mg NEBULIZER PRN 07/16/2023 07/15/2024 Active Albuterol Sulfate (Proventil) (2.5 MG/3ML) 0.083% inhalation solution 2.5 mgIndications:Chronic cough,Hilar lymphadenopathy,Congeni cassidy adrenal hyperplasia due to 25-plru-fycvcspxsos deficiency (HCC) 2.5 mg NEBULIZER PRN 07/16/2023 07/15/2024 Active documented as of this encounter (statuses as of 04/05/2024) Active Problems Problem Noted Date Diagnosed Date DRE (generalized anxiety disorder) 12/19/2023 Nontraumatic incomplete tear of right rotator cu ff 05/22/2023 Food insecurity 11/25/2022 Overview: Per [facility] Protocol Anxiety and depression 08/14/2022 History of tobacco use 05/29/2022 Thoracic back pain 04/28/2017 Lumbar spine pain 04/28/2017 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 DDD (degenerative disc disease), lumbar Chronic back pain Overview: back injury documented as of this encounter (statuses as of 04/05/2024) Resolved Problems Problem Noted Date Diagnosed Date Resolved Date Major depressive disorder, r ecurrent episode, moderate 12/19/2023 02/09/2024 History of congenital adrenal hyperplasia 10/02/2023 10/02/2023 Heroin withdrawal 03/01/2017 03/16/2018 Right foot pain 10/15/2016 10/02/2023 Pain of right lower leg 10/15/201609/14 Adrenogenital disorder 12/24/200407/29 documented as of this encounter (statuses as of 04/05/2024) Immunizations Name Administration Dates Next Due DTP Vaccine 08/03/1985,03/10/1985,1984 HEPATITIS B VACCINE, RECOMB, 20 MCG/ML, ADULT (HEPLISAV-B) 07/23/2023 Hepatitis B, 20+ yrs 10/02/2023 OPV - Polio Virus Vaccine (Oral) 03/10/1985,11/14 Pneumococcal Conjugate Vacci ne, 20-valent ([id number]) 03/25/2022 Pneumococcal Polysaccharide PPV23 (Pneumovax) 11/20/2016 Seasonal Influenza Vac., MDV , IM, 0.5 mL (Fluzone) 04/16/2011 Seasonal Influenza Virus Vac cine, Unspecified Formulation 04/16/2011 TDAP (age 10 and older)(Boostrix) 09/05/2018, documented as of this encounter Social History Tobacco Use Types Packs/Day Years Used Date Smoking Tobacco: Every Day Cigarettes 1.5 23 Smokeless Tobacco: Never Tobacco Cessation:Ready to Q uit: Not Asked; Counseling Given: Not Answered Comments:currently smoking 5-10 cig/day. 5-10 cpd smoker 10/15/23 Alcohol Use [...] ages 0-17 years) Not on file 11/13/2023 Sex and Gender Information Value Date Recorded Sex Assigned at Female 04/21/2020 9:12 AM EST Gender Identity Female 04/21/2020 9:12 AM EST Sexual Orientation Lesbian 04/21/2020 9: 12 AM EST Job Start Date Occupation Industry Not on file Not on file Not on file documented as of this encounter Last Filed Vital Signs Vital Sign Reading Time Taken Comments Blood Pressure 108/70 04/05/2024 11:20 AM EDT Pulse 86 04/05/2024 11:20 AM EDT Temperature 36.9 C (98.5 F) 04/05/2024 1 1:20 AM EDT Respiratory Rate - - Oxygen Saturation 99% 04/05/2024 11: 20 AM EDT Inhaled Oxygen Concentration - - Weight 75.6 kg (166 lb 11.2 oz) 024 11:20 AM EDT Height 162.6 cm (5' 4.02") 04/05/2024 1 1:20 AM EDT Body Mass Index 28.6 04/05/2024 11:20 AM EDT documented in this encounter Progress Notes * Anjel Mansfield, DO - 04/05/2024 11:15 AM EDT Subjective Tg Estrada is a 38 year old female. Chief Complaint Patient presents with Cough Congestion Headache Text in this note was generated using an ambient documentation service. I discussed the use of a device to record and summarize our discussion today. All persons present during the encounter consented to its use. 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 She reports that the cough has been so severe that it has exacerbated her back pain. She also describes significant sinus pressure, but denies any noticeable ear pain or pressure. She has noticed ringing in her ears over the past year. She denies any wheezing or shortnessof breath beyond her usual baseline. She has been experiencing fluctuations in body temperature, alternating between feeling the need for a hoodie and blankets and just sweatpants and a t-shirt. She also reports night sweats and becoming a 'hot sleeper' over the past year. No obvious COVID-19 exposures. As she does work at one of the [employer], does note that some of the residents have beensick as of recent The patient has a history of smoking and has been unsuccessful in quitting despite attempts with nicotine patches. She expresses a desire to quit smoking and inquire about Chantix. She also reports aprolonged menstrual period lasting two weeks and ongoing pain that has not been relieved by ibuprofen, Tylenol, or Midol. She has been using medical marijuana and NyQuil to aid in sleep. She was recently treated for an upper respiratory infection with antibiotics. Does have known history of congenital adrenal hyperplasia. Followed by [facility]. Is maintained on methylprednisolone as well as fludrocortisone. 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 Albuterol Sulfate HFA 108 (90 Base) MCG/ACT Inhalation Aerosol Solution Inhale 2 Puffs by mouth every 4 hours as needed for Wheezing. 18 g 5 Fludrocortisone Acetate 0.1 MG Oral Tablet (Florinef) [...] 40 Tablet 1 Vitamin D3 50 MCG (2000 UT) Oral Capsule TAKE 1 CAPSULE BY MOUTH EVERY MORNING 90 Capsule 1 Doxycycline Hyclate 100 MG Oral Capsule Take 1 Capsule by mouth in the morning and 1 Capsule beforebedtime. Do all this for 10 days. Until gone.. 20 Capsule 0 Benzonatate 200 MG Oral Capsule Take 1 Capsule by mouth 3 times a day as needed for Cough. 50 Capsule 1 Varenicline Tartrate 0.5 MG Oral Tablet (Chantix) Take 1 Tablet by mouth in the morning. 30 Tablet 0 dexAMETHasone Sodium Phosphate 4 MG/ML Injection Solution (Decadron) Inject 4 mg into a large muscle as needed for Other (adrenal flare). 1 mL 3 Syringe 22G X 1-1/2" 3 ML Use with dexamethasone if adrenal crisis 5 Each 3 Current Facility-Administered Medications Medication Dose Route Frequency Provider Last Rate Last Admin Albuterol Sulfate (Proventil) (5 MG/ML) 0.5% *conc* inhalation solution 2.5 mg 2.5 mg Nebulizer John Seals MD Albuterol Sulfate (Proventil) (2.5 MG/3ML) 0.083% inhalation solution 2.5 mg 2.5 mg Nebulizer PRN John Jolly MD 2.5 mg at 07/30/23 [...] file Occupational History Occupation: [employer] Comment: [employer] Tobacco Use Smoking status: Every Day [...] home. Possible mold in apartment. Originally from [place]. Lived in [place] for period. Goes to [employer] Social Determinants of Health Financial Resource Strain: Low Risk (11/13/2023) Financial [...] Stability Do you currently live in a assisted or have no steady place to sleep [...] Not on file Review of Systems Constitutional: Positive for fatigue. Negative for chills and fever. HENT: Positive for congestion, postnasal drip, sinus pressure and sinus pain. Negative for sore throat. Eyes: Negative for photophobia and itching. Respiratory: Positive for cough. Negative for apnea, choking, chest tightness, shortness of breath and wheezing. Cardiovascular: Negative for chest pain and palpitations. Gastrointestinal: Negative for abdominal distention, abdominal pain, nausea and vomiting. Genitourinary: Negative for dysuria and frequency. Musculoskeletal: Negative for arthralgias, myalgias and neck stiffness. Skin: Negative for pallor and rash. Neurological: Negative for dizziness, light-headedness and headaches. Psychiatric/Behavioral: Negative for sleep disturbance. The patient is not nervous/anxious. Objective BP 108/70 | Pulse 86 | Temp 36.9 C (98.5 F) | Ht 1.626 m (5' 4.02") | Wt 75.6 kg (166 lb 11.2 oz) | SpO2 99% | BMI 28.60 kg/m | BSA 1.85 m Physical Exam Constitutional: General: She is not in acute distress. Appearance: She is not ill-appearing. HENT: Head: Normocephalic and atraumatic. Right Ear: Tympanic membrane, ear canal and external ear normal. Left Ear: Tympanic membrane, ear canal and external ear normal. Nose: Congestion and rhinorrhea present. Comments: Tender maxillary area bilaterally Mouth/Throat: Mouth: Mucous membranes are moist. Pharynx: Oropharynx is clear. Comments: Large amount of thick postnasal drip Eyes: General: No scleral icterus. Extraocular Movements: Extraocular movements intact. Conjunctiva/sclera: Conjunctivae normal. Pupils: Pupils are equal, round, and reactive to light. Cardiovascular: Rate and Rhythm: Normal rate and regular rhythm. Pulses: Normal pulses. Heart sounds: Normal heart sounds. No murmur heard. No friction rub. No gallop. Pulmonary: Effort: Pulmonary effort is normal. Breath sounds: Normal breath sounds. No wheezing, [...] and Affect: Mood normal. Behavior: Behavior normal. ASSESSMENT/PLAN: Acute non-recurrent maxillary sinusitis (Primary) - XR CHEST 2 VIEWS - Doxycycline Hyclate 100 MG Oral Capsule; Take 1 Capsule by mouth in the morning and 1 Capsule before bedtime. Do all this for 10 days. Until gone.. - Benzonatate 200 MG Oral Capsule; Take 1 Capsule by mouth 3 times a day as needed for Cough. Tobacco use disorder - Varenicline Tartrate 0.5 MG Oral Tablet (Chantix); Take 1 Tablet by mouth in the morning. 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 No ear pain or pressure. No wheezing or shortness of breath. Intermittent fever. Recent antibiotic treatment for upper respiratory infection 3 weeks ago. -Prescribe Doxycycline 1 capsule twice daily for 10 days. -Prescribe Benzonatate cough tablets up to 3 times a day as needed. -Check Cmp, CBC, A1c, Thyroid to evaluate -CXR to eval for other cause of prolonged cough Nicotine Dependence Current smoker with a pack a day habit. Failed nicotine patch therapy. Expressed interest in Chantix. -Start Chantix at 0.5mg daily for a month. If cravings persist, consider increasing to 1mg daily. Monitor for side effects including mood changes and vivid dreams. Night Sweats - likely related to sinusitis Reports becoming a "hot sleeper" over the past year, waking up with soaked clothing. No heavy blankets used. -Order blood work to investigate potential causes of night sweats. Order CXR Follow Up: Return in about 4 weeks (around 05/03/2024) for Return with Physician. | For: Return with Physician | Check-out note: Follow up 4-6 weeks for recheck Follow up pending test results Labs and CXR today I spent a total of 30-39 minutes (exact time 37 mins) on the date of service in preparation, delivery, and documentation of the care provided to Tg Estrada excluding any time spent in the performance of separately billed services or time spent by another provider/QHP. Anjel Mansfield DO documented in this encounter Nursing Notes * Vandana Dennis CMA - 04/05/2024 11:08 AM EDT Patient presents today with complaints of swollen, tender lymph nodes, painful, productive cough with thick mucus, severe sinus congestion and pressure and extreme fatigue x 4 days. Denies any fever or chills. Would also like to discuss smoke cessation. Had tried nicotine patches but they aren't working so she would like to discuss chantix. documented in this encounter Plan of Treatment Upcoming Encounters Date Type Department Care Team (Late st Contact Info) Description 04/29/2024 3:30 PM EST Office Visit Orthopaedics [address] [place] [address] Slava Kennedy PA-C [facility] [employer] [place] [address] 05/03/2024 4:00 PM EST Office Visit General Internal Medicine [facility] [address] [facility] [place] [address] Anjel Mansfield DO [address] [facility] [place] [address] 10/14/2024 10:20 AM EDT Office Visit Pulmonary Medicine, [facility] [address] [facility] [place] [address] John Jolly MD [address] [place] [address] Pending Results Name Type Priority Associated Diagnoses Date/Time XR CHEST 2 VIEWS Medical Imaging Routine Acute non-recurrent maxillary sinusitis Persistent cough 04/05/2024 12:04 PM EDT COMPREHENSIVE METABOLIC PANEL Lab Routine Night sweat 04/05/2024 11:58 AM EDT HEMOGLOBIN A1C Lab Routine Night sweat 04/05/2024 11:58 AM EDT TSH WITH FREE T4 IF INDICATED Lab Routine Night sweat 04/05/2024 11:58 AM EDT Scheduled Orders Name Type Priority Associated Diagnoses Orde r Schedule COMPREHENSIVE METABOLIC PANEL Lab Routine Night sweat Expected: 04/05/2024 (Approximate), Expires: 04/05/2025 HEMOGLOBIN A1C Lab Routine Night sweat Expected: 04/05/2024 (Approximate), Expires: 04/05/2025 TSH WITH FREE T4 IF INDICATED Lab Routine Night sweat Expected: 04/05/2024 (Approximate), Expires: 04/05/2025 Health Maintenance Due Date Last Done Comments Pap Smear 2005 Cervical Cancer Screening 2014 HPV/Co-Test 2014 Hepatitis B Vaccine (3 of 3 - 19+ 3-dose series) 01/21/2024 10/02/2023, 07/23/2023 COVID-19 Vaccine ( season) 2024 Influenza Vaccine (FLU shot) (#1) 2024 04/16/2011, 04/16/2011 Depression Monitoring 01/20/2025 01/21/2024 Diabetes Screening 03/11/2027 03/11/2024, 0 11/13/2023, 07/14/2023, Additional history exists DTap/Tdap Vaccines (6 - [...] as of this encounter Visit Diagnoses Diagnosis Acute non-recurrent maxillary sinusitis- Primary Tobacco use disorder Persistent cough Cough Night sweat 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
--- OUTSIDE RECORDS SUMMARY | 2024-08-31 02:56 | External Medical Summary | Summary of Care ---
Author Name Unknown Organization [facility] Address [address] [place] [address] Phone [phone] Care Team Providers Care Return Clerk Name Role Phone Cordell Rosas DO Primary Care Provider [phone] Reason for Visit * Reason Onset Date Comments Advice 08/06/2024 Encounter Details Date Type Department Care Team (Late st Contact Info) Description 08/06/2024 Telephone Access Center, [place] [address] [facility] *DO NOT REMOVE THIS DEPARTMENT* [place] [address] Services, Scheduling [address] [place] [address] Advice Allergies Active Allergy Reactions Criticality Noted [...] ff 05/22/2023 Food insecurity 11/25/2022 Overview: Per [facility] Protocol Anxiety and depression 08/14/2022 History [...] (Oral) 03/10/1985,11/14 Pneumococcal Conjugate Vacci ne, 20-valent ([id number]) 03/25/2022 Pneumococcal Polysaccharide PPV23 (Pneumovax) 11/20/2016 Seasonal [...] encounter Miscellaneous Notes * Telephone Encounter - Sharri Santana OSA - 08/13/2024 11:19 AM EST Leslie ( [facility] ) calling requesting to speak with someone regarding this matter please contact Leslie @ [phone] * Telephone Encounter - Shubham Bey DO - 08/06/2024 12:[address] Childress pt Return not new Also per 07/21/24 pt email I will not be able to keep our appointment tomorrow due to having lost my medicaid coverage. I was able to get into [facility] to start getting care [...] 09/09/2024 9:15 AM EDT Office Visit Orthopaedics [facility] [address] [place] [id number] Mario Mackey, [address] [place] [address] 10/14/2024 11:30 AM EDT Office Visit Pulmonary Medicine, [facility] [address] [place] [address] John Jolly MD [address] [place] [address] Health Maintenance Due Date Last Done Comments [...] filedocumented as of this encounter Care Teams Return Clerk Relationship Specialty Start Date End Date Cordell Rosas DO [address] [place] [address] PCP - General Family Medicine 03/11/24 documented as of this encounter
--- OUTSIDE RECORDS SUMMARY | 2024-08-31 02:56 | External Medical Summary | Summary of Care ---
Author Name Unknown Organization [facility] Address [address] [place] [address] Phone [phone] Care Team Providers Care Scientific Informatics Leader Name Role Phone Cordell Rosas DO Primary Care Provider [phone] Reason for Referral * Evaluate & Treat - Unlimited Visits (Within 10 days (routine)) - Pending Review Specialty Diagnoses / Procedures Referred By [place] Referred To Contact Orthopaedic Surgery / Orthopedics Diagnoses Shoulder joint pain Ania Davidson DO [address] [place] [address] Phone: tel: fax: Referral ID Status Reason Start Date Expiration Date Visits Requested Visits Authorized [id number] Pending Review Specialty Services Required 08/06/[phone] Question Answer Referral Priority Within 10 days (routine) Where should this appointment be scheduled? [facility] What body part is the patient being seen for? Shoulder What condition is the patient being seen for? Sprain/Strain/Tear/Other Comments Notes scanned into epic 08/06/24 crb Encounter Details Date Type Department Care Team (Late st Contact Info) Description 08/06/2024 Orders Only Access [place], [place] [address] [address] [facility] *DO NOT REMOVE THIS DEPARTMENT* [place] [address] Request, External Referral Shoulder joint pain* Allergies Active Allergy Reactions Criticality Noted Date [...] ff 05/22/2023 Food insecurity 11/25/2022 Overview: Per [facility] Protocol Anxiety and depression 08/14/2022 History [...] (Oral) 03/10/1985,11/14 Pneumococcal Conjugate Vacci ne, 20-valent ([id number]) 03/25/2022 Pneumococcal Polysaccharide PPV23 (Pneumovax) 11/20/2016 Seasonal [...] 09/09/2024 9:15 AM EDT Office Visit Orthopaedics [facility] [address] [place] [phone] Mario Mackey DO [address] [place] [address] 10/14/2024 11:30 AM EDT Office Visit Pulmonary Medicine, [facility] [address] [place] [address] John Jolly MD [address] [place] [id number] Scheduled Referrals Name Type Priority Associated Diagnoses Order Schedule ORTHOPAEDICS REFERRAL OP Referral Within 10 days (routine) Shoulder joint pain Ordered: 08/06/2024 Health Maintenance Due Date Last Done Comments Pap Smear 2005 Cervical Cancer Screening 2014 HPV/Co-Test 2014 Hepatitis B Vaccine (3 of 3 - 19+ 3-dose series) 01/21/2024 10/02/2023, 07/23/2023 COVID-19 Vaccine ( - 2023- season) 2024 Influenza Vaccine (FLU shot) (#1) [...] as of this encounter Visit Diagnoses Diagnosis Shoulder joint pain- Primary Pain in joint, shoulder region documented in this encounter Care Teams Scientific Informatics Leader Relationship Specialty Start Date End Date Cordell Rosas DO [address] [place] [address] PCP - General Family Medicine 03/11/24 documented as of this encounter
--- OUTSIDE RECORDS SUMMARY | 2024-08-31 02:57 | External Medical Summary ---
Author Name Unknown Address Unknown Organization [id number]:LABORATORY [facility] - [address] [address] Laboratory Report Ordering Provider Test Date Status SAAD OTT 03/11/2024 09:51:45 Final Follicular phase: 2.4-12.6 m IU/mL
Ovulation phase: 14.0-95.6 mIU/mL
Luteal phase: 1.0-11.4 mIU/mL
Postmenopausal: 7.7-58.5 mIU/mL Observation Date Value Abnormality Reference (Units ) Status LH 03/11/2024 09:51:45 4.8 (mIU/mL) Final Performing Location LABORATORY [facility] - [address] [address]
--- OUTSIDE RECORDS SUMMARY | 2024-08-31 02:57 | External Medical Summary ---
Author Name Unknown Address Unknown Organization [id number]:LABORATORY [facility] [place] - [address] [facility] [address] Laboratory Report Ordering Provider Test Date Status ALIYAH MCNEILL 04/05/2024 11:58:18 Final Observation Date Value Abnormality Reference (Units ) Status HbA1C 04/05/2024 11:58:18 5.7 Above high normal 4. 0-5.6 (%) Final The use of HbA1c to monitor glycemic status is based on normal hemoglobin and HbA composition. This test should not be used in patients with abnormal hemoglobin that affects the half life of the red blood cell or the in vivo glycation rates. Glucose, estimated average 04/05/2024 11:58:18 117 <126 (mg/dL) Final Performing Location LABORATORY [facility] - [address] [place] [address]
--- OUTSIDE RECORDS SUMMARY | 2024-08-31 02:57 | External Medical Summary ---
Author Name Unknown Address Unknown Organization [id number]:[facility] [place] [address] Laboratory Report Ordering Provider Test Date Status ALIYAH MCNEILL 04/05/2024 11:58:18 Final Observation Date Value Abnormality Reference (Units ) Status SYNC LEUKOCYTES IN BLOOD BY AUTOMATED COUNT 04/05/2024 11:58:18 12.27 Above high normal 4.00-10.80 (K/uL) Final Segs 04/05/2024 11:58:18 70.4 40.0-75.0 (%) Final Lymphs % 04/05/2024 11:58:18 20.3 18.0-42.0 (%) Final Monos 04/05/2024 11:58:18 7.7 1.0-11.0 (%) Final Eosinophils 04/05/2024 11:58:18 1.4 0.0-6.0 (%) Final Basos 04/05/2024 11:58:18 0.2 0.0-2.0 (%) Final Absolute Segs 04/05/2024 11:58:18 8.64 Above high normal 1.80-7.70 (K/uL) Final Lymphs, absolute 04/05/2024 11:58:18 2.49 1.00-4.80 (K/ul) Final Monos, Abs 04/05/2024 11:58:18 0.94 0.00-1.10 (K/uL) Final Eos, Abs 04/05/2024 11:58:18 0.17 0.00-0.70 (K/uL) Final Basos, Abs 04/05/2024 11:58:18 0.03 0.00-0.20 (K/uL) Final Performing Location [facility] [address]
--- OUTSIDE RECORDS SUMMARY | 2024-08-31 02:57 | External Medical Summary | Summary of Care ---
Author Name Unknown Organization [facility] Address [address] [place] [address] Phone [phone] Care Team Providers Care Hoop Coiler Name Role Phone Cordell Rosas DO Primary Care Provider Encounter Details Date Type Department Care Team (Latest Contact Info) Description 10/01/2023 6:35 PM EDT - 10/01/2023 6:39 PM EDT Hospital Encounter Radiology Film File [address] [place] [address] Discharge Disposition: Home - Self Care Allergies Active Allergy Reactions Criticality Noted Date Comments Penicillins 01/01/2002 Silver 01/05/2016 documented as of this encounter (statuses as of 03/12/2024) Medications Medication Sig Dispensed Refills Start Date End Date Status Acetaminophen 500 MG Oral Tablet (Tylenol Extra Strength) Take 1 Tablet by mouth every 6 hours as needed. Active Albuterol Sulfate HFA 108 (90 Base) MCG/ACT Inhalation Aerosol SolutionIndications :Bronchitis, complicated Inhale 2 Puffs by mouth every 4 hours as needed for Wheezing. 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 1 mL 3 07/10/2023 Active Syringe 22G X 1-1/2" 3 ML Use with dexamethasone if adrenal crisis 5 Each 3 07/10/2023 Active Hospital, Clinic, or Other Facility Administered Medication Ordered Dose Route Frequency Start Date End Date Status Albuterol Sulfate (Proventil) (5 MG/ML) 0.5% *conc* inhalation solution 2.5 mgIndications:Chronic cough,Hilar lymphadenopathy,Congeni cassidy adrenal hyperplasia due to 96-xoqe-cxkuedvbdem deficiency (HCC) 2.5 mg NEBULIZER PRN 07/16/2023 07/15/2024 Active Albuterol Sulfate (Proventil) (2.5 MG/3ML) 0.083% inhalation solution 2.5 mgIndications:Chronic cough,Hilar lymphadenopathy,Congeni cassidy adrenal hyperplasia due to 27-fdxe-racywrchacv deficiency (HCC) 2.5 mg NEBULIZER PRN 07/16/2023 07/15/2024 Active documented as of this encounter (statuses as of 03/12/2024) Active Problems Problem Noted Date Diagnosed Date DRE (generalized anxiety disorder) 12/19/2023 Nontraumatic incomplete tear of right rotator cu ff 05/22/2023 Food insecurity 11/25/2022 Overview: Per [facility] Protocol Anxiety and depression 08/14/2022 History of tobacco use 05/29/2022 Thoracic back pain 04/28/2017 Lumbar spine pain 04/28/2017 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 DDD (degenerative disc disease), lumbar Chronic back pain Overview: back injury documented as of this encounter (statuses as of 03/12/2024) Resolved Problems Problem Noted Date Diagnosed Date Resolved Date Major depressive disorder, r ecurrent episode, moderate 12/19/2023 02/09/2024 History of congenital adrenal hyperplasia 10/02/2023 10/02/2023 Heroin withdrawal 03/01/2017 03/16/2018 Right foot pain 10/15/2016 10/02/2023 Pain of right lower leg 10/15/201609/14 Adrenogenital disorder 12/24/200407/29 documented as of this encounter (statuses as of 03/12/2024) Immunizations Name Administration Dates Next Due DTP Vaccine 08/03/1985,03/10/1985,1984 HEPATITIS B VACCINE, RECOMB, 20 MCG/ML, ADULT (HEPLISAV-B) 07/23/2023 OPV - Polio Virus Vaccine (Oral) 03/10/1985,11/14 Pneumococcal Conjugate Vacci ne, 20-valent ([id number]) 03/25/2022 Pneumococcal Polysaccharide PPV23 (Pneumovax) 11/20/2016 Seasonal Influenza Virus Vac cine, Unspecified Formulation 04/16/2011 Seasonal Influenza, Trivalen t, (IIV3), with Preserv, (Fluzone) 04/16/2011 TDAP (age 10 and older)(Boostrix) 09/05/2018, documented as of this encounter Social History Tobacco Use Types Packs/Day Years Used Date Smoking Tobacco: Every Day Cigarettes 1.5 23 Smokeless Tobacco: Never Comments:currently smoking 5 -10 cig/day Alcohol Use Standard Drinks/Week Comments Yes 0 [...] 04/29/2024 3:30 PM EST Office Visit Orthopaedics [facility] [address] [facility] [place] [address] Slava Kennedy PA-C [address] [place] [address] 10/14/2024 10:20 AM EDT Office Visit Pulmonary Medicine, [facility] [address] [facility] [place] [address] John Jolly MD [address] [place] [address] Health Maintenance Due Date Last Done Comments [...] Not on filedocumented as of this encounter Procedures Procedure Name Priority Date/Time Associated Diagnosis Comments RADIOLOGY EXAM - GENERAL RAD (IMAGES ONLY,NO REPORT) Routine 10/01/2023 6:35 PM EDT documented in this encounter Results * RADIOLOGY EXAM - GENERAL RAD (IMAGES ONLY,NO REPORT) (10/01/2023 6:35 PM EDT) 10/01/2023 6:35 PM EDT Narrative Scheduling, Silent - 03/11/2024 9:45 AM EDT This is an imaging study not interpreted or resulted by a [facility] or [facility] contracted radiologist. Slava Kennedy PA-C RADIOLOGY (R AD GENERAL) documented in this encounter Care Teams Hoop Coiler Relationship Specialty Start Date End Date Cordell Rosas DO [address] [facility] [place] [address] PCP - General Family Medicine 11/20/16 12/24/23 documented as of this encounter
--- OUTSIDE RECORDS SUMMARY | 2024-08-31 02:57 | External Medical Summary ---
Author Name Unknown Address Unknown Organization : Laboratory Report Ordering Provider Test Date Status SAAD OTT 03/11/2024 09:51:45 Final Observation Date Value Abnormality Reference (Units ) Status ANDROSTENEDIONE 03/11/2024 09:51:45 117 (ng/ dL) Final Adult Female Reference Range s for
Androstenedione:
Mid Follicular: 51- 213 ng/dL
Surge: 73-230 ng/dL
Mid Luteal: 73-184 ng/dL
Postmenopausal Phase: 20-75 ng/dL
This test was developed and its analytical
performance characteristics have been determined
by [facility]. It has not been cleared or
approved by FDA. This assay has been validated
pursuant to the CLIA regulations and is used for
clinical purposes.
Test performed by [facility]
[id number],
[place] [address]

Hvac Estimator: Shannen Bolaños MD,PHD,BIBI
Test Reported by [facility],
[employer] [place],
[address] [place], [place]
Marco A Cartwright M.D., Ph.D., Director of Laboratories
, CLIA [id number] Performing Location
--- OUTSIDE RECORDS SUMMARY | 2024-08-31 02:57 | External Medical Summary | Summary of Care ---
Author Name Unknown Organization [facility] Address [address] [place] [address] Phone [phone] Care Team Providers Care Learning Technologist Name Role Phone Cordell Rosas DO Primary Care Provider Encounter Details Date Type Department Care Team (Latest Contact Info) Description 10/01/2023 6:30 PM EDT - 10/01/2023 6:34 PM EDT Hospital Encounter Radiology Film File [address] [place] [address] Discharge Disposition: Home - Self [...] cough,Hilar lymphadenopathy,Congeni cassidy adrenal hyperplasia due to 41-objt-ylhqciuuiad deficiency (HCC) 2.5 mg NEBULIZER PRN 07/16/2023 07/15/2024 Active Albuterol Sulfate (Proventil) (2.5 MG/3ML) 0.083% inhalation solution 2.5 mgIndications:Chronic cough,Hilar lymphadenopathy,Congeni cassidy adrenal hyperplasia due to 41-ugui-zdoifpxupan deficiency (HCC) 2.5 mg NEBULIZER PRN 07/16/2023 07/15/2024 Active documented as of this encounter (statuses as of 03/12/2024) Active Problems Problem Noted Date Diagnosed Date DRE (generalized anxiety disorder) 12/19/2023 Nontraumatic incomplete tear of right rotator cu ff 05/22/2023 Food insecurity 11/25/2022 Overview: Per [facility] Protocol Anxiety and depression 08/14/2022 History [...] (Oral) 03/10/1985,11/14 Pneumococcal Conjugate Vacci ne, 20-valent ([id number]) 03/25/2022 Pneumococcal Polysaccharide PPV23 (Pneumovax) 11/20/2016 Seasonal [...] 04/29/2024 3:30 PM EST Office Visit Orthopaedics [facility] [address] [facility] [place] [address] Slava Kennedy PA-C [address] [place] [address] 10/14/2024 10:20 AM EDT Office Visit Pulmonary Medicine, [facility] [address] [facility] [place] [address] John Jolly MD [address] [place] [address] Health Maintenance Due Date Last Done Comments [...] GENERAL RAD (IMAGES ONLY,NO REPORT) Routine 10/01/2023 6:30 PM EDT documented in this encounter Results * RADIOLOGY EXAM - GENERAL RAD (IMAGES ONLY,NO REPORT) (10/01/2023 6:30 PM EDT) 10/01/2023 6:28 PM EDT Narrative Scheduling, Silent - 03/11/2024 11:51 AM EDT This is an imaging study not interpreted or resulted by a [facility] or [facility] contracted radiologist. Slava Kennedy PA-C RADIOLOGY (R AD GENERAL) documented in this encounter Care Teams Learning Technologist Relationship Specialty Start Date End Date Cordell Rosas DO [address] [facility] [place] [address] PCP - General Family Medicine 11/20/16 12/24/23 documented as of this encounter
--- OUTSIDE RECORDS SUMMARY | 2024-08-31 02:57 | External Medical Summary | Summary of Care ---
Author Name Unknown Organization [facility] Address [address] [place] [address] Phone [phone] Care Team Providers Care Visual Training Aide Name Role Phone Cordell Rosas DO Primary Care Provider [phone] Encounter Details Date Type Department Care Team (Late st Contact Info) Description 10/01/2023 Orders Only Orthopaedics, [facility] [address] [place] [address] OsosSlava owens PA-C [address] [place] [phone] Allergies Active Allergy Reactions Criticality Noted Date Comments Penicillins 01/01/2002 Silver 01/05/2016 documented as of this encounter (statuses as of 03/11/2024) Medications Medication Sig Dispensed Refills Start Date [...] cough,Hilar lymphadenopathy,Congeni cassidy adrenal hyperplasia due to 83-vyti-pzlanbofzim deficiency (HCC) 2.5 mg NEBULIZER PRN 07/16/2023 07/15/2024 Active Albuterol Sulfate (Proventil) (2.5 MG/3ML) 0.083% inhalation solution 2.5 mgIndications:Chronic cough,Hilar lymphadenopathy,Congeni cassidy adrenal hyperplasia due to 95-xawi-zjpqlluacsr deficiency (HCC) 2.5 mg NEBULIZER PRN 07/16/2023 07/15/2024 Active documented as of this encounter (statuses as of 03/11/2024) Active Problems Problem Noted Date Diagnosed Date DRE (generalized anxiety disorder) 12/19/2023 Nontraumatic incomplete tear of right rotator cu ff 05/22/2023 Food insecurity 11/25/2022 Overview: Per [facility] Protocol Anxiety and depression 08/14/2022 History of tobacco use 05/29/2022 Thoracic back pain 04/28/2017 Lumbar spine pain 04/28/2017 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 DDD (degenerative disc disease), lumbar Chronic back pain Overview: back injury documented as of this encounter (statuses as of 03/11/2024) Resolved Problems Problem Noted Date Diagnosed Date Resolved Date Major depressive disorder, r ecurrent episode, moderate 12/19/2023 02/09/2024 History of congenital adrenal hyperplasia 10/02/2023 10/02/2023 Heroin withdrawal 03/01/2017 03/16/2018 Right foot pain 10/15/2016 10/02/2023 Pain of right lower leg 10/15/201609/14 Adrenogenital disorder 12/24/200407/29 documented as of this encounter (statuses as of 03/11/2024) Immunizations Name Administration Dates Next Due DTP Vaccine 08/03/1985,03/10/1985,1984 HEPATITIS B VACCINE, RECOMB, 20 MCG/ML, ADULT (HEPLISAV-B) 07/23/2023 OPV - Polio Virus Vaccine (Oral) 03/10/1985,11/14 Pneumococcal Conjugate Vacci ne, 20-valent ([id number]) 03/25/2022 Pneumococcal Polysaccharide PPV23 (Pneumovax) 11/20/2016 Seasonal [...] 04/29/2024 3:30 PM EST Office Visit Orthopaedics [facility] [address] [place] [address] Slava Kennedy PA-C [address] [place] [address] 10/14/2024 10:20 AM EDT Office Visit Pulmonary Medicine, [facility] [address] [place] [address] John Jolly MD [address] [place] [address] [phone] Health Maintenance Due Date Last Done Comments Pap Smear 2005 Cervical Cancer Screening 2014 HPV/Co-Test 2014 Hepatitis B Vaccine (3 of 3 - 19+ 3-dose series) 01/21/2024 10/02/2023, 07/23/2023 COVID-19 Vaccine (1 - 2024-25 season) 2024 Influenza Vaccine (FLU shot) (#1) [...] GENERAL RAD (IMAGES ONLY,NO REPORT) Routine 10/01/2023 6:40 PM EDT documented in this encounter Results * RADIOLOGY EXAM - GENERAL RAD (IMAGES ONLY,NO REPORT) (10/01/2023 6:40 PM EDT) 10/01/2023 6:29 PM EDT Narrative Scheduling, Silent - 03/11/2024 12:07 PM EDT This is an imaging study not interpreted or resulted by a [facility] or [email or web address] contracted radiologist. Slava Kennedy PA-C RADIOLOGY (R AD GENERAL) documented in this encounter Care Teams Visual Training Aide Relationship Specialty Start Date End Date Cordell Rosas DO [address] [place] [address] PCP - General Family Medicine 03/11/24 documented as of this encounter
--- OUTSIDE RECORDS SUMMARY | 2024-08-31 02:57 | External Medical Summary | Summary of Care ---
Author Name Unknown Organization [facility] Address [address] [place] [address] Phone [phone] Care Team Providers Care Chainstitch Elastic Attacher Name Role Phone Cordell Rosas DO Primary Care Provider Encounter Details Date Type Department Care Team (Latest Contact Info) Description 10/01/2023 6:40 PM EDT - 10/01/2023 11:59 PM EDT Hospital Encounter Radiology Film File [address] [place] [address] Discharge Disposition: Home - Self [...] cough,Hilar lymphadenopathy,Congeni cassidy adrenal hyperplasia due to 70-dosy-zxpdfhhqvnt deficiency (HCC) 2.5 mg NEBULIZER PRN 07/16/2023 07/15/2024 Active Albuterol Sulfate (Proventil) (2.5 MG/3ML) 0.083% inhalation solution 2.5 mgIndications:Chronic cough,Hilar lymphadenopathy,Congeni cassidy adrenal hyperplasia due to 39-hxsk-aintwaiiujh deficiency (HCC) 2.5 mg NEBULIZER PRN 07/16/2023 07/15/2024 Active documented as of this encounter (statuses as of 03/12/2024) Active Problems Problem Noted Date Diagnosed Date DRE (generalized anxiety disorder) 12/19/2023 Nontraumatic incomplete tear of right rotator cu ff 05/22/2023 Food insecurity 11/25/2022 Overview: Per [facility] Protocol Anxiety and depression 08/14/2022 History [...] (Oral) 03/10/1985,11/14 Pneumococcal Conjugate Vacci ne, 20-valent ([id number]) 03/25/2022 Pneumococcal Polysaccharide PPV23 (Pneumovax) 11/20/2016 Seasonal [...] 04/29/2024 3:30 PM EST Office Visit Orthopaedics [facility] [address] [facility] [place] [address] Slava Kennedy PA-C [address] [place] [address] 10/14/2024 10:20 AM EDT Office Visit Pulmonary Medicine, [facility] [address] [facility] [place] [address] John Jolly MD [address] [place] [address] Health Maintenance Due Date Last Done Comments [...] interpreted or resulted by a [facility] or [facility] contracted radiologist. Slava Kennedy PA-C RADIOLOGY (R AD GENERAL) documented in this encounter Care Teams Chainstitch Elastic Attacher Relationship Specialty Start Date End Date Cordell Rosas DO [address] [facility] [place] [address] PCP - General Family Medicine 11/20/16 12/24/23 documented as of this encounter
--- OUTSIDE RECORDS SUMMARY | 2024-08-31 02:57 | External Medical Summary | Summary of Care ---
Author Name Unknown Organization [facility] Address [address] [place] [address] Phone [phone] Care Team Providers Care Flap Lining Binder Name Role Phone Cordell Rosas DO Primary Care Provider [phone] Encounter Details Date Type Department Care Team (Late st Contact Info) Description 10/01/2023 Orders Only Orthopaedics, [facility] [address] [place] [address] OsosSlava owens PA-C [address] [place] [phone] Allergies Active Allergy Reactions Criticality Noted Date [...] cough,Hilar lymphadenopathy,Congeni cassidy adrenal hyperplasia due to 40-skum-xxfsolyeehm deficiency (HCC) 2.5 mg NEBULIZER PRN 07/16/2023 07/15/2024 Active Albuterol Sulfate (Proventil) (2.5 MG/3ML) 0.083% inhalation solution 2.5 mgIndications:Chronic cough,Hilar lymphadenopathy,Congeni cassidy adrenal hyperplasia due to 58-bazv-peapagkulxz deficiency (HCC) 2.5 mg NEBULIZER PRN 07/16/2023 07/15/2024 Active documented as of this encounter (statuses as of 03/11/2024) Active Problems Problem Noted Date Diagnosed Date DRE (generalized anxiety disorder) 12/19/2023 Nontraumatic incomplete tear of right rotator cu ff 05/22/2023 Food insecurity 11/25/2022 Overview: Per [facility] Protocol Anxiety and depression 08/14/2022 [...] (Oral) 03/10/1985,11/14 Pneumococcal Conjugate Vacci ne, 20-valent ([id number]) 03/25/2022 Pneumococcal Polysaccharide PPV23 (Pneumovax) 11/20/2016 Seasonal [...] 04/29/2024 3:30 PM EST Office Visit Orthopaedics [facility] [address] [place] [address] Slava Kennedy PA-C [address] [place] [address] 10/14/2024 10:20 AM EDT Office Visit Pulmonary Medicine, [facility] [address] [place] [address] John Jolly MD [address] [place] [phone] Health Maintenance Due Date Last Done Comments Pap Smear 2005 Cervical Cancer Screening 2014 HPV/Co-Test 2014 Hepatitis B Vaccine (3 of 3 - 19+ 3-dose series) 01/21/2024 10/02/2023, 07/23/2023 COVID-19 Vaccine (2023-25 season) 2024 Influenza Vaccine (FLU shot) (#1) [...] interpreted or resulted by a [facility] or [facility] contracted radiologist. Slava Kennedy PA-C RADIOLOGY (R AD GENERAL) documented in this encounter Care Teams Flap Lining Binder Relationship Specialty Start Date End Date Cordell Rosas DO [address] [place] [address] PCP - General Family Medicine 03/11/24 documented as of this encounter
--- OUTSIDE RECORDS SUMMARY | 2024-08-31 02:57 | External Medical Summary | Summary of Care ---
Author Name Unknown Organization [facility] Address [address] [place] [address] Phone [phone] Care Team Providers Care Cogeneration Technician Name Role Phone Cordell Rosas DO Primary Care Provider [phone] Reason for Referral * Evaluate & Treat - Unlimited Visits (Within 3 days (urgent)) - Pending Review Specialty Diagnoses / Procedures Referred By Luz west Referred To Contact Physical Therapy / Physical Medicine And Rehab Diagnoses Tendinopathy of left rotator cuff Osteoarthritis of left glenohumeral joint Acute pain of left shoulder Impingement of left shoulder Slava Kennedy PA-C [address] [place] [address] Referral ID Status Reason Start Date Expiration Date Visits Requested Visits Authorized [id number] Pending Review Specialty Services Required 03/11/[phone] Question Answer Referral Priority Within 3 days (urgent) Where should this appointment be scheduled? [facility] Comments Rehabilitation for left shoulder pain and likely rotator cuff tendinopathy/arthropathy. Therapy for range of motion, strengthening, pain relief, and modalities as indicated. * Precert (Within 10 days (routine)) - Pending Review Specialty Diagnoses / Procedures Referred By Luz west Referred To Contact Pain Medicine Diagnoses Nontraumatic incomplete tear of right rotator cuff Subacromial impingement of right shoulder Procedures ARTHROCENT ASP &/OR INJ MAJOR JX/BURSA W/O US Slava Kennedy PA-C [address] [place] [address] Referral ID Status Reason Start Date Expiration Date V isits Requested Visits Authorized [id number] Pending Review 03/11/[phone] Reason for Visit * Reason Comments New Problem L shoulder Pain Encounter Details Date Type Department Care Team (Late st Contact Info) Description 03/11/2024 9:00 AM EDT Office Visit Orthopaedics [facility] [address] [place] [address] Slava Kennedy PA-C [address] [employer] [place] [phone] Nontraumatic incomplete tear of right rotator cuff*; Subacromial impingement of right shoulder; Tendinopathy of left rotator cuff; Osteoarthritis of left glenohumeral joint; Acute pain of left shoulder; Impingement of left shoulder Allergies Active Allergy Reactions Criticality Noted Date [...] Active Fludrocortisone Acetate 0.1 MG Oral Tablet (Florinef)Indicatio ns: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 20 Tablet 12/01/2023 Active Baclofen 10 MG Oral Tablet (Lioresal)Indicatio ns:Cervical radiculopathy due to degenerative joint disease of spine,Osteoarthriti s of left AC (acromioclavicular) joint Take 1 Tablet by mouth in the morning and 1 Tablet before bedtime. 40 Tablet 1 12/01/2023 Active Diclofenac Sodium 75 MG Oral Tablet Delayed Release (Voltaren)Indicatio ns:Cervical radiculopathy due to degenerative joint disease of spine,Osteoarthriti s of left AC (acromioclavicular) joint Take 1 Tablet by mouth in the morning and 1 Tablet before bedtime. With food.. 60 Tablet 3 12/01/2023 Active Nicotine 21 MG/24HR Transdermal Patch 24 Hour (Nicoderm CQ)Indications:Hist ory of tobacco use Place 1 Patch over 24 hours topically on the skin daily. For 6 weeks. 42 Patch 12/02/2023 Active Vitamin D3 50 MCG (1999 UT) Oral Capsule TAKE 1 CAPSULE BY MOUTH EVERY MORNING 90 Capsule 1 01/27/2024 Active Hospital, Clinic, or Other Facility Administered Medication Ordered Dose Route Frequency Start Date End Date Status Albuterol Sulfate (Proventil) (5 MG/ML) 0.5% *conc* inhalation solution 2.5 mgIndications:Chronic cough,Hilar lymphadenopathy,Congeni cassidy adrenal hyperplasia due to 32-dlgm-elqvhvmxqst deficiency (HCC) 2.5 mg NEBULIZER PRN 07/16/2023 07/15/2024 Active Albuterol Sulfate (Proventil) (2.5 MG/3ML) 0.083% inhalation solution 2.5 mgIndications:Chronic cough,Hilar lymphadenopathy,Congeni cassidy adrenal hyperplasia due to 61-wxpc-sfvtcihgyoh deficiency (HCC) 2.5 mg NEBULIZER PRN 07/16/2023 07/15/2024 Active lidocaine 1% 1 mL - triamcinolone acetonide 40 mg/mL 1 mL inj 2 mLIndications:Nontrauma tic incomplete tear of right rotator cuff,Subacromial impingement of right shoulder 2 mL IJ ONCE 03/11/2024 03/11/2024 Ended documented as of this encounter (statuses as of 03/11/2024) Active Problems Problem Noted Date Diagnosed Date DRE (generalized anxiety disorder) 12/19/2023 Nontraumatic incomplete tear of right rotator cu ff 05/22/2023 Food insecurity 11/25/2022 Overview: Per [facility] Protocol Anxiety and depression 08/14/2022 [...] (Oral) 03/10/1985,11/14 Pneumococcal Conjugate Vacci ne, 20-valent ([id number]) 03/25/2022 Pneumococcal Polysaccharide PPV23 (Pneumovax) 11/20/2016 Seasonal [...] on file documented as of this encounter Progress Notes * Slava Kennedy PA-C - 03/11/2024 9:05 AM EDT ORTHOPAEDIC SURGERY - Clinic Note SUBJECTIVE: Tg Estrada is a 38 year old female. Chief Complaint Patient presents with New Problem L shoulder Pain HPI: Tg is a pleasant 38-year-old female who presents to the clinic today for a 2 fold issue. First, she presents for repeat right shoulder subacromial corticosteroid injection for treatment ofher chronic pain due to impingement and right rotator cuff tear. Her last injection was on 12/04/2023, roughly 3 months ago. She reports good relief following her previous injection, and is requesting repeat today. She is also seeking evaluation for left shoulder pain which she states has been ongoing for roughly6 months. 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 She does report she was originally evaluated in the emergency department for this left shoulder pain as there was some numbness and tingling associated with it,but she reports no current numbness and tingling. She is interested in initiation of treatment for the left shoulder. Review of Systems: Constitutional ROS: No fevers, sweats, or chills Cardiovascular ROS: No chest pain Respiratory ROS: No breathing difficulty Gastrointestinal ROS: No abdominal pain Musculoskeletal/Extremities ROS: Bilateral shoulder pain Neurologic ROS: No numbness or tingling Review of patient's allergies indicates: Allergen Reactions Penicillins Silver Current Outpatient Medications Medication Sig Dispense Refill [...] 1 Tablet before bedtime. 40 Tablet 1 Diclofenac Sodium 75 MG Oral Tablet Delayed Release (Voltaren) Take 1 Tablet by mouth in the morning and 1 Tablet before bedtime. With food.. 60 Tablet 3 Nicotine 21 MG/24HR Transdermal Patch 24 Hour (Nicoderm CQ) Place 1 Patch over 24 hours topically on the skin daily. For 6 weeks. 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 Bilateral UROLOGY SURGERY PROCEDURE NEC vaginoplasty Social History Tobacco Use Smoking status: Every Day Current packs/day: 1.50 Average packs/day: 1.5 packs/day for 23.0 years (34.5 ttl pk-yrs) Types: Cigarettes Smokeless tobacco: Never Tobacco comments: currently smoking 5-10 cig/day. 5-10 cpd smoker 10/15/23 Vaping Use Vaping status: Some Days Substance Use Topics Alcohol use: Yes Comment: rare Drug use: Yes Frequency: 14.0 times per week Types: Marijuana Comment: rare. h/o heroin, cocaine, meth user Family history: Noncontributory OBJECTIVE: Diagnostic Testing: Radiographs of the left shoulder obtained from [facility] were reviewed, independently interpreted, and demonstrate no obvious evidence of fracture or dislocation. There is some noted AC joint arthritis as well as glenohumeral osteoarthritis to a tglq-ff-rvwjwitt degree. There is also appearance of some slight humeral head migration in relation to the glenoid, which may represent some rotator cuff arthropathy. No other gross soft tissue or bony lesion appreciated. Vital Signs: There were no vitals taken for this visit. Physical Exam: General: Alert and oriented x3 female, in no acute distress, appears currently stated age, appears well nourished, and converses appropriately. Psych: Mood and affect pleasant, cooperative, and without any positive/concerning findings. HEENT: Head is atraumatic, normocephalic, eyes are equal and round and without appreciated scleral injection, oral and nasal cavities are patent without obvious exudate. Respiratory: Patient's breathing is unlabored. Skin: Generally pink, warm and dry without gross visible diaphoresis, rash, erythema, ecchymosis, breakdown, or visible trauma. Musculoskeletal: Examination of the left shoulder reveals no gross deformity, erythema, ecchymosis,or skin breakdown. There is some tenderness to palpation over the posterior aspect and superior aspect just inferior to the acromial border. Passive range of motion is free, without crepitus, and without evidence of capsular restriction. She demonstrates full range of motion and full strength against rotator cuff resistance testing. She demonstrates full strength with Speed's test, biceps load test, and hornblower's test; however hornblower's test elicited some pain in the posterior aspect. Impingement testing mildly positive. She is otherwise distally neurovascularly intact with appropriate sensation to light touch, palpable pulses, and brisk cap refill. Fine distal motor function is intact along all myotomal distributions. ASSESSMENT: Nontraumatic incomplete tear of right rotator cuff (Primary) - ARTHROCENT ASP &/OR INJ MAJOR JX/BURSA W/O US - lidocaine 1% 1 mL - triamcinolone acetonide 40 mg/mL 1 mL inj 2 mL Subacromial impingement of right shoulder - ARTHROCENT ASP &/OR INJ MAJOR JX/BURSA W/O US - lidocaine 1% 1 mL - triamcinolone acetonide 40 mg/mL 1 mL inj 2 mL Tendinopathy of left rotator cuff - PHYSICAL THERAPY REFERRAL OP Osteoarthritis of left glenohumeral joint - PHYSICAL THERAPY REFERRAL OP Acute pain of left shoulder - PHYSICAL THERAPY REFERRAL OP Impingement of left shoulder - PHYSICAL THERAPY REFERRAL OP Follow Up: Return in about 6 weeks (around 04/22/2024) for Clinic Visit. | For: Clinic Visit | Check-out note: 6-8 weeks. PLAN: She is doing relatively well with regard to the right shoulder with her current subacromial injection regimen. We did have a discussion today with regard to corticosteroid injection versus surgical intervention for her known rotator cuff tears. Given patient's work status, she is preferable to continue injection therapy and defer surgical intervention until she is able to secure FMLA time. Therefore, we will proceed with repeat right shoulder subacromial injection today for treatment of her symptoms. This was very well tolerated today. I advised against significant physical activity today, but patient may resume activities as normal tomorrow. I would like patient to follow up per her prefere nce, and roughly 3 months for repeat injection if needed. With regard to her left shoulder, we discussed her x-rays demonstrating evidence of osteoarthritis as well as some slight humeral head superior migration. We discussed the possibility of rotator cufftendinopathy versus arthropathy given her symptoms and exam. We discussed treatment modalities to include formal physical therapy, corticosteroid injection, further evaluation with MRI, and possible eventual surgical intervention. At this point I recommended initiation of formal physical therapy and follow up for assessment of response. A referral was placed accordingly today. I would like patient to follow up in 6 to 8 weeks for clinical re-evaluation and assessment of response to physical therapy. Certainly corticosteroid injection or further evaluation with MRI may be considered at that time based on patient's surgical time table and her job. Patient was certainly urged to contact clinicin the interim with any questions, concerns, or worsening of symptoms. Patient is comfortable with the plan, and all questions were answered. This chart was completed in part utilizing [employer] Voice Recognition Software. Grammatical errors, random word insertions, pronoun errors, and incomplete sentences are an occasional consequence of this system due to software limitations, ambient noise, and hardware issues. Any formal questions or concerns about the content, text, or information contained within the body of this dictation should be directly addressed to the provider for clarification. 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) 04/29/2024 3:30 PM EST Office Visit Orthopaedics [facility] [address] [facility] [place] [address] Slava Kennedy PA-C [address] [place] [id number] 10/14/2024 10:20 AM EDT Office Visit Pulmonary Medicine, [facility] [address] [facility] [place] [address] John Jolly MD [address] [place] [id number] Scheduled Orders Name Type Priority Associated Diagnoses Orde r Schedule ARTHROCENT ASP &/OR INJ MAJOR JX/BURSA W/O US Procedures Routine Nontraumatic incomplete tear of right rotator cuff Subacromial impingement of right shoulder Ordered: 03/11/2024 Scheduled Referrals Name Type Priority Associated Diagnoses Orde r Schedule PHYSICAL THERAPY REFERRAL OP Referral Within 3 days (urgent) Tendinopathy of left rotator cuff Osteoarthritis of left glenohumeral joint Acute pain of left shoulder Impingement of left shoulder Ordered: 03/11/2024 Health Maintenance Due Date Last Done Comments Pap Smear 2005 Cervical Cancer Screening 2014 HPV/Co-Test 2014 Hepatitis B Vaccine (3 of 3 - 19+ 3-dose series) 01/21/2024 10/02/2023, 07/23/2023 COVID-19 Vaccine (2023- season) 2024 Influenza Vaccine (FLU shot) (#1) 2024 04/16/2011, 04/16/2011 Depression Monitoring 01/20/2025 01/21/2024 Diabetes Screening 11/12/2026 11/13/2023, 0 07/14/2023, 06/19/2023, Additional history exists DTap/Tdap Vaccines (6 - [...] as of this encounter Visit Diagnoses Diagnosis Nontraumatic incomplete tear of right rotator cuff- Primary Partial tear of rotator cuff Subacromial impingement of right shoulder Tendinopathy of left rotator cuff Osteoarthritis of left glenohumeral joint Acute pain of left shoulder Impingement of left shoulder 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) documented in this encounter Administered Medications Inactive Administered Medications - up to 3 most recent administrations Medication Order MAR Action Action Date Dose Rate Site lidocaine 1% 1 mL - triamcinolone acetonide 40 mg/mL 1 mL inj 2 mL 2 mL, Injection, ONCE, On Sabrina 03/11/24 at 1015, For 1 dose, Lidocaine 1% 1mL Triamcinolone Acetonide 40 mg/mL 1 mL (Final concentration = 20 mg/mL) REFRIGERATE and SHAKE WELL Given 03/11/2024 9:39 AM EDT 2 mL Shoulder Right documented in this encounter Care Teams Cogeneration Technician Relationship Specialty Start Date End Date Cordell Rosas DO [address] [place] [address] PCP - General Family Medicine 03/11/24 documented as of this encounter
--- OUTSIDE RECORDS SUMMARY | 2024-08-31 02:57 | External Medical Summary ---
Author Name Unknown Address Unknown Organization : Laboratory Report Ordering Provider Test Date Status SAAD OTT 03/11/2024 09:51:45 Final Observation Date Value Abnormality Reference (Units ) Status 17-Hydroxyprogesterone 03/11/2024 09:51:45 570 (ng/dL) Final Unable to flag abnormal result(s), please refer
to reference range(s) below:
Adult Female Reference Ranges
for 17-Hydroxyprogesterone:
Pre-Menopausal Mid Follicular: 23 - 102 ng/dL
Pre-Menopausal Surge: 67 - 349 ng/dL
Pre-Menopausal Mid Luteal: 139 - 431 ng/dL
Postmenopausal Phase: < or = 45 ng/dL
Female Dionte Stages:
II - III Females: 18 - 220 ng/dL
IV - V Females: 36 - 200 ng/dL
Includes data from J Clin Endocrinol Metab.
1990;73:674-686; J Clin Endocrinol Metab.
1989;69;1315-5264; J Clin Endocrinol Metab.
1993;78:226-270. Pediatr Res 1988;23:525-529.
MedLinePlus (accessed 11/29/13).
This test was developed and its analytical performance
characteristics have been determined by [facility] [place], [place]. It has
not been cleared or approved by the U.S. Food and Drug
Administration. This assay has been validated pursuant
to the CLIA regulations and is used for clinical
purposes.

Test Performed at:
[facility]
[address] [facility] [place] [address]
Marco A Cartwright M.D., Ph.D.,Director of Laboratories Performing Location
--- OUTSIDE RECORDS SUMMARY | 2024-08-31 02:57 | External Medical Summary ---
Author Name Unknown Address Unknown Organization [id number]:[facility] - [address] [address] Laboratory Report Ordering Provider Test Date Status SAAD OTT 03/11/2024 09:51:45 Final Follicular Phase: 12.4-233 p g/mL
Ovulation Phase: 41.0-398 pg/mL
Luteal Phase: 22.3-341 pg/mL

Post menopausal: <50 pg/mL

:
1st Trimester: 154-3243 pg/mL
2nd Trimester: 1561-61922 pg/mL
3rd Trimester: >8525 pg/mL Observation Date Value Abnormality Reference (Units ) Status Estradiol 03/11/2024 09:51:45 47.8 (pg/mL) Final Performing Location [facility] - [address] [place] [address]
--- OUTSIDE RECORDS SUMMARY | 2024-08-31 02:57 | External Medical Summary ---
Author Name Unknown Address Unknown Organization [id number]:[facility] [place] [address] [place] [address] Laboratory Report Ordering Provider Test Date Status ALIYAH MCNEILL 04/05/2024 11:58:18 Final Observation Date Value Abnormality Reference (Units ) Status WBC, Total 04/05/2024 11:58:18 12.27 Above high normal 4 .00-10.80 (K/uL) Final RBC 04/05/2024 11:58:18 4.77 3.85-5.15 (M/uL) Final Hemoglobin 04/05/2024 11:58:18 15.2 12.0-15.3 (g/dL) Final HCT 04/05/2024 11:58:18 46.0 Above high normal 36 .0-45.2 (%) Final MCV 04/05/2024 11:58:18 96.4 81.5-97.5 (fL) Final MCH 04/05/2024 11:58:18 31.9 27.0-34.0 (pg) Final MCHC 04/05/2024 11:58:18 33.0 32.0-36.0 (g/dL) Final RDW 04/05/2024 11:58:18 13.3 11.5-15.5 (%) Final Platelets 04/05/2024 11:58:18 356 140-400 (K /uL) Final MPV 04/05/2024 11:58:18 10.0 6.6-11.1 ( fL) Final Performing Location [facility] [place] [address]
--- OUTSIDE RECORDS SUMMARY | 2024-08-31 02:57 | External Medical Summary | Summary of Care ---
Author Name Unknown Organization [facility] Address [address] [place] [address] Phone [phone] Care Team Providers Care Glove Factory Sewer Name Role Phone Cordell Rosas DO Primary Care Provider Reason for Visit * Reason Comments Outpatient Testing Encounter Details Date Type Department Care Team (Late st Contact Info) Description 04/05/2024 12:00 PM EDT Laboratory Laboratory [facility] [address] [facility] [id number] [facility] [address] [facility] [place] [address] Night sweat Allergies Active Allergy Reactions Criticality Noted Date [...] 1 12/01/2023 Active Vitamin D3 50 MCG (2000 UT) Oral Capsule TAKE 1 CAPSULE BY MOUTH EVERY MORNING 90 Capsule 1 01/27/2024 Active Doxycycline Hyclate 100 MG Oral CapsuleIndications: Acute non-recurrent maxillary sinusitis Take 1 Capsule by mouth in the morning and 1 Capsule before bedtime. Do all this for 10 days. Until gone.. 20 Capsule 04/05/2024 Active Benzonatate 200 MG Oral CapsuleIndications: Acute non-recurrent maxillary sinusitis Take 1 Capsule by mouth 3 times a day as needed for Cough. 50 Capsule 1 04/05/2024 Active Varenicline Tartrate 0.5 MG Oral Tablet (Chantix)Indication s:Tobacco use disorder Take 1 Tablet by mouth in the morning. 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) 2.5 mg NEBULIZER PRN 07/16/2023 07/15/2024 Active Albuterol Sulfate (Proventil) (2.5 MG/3ML) 0.083% inhalation solution 2.5 mgIndications:Chronic cough,Hilar lymphadenopathy,Congeni cassidy adrenal hyperplasia due to 06-gadg-ltbmquzlrhu deficiency (HCC) 2.5 mg NEBULIZER PRN 07/16/2023 07/15/2024 Active documented as of this encounter (statuses as of 04/05/2024) Active Problems Problem Noted Date Diagnosed Date DRE (generalized anxiety disorder) 12/19/2023 Nontraumatic incomplete tear of right rotator cu ff 05/22/2023 Food insecurity 11/25/2022 Overview: Per [facility] Protocol Anxiety and depression 08/14/2022 History [...] 10/02/2023 OPV - Polio Virus Vaccine (Oral) 03/10/1985,06/1 Pneumococcal Conjugate Vacci ne, 20-valent ([id number]) 03/25/2022 Pneumococcal Polysaccharide PPV23 (Pneumovax) 11/20/2016 Seasonal [...] Office Visit Orthopaedics [facility] [address] [place] [address] Slava Kennedy PA-C [address] [place] [address] 05/03/2024 4:00 PM EST Office Visit General Internal Medicine [facility] [address] [facility] [place] [address] Anjel Mansfield DO [address] [facility] [place] [address] 10/14/2024 10:20 AM EDT Office Visit Pulmonary Medicine, [facility] [address] [place] [address] John Jolly MD [address] [place] [address] Pending Results Name Type Priority Associated Diagnoses Date /Time COMPREHENSIVE METABOLIC PANEL Lab Routine Night sweat 04/05/2024 11:58 AM EDT HEMOGLOBIN A1C Lab Routine Night sweat 04/05/2024 11:58 AM EDT TSH WITH FREE T4 IF INDICATED Lab Routine Night sweat 04/05/2024 11:58 AM EDT Health Maintenance Due Date Last Done Comments [...] Procedure Name Priority Date/Time Associated Diagnosis Comments DIFFERENTIAL, AUTOMATED Routine 04/05/2024 11:58 AM EDT Night sweat CBC Routine 04/05/2024 11:58 AM EDT Night sweat CBC Routine 04/05/2024 11:58 AM EDT Night sweat documented in this encounter Results * (ABNORMAL) DIFFERENTIAL, AUTOMATED (04/05/2024 11:58 AM EDT) WBC 12.27(H) 4.00 - 10.80 K/uL 04/05/2024 12:04 PM EDT [facility] 56-02 Neutrophils % 70.4 40.0 - 75.0 % 04/05/2024 12:04 PM EDT [facility] 56- Lymphocytes % 20.3 18.0 - 42.0 % 04/05/2024 12:04 PM EDT [facility] 56- Monocytes % 7.7 1.0 - 11.0 % 04/05/2024 12:04 PM EDT [facility] 56- Eosinophils % 1.4 0.0 - 6.0 % 04/05/2024 12:04 PM EDT [facility] 56- Basophils % 0.2 0.0 - 2.0 % 04/05/2024 12:04 PM EDT [facility] 56- Absolute Neutrophils 8.64(H) 1.80 - 7.70 K/uL 04/05/2024 12:04 PM EDT [facility] 56- Absolute Lymphocytes 2.49 1.00 - 4.80 K/ul 04/05/2024 12:04 PM EDT [facility] 56- Absolute Monocytes 0.94 0.00 - 1.10 K/uL 04/05/2024 12:04 PM EDT [facility] 56-02 Absolute Eosinophils 0.17 0.00 - 0.70 K/uL 04/05/2024 12:04 PM EDT [facility] 56-02 Absolute Basophils 0.03 0.00 - 0.20 K/uL 04/05/2024 12:04 PM EDT [facility] 56- Blood Venous blood specimen / Unknown Venipuncture / Unknown 04/05/2024 11:58 AM EDT 04/05/2024 11:58 AM EDT Anjel Mansfield DO LAB BLOOD OR DERABLES [facility] [address]- [address] [place] [address] * (ABNORMAL) CBC (04/05/2024 11:58 AM EDT) WBC 12.27(H) 4.00 - 10.80 K/uL 04/05/2024 12:04 PM EDT [facility] 56- RBC 4.77 3.85 - 5.15 M/uL 04/05/2024 12:04 PM EDT [facility] 56 HGB 15.2 12.0 - 15.3 g/dL 04/05/2024 12:04 PM EDT [facility] 56- HCT 46.0(H) 36.0 - 45.2 % 04/05/2024 12:04 PM EDT [facility] 56 MCV 96.4 81.5 - 97.5 fL 04/05/2024 12:04 PM EDT [facility] 56- MCH 31.9 27.0 - 34.0 pg 04/05/2024 12:04 PM EDT [facility] 56 MCHC 33.0 32.0 - 36.0 g/dL 04/05/2024 12:04 PM EDT [facility] 56 RDW 13.3 11.5 - 15.5 % 04/05/2024 12:04 PM EDT [facility] 56 PLT 356 140 - 400 K/uL 04/05/2024 12:04 PM EDT [address] MPV 10.0 6.6 - 11.1 fL 04/05/2024 12:04 PM EDT [facility] 56 Blood Venous blood specimen / Unknown Venipuncture / Unknown 04/05/2024 11:58 AM EDT 04/05/2024 11:58 AM EDT Anjel Mansfield DO LAB BLOOD OR DERABLES [facility] 56 [address] [facility] [address] documented in this encounter Visit Diagnoses Diagnosis Night sweat Generalized hyperhidrosis documented in this encounter Care Teams Glove Factory Sewer Relationship Specialty Start Date End Date Cordell Rosas DO [address] [facility] [address] PCP - General Family Medicine 03/11/24 documented as of this encounter
--- OUTSIDE RECORDS SUMMARY | 2024-08-31 02:57 | External Medical Summary | Summary of Care ---
Author Name Unknown Organization [facility] Address [address] [place] [address] Phone [phone] Care Team Providers Care Mma Fighter Name Role Phone Cordell Rosas DO Primary Care Provider [phone] Reason for Referral * Evaluate & Treat - Unlimited Visits (Within 3 days (urgent)) - Pending Review Specialty Diagnoses / Procedures Referred By Luz west Referred To Contact Physical Therapy / Physical Medicine And Rehab Diagnoses Tendinopathy of left rotator cuff Osteoarthritis of left glenohumeral joint Acute pain of left shoulder Impingement of left shoulder Slava Kennedy PA-C [address] [place] [address] Referral ID Status Reason Start Date Expiration Date Visits Requested Visits Authorized [id number] Pending Review Specialty Services Required 03/11/2024 999 [...] Slava Kennedy PA-C [address] [place] [address] Referral ID Status Reason Start Date Expiration Date V isits Requested Visits Authorized [id number] Pending Review 03/11/2024 999 999 Reason for Visit * Reason Comments New Problem L shoulder Pain Encounter Details Date Type Department Care Team (Late st Contact Info) Description 03/11/2024 9:00 AM EDT Office Visit Orthopaedics [facility] [address] [place] [address] Slava Kennedy PA-C [address] [place] [address] Nontraumatic incomplete tear of right rotator cuff*; [...] cough,Hilar lymphadenopathy,Congeni cassidy adrenal hyperplasia due to 96-zqeu-kbvzeflkbqm deficiency (HCC) 2.5 mg NEBULIZER PRN 07/16/2023 07/15/2024 Active Albuterol Sulfate (Proventil) (2.5 MG/3ML) 0.083% inhalation solution 2.5 mgIndications:Chronic cough,Hilar lymphadenopathy,Congeni cassidy adrenal hyperplasia due to 48-hopi-jtikzbcwoph deficiency (HCC) 2.5 mg NEBULIZER PRN 07/16/2023 [...] ff 05/22/2023 Food insecurity 11/25/2022 Overview: Per [facility] Protocol Anxiety and depression 08/14/2022 [...] (Oral) 03/10/1985,11/14 Pneumococcal Conjugate Vacci ne, 20-valent ([id number]) 03/25/2022 Pneumococcal Polysaccharide PPV23 (Pneumovax) 11/20/2016 Seasonal [...] Radiographs of the left shoulder obtained from [facility] were reviewed, independently interpreted, and demonstrate no obvious evidence of fracture or dislocation. There is some noted AC joint arthritis as well as glenohumeral osteoarthritis to a mild degree. There is also appearance of trace humeral head migration in relation to the [...] like patient to follow up per her prefer ence, and roughly 3 months for repeat injection [...] This chart was completed in part utilizing [employer] Voice Recognition Software. Grammatical errors, random word [...] Pt stated she had xrays done at [facility] in AUGUST 2023 Pt would like [...] 04/29/2024 3:30 PM EST Office Visit Orthopaedics [address] [place] [address] Slava Kennedy PA-C [facility] [address] [place] [phone] 10/14/2024 10:20 AM EDT Office Visit Pulmonary Medicine, [facility] [address] [place] [address] John Jolly MD [address] [place] [phone] Scheduled Orders Name Type Priority Associated Diagnoses [...] of left shoulder Impingement of left shoulder documented in this encounter Administered Medications Inactive [...] Right documented in this encounter Care Teams Mma Fighter Relationship Specialty Start Date End Date Cordell Rosas DO [address] [place] [address] [place] [address] PCP - General Family Medicine 03/11/24 documented as of this encounter
--- OUTSIDE RECORDS SUMMARY | 2024-08-31 02:57 | External Medical Summary | Summary of Care ---
Author Name Unknown Organization [facility] Address [address] [place] [address] Phone [phone] Care Team Providers Care Neurology Professor Name Role Phone Cordell Rosas DO Primary Care Provider [phone] Encounter Details Date Type Department Care Team (Late st Contact Info) Description 04/03/2024 Orders Only PATIENT PORTAL DO NOT DELETE THIS DEPT USED BY [place] [address] Allergies Active Allergy Reactions Criticality Noted Date Comments Penicillins 01/01/2002 Silver 01/05/2016 documented as of this encounter (statuses as of 04/03/2024) Medications Medication Sig Dispensed Refills Start Date [...] Patch 12/02/2023 Active Vitamin D3 50 MCG (2000 UT) Oral Capsule TAKE 1 CAPSULE BY MOUTH EVERY MORNING 90 Capsule 1 01/27/2024 Active Hospital, Clinic, or Other Facility Administered Medication Ordered Dose Route Frequency Start Date End Date Status Albuterol Sulfate (Proventil) (5 MG/ML) 0.5% *conc* inhalation solution 2.5 mgIndications:Chronic cough,Hilar lymphadenopathy,Congeni cassidy adrenal hyperplasia due to 47-ttlw-qnjfbsmkfwi deficiency (HCC) 2.5 mg NEBULIZER PRN 07/16/2023 07/15/2024 Active Albuterol Sulfate (Proventil) (2.5 MG/3ML) 0.083% inhalation solution 2.5 mgIndications:Chronic cough,Hilar lymphadenopathy,Congeni cassidy adrenal hyperplasia due to 54-nvxn-ftgvoxwjafe deficiency (HCC) 2.5 mg NEBULIZER PRN 07/16/2023 07/15/2024 Active documented as of this encounter (statuses as of 04/03/2024) Active Problems Problem Noted Date Diagnosed Date DRE (generalized anxiety disorder) 12/19/2023 Nontraumatic incomplete tear of right rotator cu ff 05/22/2023 Food insecurity 11/25/2022 Overview: Per [facility] Protocol Anxiety and depression 08/14/2022 History of tobacco use 05/29/2022 Thoracic back pain 04/28/2017 Lumbar spine pain 04/28/2017 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 DDD (degenerative disc disease), lumbar Chronic back pain Overview: back injury documented as of this encounter (statuses as of 04/03/2024) Resolved Problems Problem Noted Date Diagnosed Date Resolved Date Major depressive disorder, r ecurrent episode, moderate 12/19/2023 02/09/2024 History of congenital adrenal hyperplasia 10/02/2023 10/02/2023 Heroin withdrawal 03/01/2017 03/16/2018 Right foot pain 10/15/2016 10/02/2023 Pain of right lower leg 10/15/201609/14 Adrenogenital disorder 12/24/200407/29 documented as of this encounter (statuses as of 04/03/2024) Immunizations Name Administration Dates Next Due DTP Vaccine 08/03/1985,03/10/1985,1984 HEPATITIS B VACCINE, RECOMB, 20 MCG/ML, ADULT (HEPLISAV-B) 07/23/2023 Hepatitis B, 20+ yrs 10/02/2023 OPV - Polio Virus Vaccine (Oral) 03/10/1985,11/14 Pneumococcal Conjugate Vacci ne, 20-valent ([id number]) 03/25/2022 Pneumococcal Polysaccharide PPV23 (Pneumovax) 11/20/2016 Seasonal [...] 04/29/2024 3:30 PM EST Office Visit Orthopaedics [facility] [address] [place] [address] Slava Kennedy PA-C [address] [place] [address] 10/14/2024 10:20 AM EDT Office Visit Pulmonary Medicine, [facility] [address] [place] [address] John Jolly MD [address] [place] [address] Health Maintenance Due Date Last Done Comments [...] filedocumented as of this encounter Care Teams Neurology Professor Relationship Specialty Start Date End Date Cordell Rosas DO [address] [place] [address] PCP - General Family Medicine 03/11/24 documented as of this encounter
--- OUTSIDE RECORDS SUMMARY | 2024-08-31 02:57 | External Medical Summary ---
Author Name Unknown Address Unknown Organization K09:[facility] [address] [place] [address] Laboratory Report Ordering Provider Test Date Status ALIYAH MCNEILL 04/05/2024 11:58:18 Final Observation Date Value Abnormality Reference (Units ) Status BUN 04/05/2024 11:58:18 9 6-20 (mg/dL) Final Creatinine 04/05/2024 11:58:18 0.8 0.5-1.0 (mg/dL) Final Glomerular filtration rate/1.73 sq M.predicted [Volume Rate/Area] in Serum, Plasma or Blood by Creatinine-based formula (CKD-EPI) 04/05/2024 11:58:18 >90 >=60 (mL/min) Final eGFR is calculated based on the CKD-EPI 2020 equation. Sodium 04/05/2024 11:58:18 139 135-146 (m mol/L) Final Potassium 04/05/2024 11:58:18 5.0 3.5-5.1 (m mol/L) Final Cl 04/05/2024 11:58:18 102 98-107 (mm ol/L) Final CO2 04/05/2024 11:58:18 24 22-32 (mmo l/L) Final Anion gap 04/05/2024 11:58:18 13 7-15 (mmol /L) Final Glucose 04/05/2024 11:58:18 84 70-120 (mg /dL) Final Albumin 04/05/2024 11:58:18 4.9 3.8-5.0 (g /dL) Final AST (Aspartate aminotransferase) 04/05/2024 11:58:18 18 10-35 (U/L) Final Alk Phos 04/05/2024 11:58:18 103 35-130 (U/ L) Final Bilirubin, Total 04/05/2024 11:58:18 0.2 <=1 .2 (mg/dL) Final Calcium 04/05/2024 11:58:18 10.1 8.4-10.2 ( mg/dL) Final Protein 04/05/2024 11:58:18 7.3 6.0-8.3 (g /dL) Final ALT (Alanine aminotransferase) 04/05/2024 11:58:18 17 10-35 (U/L) Final Performing Location [facility]- [address] [place] [address]
--- OUTSIDE RECORDS SUMMARY | 2024-08-31 02:57 | External Medical Summary ---
Author Name Unknown Address Unknown Organization K01:[facility] - [address] [facility] [address] Laboratory Report Ordering Provider Test Date Status GAY MCNEILLSARAH 04/05/2024 11:58:18 Final Observation Date Value Abnormality Reference (Units ) Status TSH 04/05/2024 11:58:18 1.14 0.27-4.20 (uIU/mL) Final Performing Location [facility] - [address] [facility] [address]
--- OUTSIDE RECORDS SUMMARY | 2024-08-31 02:57 | External Medical Summary | Summary of Care ---
Author Name Unknown Organization [facility] Address [address] [place] [address] Phone [phone] Care Team Providers Care Port Traffic Manager Name Role Phone Cordell Rosas DO Primary Care Provider [phone] Encounter Details Date Type Department Care Team (Late st Contact Info) Description 10/01/2023 Orders Only Orthopaedics, [facility] [address] [place] [address] OsosSlava owens PA-C [address] [place] [phone] Allergies Active Allergy Reactions Criticality Noted Date [...] cough,Hilar lymphadenopathy,Congeni cassidy adrenal hyperplasia due to 06-ymzh-sfkflzyiwmz deficiency (HCC) 2.5 mg NEBULIZER PRN 07/16/2023 07/15/2024 Active Albuterol Sulfate (Proventil) (2.5 MG/3ML) 0.083% inhalation solution 2.5 mgIndications:Chronic cough,Hilar lymphadenopathy,Congeni cassidy adrenal hyperplasia due to 77-xxjt-fsbilgmepvb deficiency (HCC) 2.5 mg NEBULIZER PRN 07/16/2023 07/15/2024 Active documented as of this encounter (statuses as of 03/11/2024) Active Problems Problem Noted Date Diagnosed Date DRE (generalized anxiety disorder) 12/19/2023 Nontraumatic incomplete tear of right rotator cu ff 05/22/2023 Food insecurity 11/25/2022 Overview: Per [facility] Protocol Anxiety and depression 08/14/2022 [...] (Oral) 03/10/1985,11/14 Pneumococcal Conjugate Vacci ne, 20-valent ([id number]) 03/25/2022 Pneumococcal Polysaccharide PPV23 (Pneumovax) 11/20/2016 Seasonal [...] Description 03/11/2024 10:10 AM EDT Laboratory Laboratory, [facility] [address] [facility] [place] [phone] [facility] [address] [facility] [place] [address] 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 Slava Kennedy PA-C RADIOLOGY (R AD GENERAL) documented in this encounter Care Teams Port Traffic Manager Relationship Specialty Start Date End Date Cordell Rosas DO [address] [place] [address] PCP - General Family Medicine 03/11/24 documented as of this encounter
--- OUTSIDE RECORDS SUMMARY | 2024-08-31 02:58 | External Medical Summary ---
Author Name Unknown Address Unknown Organization : Laboratory Report Ordering Provider Test Date Status SAAD OTT 03/11/2024 09:51:45 Final Observation Date Value Abnormality Reference (Units ) Status Testosterone [Mass/volume] in Serum or Plasma 03/11/2024 09:51:45 25 2-45 (ng/dL) Final For additional information, please refer to
http://education.[employer]/faq/
T[email or web address] link is being provided for informational/
educational purposes only.)
This test was developed and its analytical performance
characteristics have been determined by [employer] [place] [place]. It has
not been cleared or approved by the U.S. Food and Drug
Administration. This assay has been validated pursuant
to the CLIA regulations and is used for clinical
purposes. Free Testosterone, calculated 03/11/2024 09:51:45 4.4 0.1-6.4 (pg/mL) Final This test was developed and its analytical performance
characteristics have been determined by [employer] [place]. It has
not been cleared or approved by the U.S. Food and Drug
Administration. This assay has been validated pursuant
to the CLIA regulations and is used for clinical
purposes.

Test Performed at:
[facility]
[address] [facility] [place] [address]
Marco A Cartwright M.D., Ph.D.,Director of Laboratories Performing Location
--- OUTSIDE RECORDS SUMMARY | 2024-08-31 02:58 | External Medical Summary ---
Author Name Unknown Address Unknown Organization [id number]:[facility]-[address] - [address] [place] [address] Laboratory Report Ordering Provider Test Date Status SAAD OTT 03/11/2024 09:51:45 Final Observation Date Value Abnormality Reference (Units ) Status BUN 03/11/2024 09:51:45 12 6-20 (mg/dL) Final Creatinine 03/11/2024 09:51:45 1.0 0.5-1.0 (mg/dL) Final Glomerular filtration rate/1.73 sq M.predicted [Volume Rate/Area] in Serum, Plasma or Blood by Creatinine-based formula (CKD-EPI) 03/11/2024 09:51:45 77 >=60 (mL/min) Final eGFR is calculated based on the CKD-EPI 2020 equation. Sodium 03/11/2024 09:51:45 136 135-146 (m mol/L) Final Potassium 03/11/2024 09:51:45 5.4 Above high normal 3. 5-5.1 (mmol/L) Final Cl 03/11/2024 09:51:45 100 98-107 (mm ol/L) Final CO2 03/11/2024 09:51:45 20 Below low normal 22- 32 (mmol/L) Final Anion gap 03/11/2024 09:51:45 16 Above high normal 7- 15 (mmol/L) Final Glucose 03/11/2024 09:51:45 93 70-120 (mg /dL) Final Calcium 03/11/2024 09:51:45 10.1 8.4-10.2 ( mg/dL) Final Performing Location [facility]-1 0 - [address] [place] [address]
--- OUTSIDE RECORDS SUMMARY | 2024-08-31 02:58 | External Medical Summary ---
Author Name Unknown Address Unknown Organization K01:[facility] [place] [facility] [place] [address] Laboratory Report Ordering Provider Test Date Status SAAD OTT 03/11/2024 09:51:45 Final Observation Date Value Abnormality Reference (Units ) Status Follitropin [Units/volume] in Serum or Plasma by 2nd IRP 03/11/2024 09:51:45 2.4 (mIU/mL) Final Follicular Phase: 3.5- 12.5 mIU/mL
Ovulation Phase: 4.7- 21.5 mIU/mL
Luteal Phase: 1.7- 7.7 mIU/mL
Postmenopausal: 25.8-134.8 mIU/mL Performing Location [facility] [place] [address] [place] [address]
[2024-08-31] MEDS: ACETAMINOPHEN 1,000 MG/100 ML VIAL IV PRN (05:33)
[2024-08-31] MEDS: ENOXAPARIN INJ 40 MG/0.4 ML SYR SQ SCH (05:40)
[2024-08-31 07:23] LABS: Adenovirus F 40/41 PCR Not Detected (NotDetected); Astrovirus PCR Not Detected (NotDetected); Campylobacter PCR Not Detected (NotDetected); Cryptosporidium PCR Not Detected (NotDetected); Cyclospora cayetanensis PCR Not Detected (NotDetected); Entamoeba histolytica PCR Not Detected (NotDetected); Enteroaggregative E.coli(EAEC) Not Detected (NotDetected); Enteropathogenic E.coli (EPEC) Not Detected (NotDetected); Enterotoxigenic E.coli (ETEC) Not Detected (NotDetected); Giardia lamblia PCR Not Detected (NotDetected); Plesiomonas shigelloides PCR Not Detected (NotDetected); Rotavirus A PCR Not Detected (NotDetected); Salmonella PCR Not Detected (NotDetected); Sapovirus PCR Not Detected (NotDetected); Shiga-like Toxin E.coli (STEC) Not Detected (NotDetected); Shigella/Enteroinvasive E.coli Not Detected (NotDetected); Vibrio cholerae PCR Not Detected (NotDetected); Vibrio species PCR Not Detected (NotDetected); Yersinia enterocolitica PCR Not Detected (NotDetected)
[2024-08-31 07:27] VITALS: RESP 16
[2024-08-31 07:28] LABS: Hemoglobin 12.2 g/dl (12.0-16.0); Immature Granulocytes # (auto) 0.02 K/uL (0.01-0.20); Immature Granulocytes % (auto) 0.3 %; Lymphocytes # (auto) 0.46 K/uL (1.20-3.40); Mean Corpuscular Hemoglobin 29.7 pg (25.0-34.0); Mean Corpuscular Hgb Conc 33.9 g/dL (32.0-36.0); Mean Corpuscular Volume 87.6 fL (80.0-100.0); Mean Platelet Volume 9.9 fL (9.4-12.4); Monocytes # (auto) 0.51 K/uL (0.11-0.59); Monocytes % (auto) 8.9 %; Neutrophils # (auto) 4.77 K/uL (1.40-6.50); Neutrophils % (auto) 82.8 %; Platelet Count 278 K/uL (130-400); RDW Coefficient of Variation 12.7 % (11.5-14.5); RDW Standard Deviation 40.4 fL (36.4-46.3); Red Blood Count 4.11 M/uL (4.20-5.40); White Blood Count 5.76 K/ul (4.8-10.8)
[2024-08-31 07:33] LABS: BUN Creatinine Ratio 12.1 (10-20); Calcium 7.9 mg/dl (8.6-10.3); Creatinine Clr Calc Pharmacy 108.8 ml/min; Magnesium 1.7 mg/dl (1.7-2.4); Potassium 3.8 mmol/L (3.5-5.1)
[2024-08-31 07:46] LABS: Norovirus GI/GII PCR DETECTED (NotDetected)
[2024-08-31] MEDS: dexAMETHasone 4 MG in SYRINGE 0 ML IV SCH (08:34)
[2024-08-31] MEDS: FLUDROCORTISONE ACETATE 0.1 MG TAB PO SCH (08:34)
[2024-08-31] MEDS: KETOROLAC TROMETHAMINE 15 MG/ML VIAL IV ONE ×2 (08:34→14:07)
[2024-08-31] MEDS ORDERED: DEXAMETHASONE SOD INJ 4 MG/ML VIAL IV SCH (09:00)
--- NOTE | 2024-08-31 13:46 | Discharge Summary ---
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 Stool studies were positive for norovirus. CT scan showing diffuse enteritis. Symptoms improved overnight and tolerating liquid diet. Lactic acid initially elevated but normalized with IV fluids. Did receive stress dose of IV Decadron 4mg given underlying CAH due to 21-hydroxylase deficiency. VSS, will resume home steroid regimen with methylprednisolone and Florinef. Instructed to resume Aldactone in next few days when tolerating normal fluids/diet. 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 Patient hemodynamically stable and tolerating PO at time of discharge home. Care coordinated with Dr. Nayak. 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 Friday patient had brunch outside and since evening she started have a lot of nausea /vomiting and diarrhea. And also had temp spike. Not able to keep anything down. So came to the ER. Currently nausea is better. Was also having abdominal pain which is better now. Did not moved bowels since Friday afternoon. Denies any chest pain or shortness of breath. No cough. No headache. No runny nose or sore throat. Resting comfortably. Feeling hungry. Past medical history. As mentioned above Past surgical history. Bilateral carpal tunnel surgery. Vaginoplasty. Social history. Smokes 1.5 pack a day for last 23 years. Vapes some days. Alcohol rarely. Uses marijuana. History of heroin and cocaine and meth use. Family history. Brother had bipolar disorder. Brother had CAH. Paternal grandfather had CHF. Admission Exam Per Admitting Provider General- Not in distress Head- atraumatic Eyes- PERRL. ENT- oropharynx clear Neck- supple, no JVD. Lungs- clear to auscultation no wheezing or crackles Heart- regular rate and rhythm; no murmur, no gallop. Abdomen- normal bowel sounds, soft, nontender, no distension. Extremities- no pretibial edema, no erythema seen Neuro- alert, oriented PERRL, no facial palsy; no dysarthria; moves extremities Discharge Exam Gen: WD/WN, NAD, sitting up in bed, A&Ox3 HEENT: Normocephalic, atraumatic, conjunctivae moist, sclerae anicteric, mucous membranes moist Lung: Clear to Auscultation bilaterally, no wheezes/rales/rhonchi Heart: Regular rate, regular rhythm, no murmurs, rubs, or gallops Abdomen: Soft, NT, ND +BS x 4 Extremities: no edema Skin: Warm, no rash Updated Medication List Medication Instructions Recorded Confirmed Type Medical Marijuana 1 dose inhalation DIRECTED PRN 09/13/21 08/30/24 History NEEDED acetaminophen 500 mg tablet 500 - 1,000 mg PO DIRECTED PRN 08/30/24 08/30/24 History (Tylenol Extra Strength) Pain albuterol sulfate 90 mcg/actuation 2 puff inhalation DIRECTED PRN 08/30/24 08/30/24 History aerosol inhaler Shortness Of Breath Or Wheezing baclofen 10 mg tablet 10 mg PO BID PRN MUSCLE SPASMS 08/30/24 08/30/24 History diclofenac sodium 75 mg 75 mg PO DAILY 08/30/24 08/30/24 History tablet,delayed release fludrocortisone 0.1 mg tablet 0.1 mg PO DAILY 08/30/24 08/30/24 History methylprednisolone 2 mg tablet 2 - 4 mg PO BID 08/30/24 08/30/24 History spironolactone 50 mg tablet 50 mg PO BID 08/30/24 08/31/24 History varenicline tartrate 1 mg tablet 1 mg PO DAILY 08/30/24 08/30/24 History (Chantix) Hospital Stay Data Consultations 08/30/24 21:51 ED Decision to Admit Stat Diagnostic Imagining Performed 08/30/24 20:09 CT abd pelvis IV con only Stat Pending Results Patient Have Any Pending Studies at Discharge: No Discharge Instructions Given to Patient (Per Discharging Provider) MEDICATION CHANGES: Resume spironolactone at home once tolerating a normal diet with fluids. Otherwise continue all medications as scheduled. SUMMARY OF TEST RESULTS: You were admitted to hospital with nausea and vomiting and found to have norovirus on PCR. Symptoms have improved and you can now tolerate food and medication by mouth. 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 PENDING TEST RESULTS: None RECOMMENDATIONS FOR FOLLOW-UP: Follow up with PCP as scheduled. Continue medication regimen as scheduled aside from changes noted above. OTHER INSTRUCTIONS: Seek medical attention if you have: * temperature above 101 * chest pain or trouble breathing * abdominal pain, nausea, vomiting * diarrhea, dark stools or bloody stools * any unanswered questions or concerns Call 911 if symptoms are severe. Please take good care of yourself. Call if you have any questions or problems. You can reach a [facility] hospitalist on duty at [facility] 24 hours a day by calling [phone]. Total Time Total Time Spent Total Time Spent (In Minutes): 40 Supervising Physician Co-Signing Physician Notes I have seen and discussed the case with the collaborating advanced practitioner. I agree with the above DS. I have reviewed and confirmed the patients medical history, the findings on physical examination, and the patients diagnosis and treatment plan with Popeye MCMANUS and agree with the information documented. Ms. Estrada is a 39 yo woman who was admitted for management of likely viral gastroenteritis. Patient improved with supportive care an tolerating diet on day of discharge. I spent a total of 10 minutes coordinating, documenting, and providing care for this patient excluding time spent in the performance of separately billed services. All of the aforementioned completed outside of collaborating with the assigned advanced practitioner for a full treatment plan. I have reviewed the advanced practitioner's documentation, and I agree with, and take responsibility for the plan of care
[2024-08-31 14:01] VITALS: BP 115/70; PULSE 81; TEMP 97.9; O2SAT 96
[2024-08-31] MEDS ORDERED: cefTRIAXone SODIUM 2,000 MG/50 ML BAG IV SCH (21:00)
== END 2024-08-31 14:24 | disposition home or self-care (01) ==
LOC: 3E 15:58 → ED 15:58 → 3E 08-31 02:43
DX: E25.0 Congenital adrenogenital disorders associated with enzyme deficiency; R74.9 Abnormal serum enzyme level, unspecified; R11.2 Nausea with vomiting, unspecified; A08.11 Acute gastroenteropathy due to Norwalk agent; Z86.718 Personal history of other venous thrombosis and embolism; F17.210 Nicotine dependence, cigarettes, uncomplicated